=== PATIENT | female | born 1975 | race Caucasian/White ===

== ENCOUNTER 2017-03-17 15:07 | Inpatient (IN) | payer OTHER, SELFPAY ==
[2017-03-17] MEDS ORDERED: Sodium Chloride 0.9% 1,000 ML IV ONE ×2 (15:53→16:21)
[2017-03-17 16:08] LABS: BASO % 0.7 % (0.0-2.0); EOS % 0.4 % (0.0-4.0); HEMATOCRIT 46.6 % (34.0-47.0); LYMPH # 1.5 K/uL (1.0-4.3); MEAN CELL VOLUME 95.9 fL (81.0-99.0); MEAN CORPUSCULAR HEMOGLOBIN 32.3 pg (27.0-31.0); MEAN CORPUSCULAR HGB CONC 33.7 g/dL (33.0-37.0); MEAN PLATELET VOLUME 9.5 fL (7.2-11.7); MONO # 0.3 K/uL (0.0-0.8); MONO % 7.4 % (0.0-10.0); NRBC % 0.1 % (0.0-2.0); RED CELL DISTRIBUTION WIDTH 14.6 % (11.5-14.5); WHITE BLOOD COUNT 4.1 K/uL (4.8-10.8)
[2017-03-17 16:13] LABS: CHLORIDE 95 mmol/L (98-107); POTASSIUM 3.6 mmol/L (3.6-5.2); SODIUM 128 mmol/L (132-148)
[2017-03-17 16:15] LABS: BILIRUBIN,TOTAL 0.5 mg/dL (0.2-1.3); GFR AFRICAN-AMERICAN > 60
[2017-03-17 16:16] LABS: ALB/GLOB RATIO 1.3 (1.0-2.1); ALKALINE PHOSPHATASE 140 U/L (38-126); ALT/SGPT 29 U/L (9-52); AST/SGOT 16 U/L (14-36); BLOOD UREA NITROGEN 12 mg/dL (7-17); CARBON DIOXIDE 13 mmol/L (22-30); TOTAL PROTEIN 7.2 g/dL (6.3-8.3)
[2017-03-17 16:17] LABS: CALCIUM 8.3 mg/dl (8.6-10.4)
[2017-03-17 16:18] LABS: GLUCOSE,RANDOM 532 mg/dL (65-105)
[2017-03-17] MEDS ORDERED: (Novolin R) Insulin Human Regular 100 units/ml vial IV STA (16:21)
[2017-03-17] MEDS ORDERED: Potassium Chloride 20 mEq/15 ml LIQ UD PO STA (16:25)
[2017-03-17 16:28] LABS: VENOUS BLOOD GAS BASE EXCESS -14.9 mmol/L (0.0-2.0); VENOUS BLOOD GAS PCO2 24 mmHg (40-60); VENOUS BLOOD PH 7.25 (7.32-7.43)
[2017-03-17] MEDS ORDERED: (Novolin R) Insulin Human Regular 100 units/ml vial ONE (16:29)
[2017-03-17] MEDS ORDERED: Potassium Chloride 20 mEq/15 ml LIQ UD ONE (16:29)
[2017-03-17] MEDS ORDERED: Sodium Chloride 0.9% 1,000 ML ONE (16:29)
[2017-03-17 16:32] LABS: RBC URINE < 1 /hpf (0-3); URINE BILIRUBIN NEGATIVE (NEGATIVE); URINE BLOOD NEGATIVE (NEGATIVE); URINE COLOR Straw (YELLOW); URINE GLUCOSE (UA) 3+ mg/dL (Normal); URINE KETONE 2+ mg/dL (NEGATIVE); URINE LEUKOCYTE ESTERASE NEG Leu/uL (Negative); URINE PROTEIN NEGATIVE (NEGATIVE); URINE UROBILINOGEN NORMAL mg/dL (0.2-1.0); WBC URINE 1 /hpf (0-5)
--- NOTE | 2017-03-17 17:00 | RAD ---
HISTORY: chest pain COMPARISON: Chest x-ray performed 07/17/15 TECHNIQUE: Chest, one view. FINDINGS: LUNGS: No focal consolidation. Please note that chest x-ray has limited sensitivity for the detection of pulmonary masses. PLEURA: No significant pleural effusion identified. Slightly asymmetric lucency within the right lung apex ; small right apical pneumothorax cannot be entirely excluded. CARDIOVASCULAR: The cardiomediastinal silhouette appears within normal limits of size. OSSEOUS STRUCTURES: No acute osseous abnormality identified. VISUALIZED UPPER ABDOMEN: Unremarkable. OTHER FINDINGS: None. IMPRESSION: Mild asymmetric lucency within the right lung apex ; small right apical pneumothorax cannot be excluded. If indicated, suggest further evaluation with expiratory film. Findings discussed with Dr. Jansen on 03/17/17 at 4:54 p.m.
[2017-03-17] MEDS ORDERED: Insulin Human Regular 100 UNIT in Sodium Chloride 0.9% 99 ML IV SCH (17:15)
--- NOTE | 2017-03-17 17:31 | CP.PCM.CON ---
History of Present Illness - History of Present Illness History of Present Illness: 40yo F. PMHx IDDM, CKD. p/w DKA. Review of Systems - Review of Systems All systems: reviewed and no additional remarkable complaints except - Gastrointestinal Gastrointestinal: Nausea Past Patient History - Infectious Disease Hx of Infectious Diseases: None - Past Medical History & Family History Past Medical History?: Yes - Past Social History Smoking Status: Never Smoked - CARDIAC Hx Cardiac Disorders: No - PULMONARY Hx Respiratory Disorders: No - NEUROLOGICAL Hx Neurological Disorder: No - HEENT Hx HEENT Problems: No - RENAL Hx Chronic Kidney Disease: No - ENDOCRINE/METABOLIC Hx Endocrine Disorders: Yes Hx Diabetes Mellitus Type 2: Yes (not on meds) - HEMATOLOGICAL/ONCOLOGICAL Hx Blood Disorders: No - INTEGUMENTARY Hx Dermatological Problems: No - MUSCULOSKELETAL/RHEUMATOLOGICAL Hx Musculoskeletal Disorders: No Hx Falls: No - GASTROINTESTINAL Hx Gastrointestinal Disorders: No - GENITOURINARY/GYNECOLOGICAL Hx Genitourinary Disorders: No - PSYCHIATRIC Hx Psychophysiologic Disorder: No Hx Substance Use: No - SURGICAL HISTORY Hx Surgeries: Yes Hx Section: Yes (1995 1997 2005) - ANESTHESIA Hx Anesthesia: Yes Hx Anesthesia Reactions: No Hx Malignant Hyperthermia: No Meds Allergies/Adverse Reactions: Allergies Allergy/AdvReac Type Severity Reaction Status Date / Time No Known Allergies Allergy Verified 03/17/17 15:34 - Medications Medications: Current Medications Insulin Human Regular 100 unit (/ Sodium Chloride) 100 mls @ 3 mls/hr IV .Q24H AUNG Last Admin: 03/17/17 17:26 Dose: 3 mls/hr Physical Exam - Head Exam Head Exam: ATRAUMATIC, NORMAL INSPECTION, NORMOCEPHALIC - ENT Exam ENT Exam: Mucous Membranes Dry - Neck Exam Neck exam: Positive for: Normal Inspection - Respiratory Exam Respiratory Exam: Clear to Auscultation Bilateral, NORMAL BREATHING PATTERN - Cardiovascular Exam Cardiovascular Exam: REGULAR RHYTHM - GI/Abdominal Exam GI & Abdominal Exam: Normal Bowel Sounds, Soft. absent: Tenderness - Extremities Exam Extremities exam: Positive for: normal inspection - Neurological Exam Neurological exam: Alert, CN II-XII Intact, Oriented x3, Reflexes Normal - Psychiatric Exam Psychiatric exam: Normal Affect, Normal Mood Results - Vital Signs Recent Vital Signs: Last Vital Signs Temp 97.9 F 03/17/17 15:15 Pulse 73 03/17/17 17:25 Resp 18 03/17/17 17:25 BP 94/65 L 10/05/17 17:25 Pulse Ox 99 03/17/17 17:25 - Labs Result Diagrams: 03/17/17 16:02 03/17/17 16:02 Labs: Laboratory Results - last 24 hr 03/17/17 03/17/17 03/17/17 15:39 16:02 16:02 WBC 4.1 L RBC 4.86 Hgb 15.7 D Hct 46.6 MCV 95.9 D MCH 32.3 H MCHC 33.7 RDW 14.6 H Plt Count 212 MPV 9.5 Neut % (Auto) 56.5 Lymph % (Auto) 35.0 Ray % (Auto) 7.4 Eos % (Auto) 0.4 Baso % (Auto) 0.7 Neut # 2.3 Lymph # 1.5 Ray # 0.3 Eos # 0.0 Baso # 0.0 pO2 VBG pH VBG pCO2 VBG HCO3 VBG Total CO2 VBG O2 Sat (Calc) VBG Base Excess VBG Potassium A-a O2 Difference Glucose Lactate FiO2 Crit Value Called To Crit Value Called By Crit Value Read Back Blood Gas Notified Time Sodium 128 L Potassium 3.6 Chloride 95 L Carbon Dioxide 13 L Anion Gap 24 H BUN 12 Creatinine 0.5 L Est GFR ( Amer) > 60 Est GFR (Non-Af Amer) > 60 POC Glucose (mg/dL) 434 H* Random Glucose 532 H* D Calcium 8.3 L Total Bilirubin 0.5 AST 16 ALT 29 Alkaline Phosphatase 140 H Troponin I < 0.0120 Total Protein 7.2 Albumin 4.1 Globulin 3.1 Albumin/Globulin Ratio 1.3 Venous Blood Potassium Urine Color Urine Clarity Urine pH Ur Specific Perry Urine Protein Urine Glucose (UA) Urine Ketones Urine Blood Urine Nitrate Urine Bilirubin Urine Urobilinogen Ur Leukocyte Esterase Urine WBC (Auto) Urine RBC (Auto) Ur Squamous Epith Cells Urine HCG, Qual Urine Opiates Screen Urine Methadone Screen Ur Barbiturates Screen Ur Phencyclidine Scrn Ur Amphetamines Screen U Benzodiazepines Scrn U Oth Cocaine Metabols U Cannabinoids Screen Serum Ketones Moderate 03/17/17 03/17/17 03/17/17 16:02 16:04 16:04 WBC RBC Hgb Hct MCV MCH MCHC RDW Plt Count MPV Neut % (Auto) Lymph % (Auto) Ray % (Auto) Eos % (Auto) Baso % (Auto) Neut # Lymph # Ray # Eos # Baso # pO2 VBG pH VBG pCO2 VBG HCO3 VBG Total CO2 VBG O2 Sat (Calc) VBG Base Excess VBG Potassium A-a O2 Difference Glucose Lactate FiO2 Crit Value Called To Crit Value Called By Crit Value Read Back Blood Gas Notified Time Sodium Potassium Chloride Carbon Dioxide Anion Gap BUN Creatinine Est GFR ( Amer) Est GFR (Non-Af Amer) POC Glucose (mg/dL) Random Glucose Calcium Total Bilirubin AST ALT Alkaline Phosphatase Troponin I Total Protein Albumin Globulin Albumin/Globulin Ratio Venous Blood Potassium Urine Color Straw Urine Clarity Clear Urine pH 5.0 Ur Specific Perry 1.026 Urine Protein Negative Urine Glucose (UA) 3+ H Urine Ketones 2+ H Urine Blood Negative Urine Nitrate Negative Urine Bilirubin Negative Urine Urobilinogen Normal Ur Leukocyte Esterase Neg Urine WBC (Auto) 1 Urine RBC (Auto) < 1 Ur Squamous Epith Cells < 1 Urine HCG, Qual Negative Urine Opiates Screen Negative Urine Methadone Screen Negative Ur Barbiturates Screen Negative Ur Phencyclidine Scrn Negative Ur Amphetamines Screen Negative U Benzodiazepines Scrn Negative U Oth Cocaine Metabols Negative U Cannabinoids Screen Negative Serum Ketones 03/17/17 16:22 WBC RBC Hgb Hct MCV MCH MCHC RDW Plt Count MPV Neut % (Auto) Lymph % (Auto) Ray % (Auto) Eos % (Auto) Baso % (Auto) Neut # Lymph # Ray # Eos # Baso # pO2 63 H VBG pH 7.25 L VBG pCO2 24 L VBG HCO3 13.0 VBG Total CO2 11.2 L VBG O2 Sat (Calc) 92.7 H VBG Base Excess -14.9 L VBG Potassium 3.0 L A-a O2 Difference 57.0 Glucose 463 H* Lactate 0.7 FiO2 21.0 Crit Value Called To Tejal Crit Value Called By Stevenson endoscopy technician Crit Value Read Back Y Blood Gas Notified Time 1628 Sodium 132.0 Potassium Chloride 103.0 Carbon Dioxide Anion Gap BUN Creatinine Est GFR ( Amer) Est GFR (Non-Af Amer) POC Glucose (mg/dL) Random Glucose Calcium Total Bilirubin AST ALT Alkaline Phosphatase Troponin I Total Protein Albumin Globulin Albumin/Globulin Ratio Venous Blood Potassium 3.0 L Urine Color Urine Clarity Urine pH Ur Specific Perry Urine Protein Urine Glucose (UA) Urine Ketones Urine Blood Urine Nitrate Urine Bilirubin Urine Urobilinogen Ur Leukocyte Esterase Urine WBC (Auto) Urine RBC (Auto) Ur Squamous Epith Cells Urine HCG, Qual Urine Opiates Screen Urine Methadone Screen Ur Barbiturates Screen Ur Phencyclidine Scrn Ur Amphetamines Screen U Benzodiazepines Scrn U Oth Cocaine Metabols U Cannabinoids Screen Serum Ketones Assessment & Plan (1) DKA (diabetic ketoacidoses) Assessment and Plan: 40yo F. PMHx IDDM, CKD. p/w DKA secondary to non-compliance. Neuro: alert and oriented x 3 Pulm: no acute issues, breathing spontaneously on room air CV: hemodynamically stable Hem: no acute issues Renal: no acute issues, urine output wnl, will monitor. [id number]@200 Endo: DKA, started on insulin drip. GI: NPO ID: no acute issues, will monitor. DVT proph - lovenox GI proph - not currently indicated khoury for strict I/O's during acute illness Code status - full code Critical Care Time spent 35 minutes The documented time is cumulative and includes review of patient data/exams/labs /chart review and examination of the patient on rounds and throughout the day; time is exclusive of any procedures or teaching time. Status: Acute
--- NOTE | 2017-03-17 17:57 | RAD ---
HISTORY: follow up x-ray COMPARISON: Chest x-ray performed 03/17/17 at 1613 hours. TECHNIQUE: Chest, one view. FINDINGS: LUNGS: No focal consolidation. Please note that chest x-ray has limited sensitivity for the detection of pulmonary masses. PLEURA: No significant pleural effusion identified. No definite pneumothorax . CARDIOVASCULAR: Heart size appears within normal limits. OSSEOUS STRUCTURES: Degenerative changes. VISUALIZED UPPER ABDOMEN: Unremarkable. OTHER FINDINGS: None. IMPRESSION: No focal consolidation, significant pleural effusion, or definite pneumothorax identified.
--- NOTE | 2017-03-17 18:23 | C.PDOC ---
History Of Present Illness 41 year old female presents to the ED for evaluation of generalized weakness which began around 3 days ago. Patient also reports nausea. Patient states she is a known Insulin Dependent Diabetic but has not taken insulin in around 6 months. Patient states she has been eating normally and denies fever, chills, shortness of breath, vomiting. Time Seen by Provider: 03/17/17 15:48 Chief Complaint (Nursing): Chest Pain History Per: Patient History/Exam Limitations: no limitations Onset/Duration Of Symptoms: Days (3) Current Symptoms Are (Timing): Still Present Associated Symptoms: Nausea Additional History Per: Patient Past Medical History Reviewed: Historical Data, Nursing Documentation, Vital Signs Vital Signs: Last Vital Signs Temp 98.4 F 03/17/17 20:00 Pulse 63 03/17/17 21:50 Resp 14 03/17/17 21:50 BP 91/59 L 03/17/17 21:50 Pulse Ox 99 03/17/17 21:50 - Medical History PMH: Diabetes Surgical History: No Surg Hx - [facility] Procedures INTRODUCTION OF SERUM/TOX/VACCINE INTO MUSCLE, PERC APPROACH (07/17/15) Family History: States: Unknown Family Hx - Social History Hx Tobacco Use: No Hx Alcohol Use: No Hx Substance Use: No Review Of Systems Constitutional: Positive for: Weakness. Negative for: Fever, Chills Respiratory: Negative for: Shortness of Breath Gastrointestinal: Positive for: Nausea. Negative for: Vomiting Physical Exam - Physical Exam Appears: Non-toxic, No Acute Distress Skin: Normal Color, Warm, Dry Head: Atraumatic, Normacephalic Eye(s): bilateral: Normal Inspection Oral Mucosa: Dry Neck: Supple Chest: Symmetrical, No Deformity, No Tenderness Cardiovascular: Rhythm Regular, No Murmur Respiratory: Normal Breath Sounds, No Rales, No Rhonchi, No Wheezing Gastrointestinal/Abdominal: Soft, No Tenderness, No Guarding, No Rebound Extremity: Normal ROM, Capillary Refill (less than 2 seconds ) Neurological/Psych: Oriented x3, Normal Speech, Normal Cognition Gait: Steady ED Course And Treatment - Laboratory Results Result Diagrams: 03/17/17 16:02 03/17/17 20:51 O2 Sat by Pulse Oximetry: 98 (on RA) Pulse Ox Interpretation: Normal Progress Note: labs, EKG, CXR ordered and reviewed. Novolin IV, Potassium Chloride PO, and IV Fluids administered. Case discussed with [facility] and hospitalist. Patient has been accepted by [facility] for further care. Disposition - Disposition Disposition: HOSPITALIZED Disposition Time: 17:00 Condition: GUARDED - Clinical Impression Clinical Impression: DKA (diabetic ketoacidoses) - Scribe Statement The provider has reviewed the documentation as recorded by the Scribe (Lauren Lynn) Provider Attestation: All medical record entries made by the Scribe were at my direction and personally dictated by me. I have reviewed the chart and agree that the record accurately reflects my personal performance of the history, physical exam, medical decision making, and the department course for this patient. I have also personally directed, reviewed, and agree with the discharge instructions and disposition.
[2017-03-17] MEDS ORDERED: Insulin Human Regular 100 UNIT in Sodium Chloride 0.9% 99 ML IV PRN (18:51)
[2017-03-17] MEDS: Potassium Chloride 20 MEQ in Dextrose 5%/0.9% NS 1,000 ML IV SCH (21:00)
[2017-03-17 21:03] LABS: CHLORIDE 106 mmol/L (98-107); SODIUM 132 mmol/L (132-148)
[2017-03-17 21:04] LABS: POTASSIUM 2.7 mmol/L (3.6-5.2)
[2017-03-17 21:06] LABS: GFR AFRICAN-AMERICAN > 60
[2017-03-17 21:07] LABS: BLOOD UREA NITROGEN 9 mg/dL (7-17); CALCIUM 6.5 mg/dl (8.6-10.4); CARBON DIOXIDE 17 mmol/L (22-30); GLUCOSE,RANDOM 113 mg/dL (65-105)
[2017-03-18 01:05] LABS: CHLORIDE 108 mmol/L (98-107); POTASSIUM 2.9 mmol/L (3.6-5.2); SODIUM 134 mmol/L (132-148)
[2017-03-18 01:08] LABS: BLOOD UREA NITROGEN 7 mg/dL (7-17); CALCIUM 7.1 mg/dl (8.6-10.4); CARBON DIOXIDE 20 mmol/L (22-30); GFR AFRICAN-AMERICAN > 60; GLUCOSE,RANDOM 103 mg/dL (65-105)
[2017-03-18] MEDS ORDERED: (Lantus) Insulin Glargine, Recombinant SC STA (01:33)
[2017-03-18] MEDS: Potassium Chloride 20 MEQ in Dextrose 5%/0.9% NS 1,000 ML IV SCH (01:53)
[2017-03-18 06:24] LABS: BASO % 0.3 % (0.0-2.0); EOS # 0.1 K/uL (0.0-0.7); EOS % 1.4 % (0.0-4.0); HEMATOCRIT 33.9 % (34.0-47.0); LYMPH # 1.8 K/uL (1.0-4.3); LYMPH % 37.4 % (20.0-40.0); MEAN CORPUSCULAR HEMOGLOBIN 32.8 pg (27.0-31.0); MEAN CORPUSCULAR HGB CONC 35.2 g/dL (33.0-37.0); MONO # 0.4 K/uL (0.0-0.8); MONO % 7.9 % (0.0-10.0); NRBC % 0.1 % (0.0-2.0); RED CELL DISTRIBUTION WIDTH 14.5 % (11.5-14.5); WHITE BLOOD COUNT 4.8 K/uL (4.8-10.8)
[2017-03-18 06:36] LABS: CHLORIDE 111 mmol/L (98-107)
[2017-03-18 06:38] LABS: GFR AFRICAN-AMERICAN > 60
[2017-03-18 06:39] LABS: BLOOD UREA NITROGEN 9 mg/dL (7-17); CALCIUM 7.4 mg/dl (8.6-10.4); CARBON DIOXIDE 18 mmol/L (22-30); GLUCOSE,RANDOM 127 mg/dL (65-105); MAGNESIUM 1.7 mg/dL (1.6-2.3); PHOSPHOROUS 2.8 mg/dL (2.5-4.5)
[2017-03-18 06:42] LABS: SODIUM 136 mmol/L (132-148)
[2017-03-18] MEDS ORDERED: Magnesium Sulfate 1 gm in D5W 1 GM/100 ML BAG IVPB ONE (07:15)
[2017-03-18] MEDS: (Novolog) Insulin Aspart, Recombinant 100 u/ml 10 ml vial SC SCH ×4 (07:38→23:33)
[2017-03-18] MEDS ORDERED: Potassium Chloride 20 mEq ER Tab PO ONE ×2 (08:00→08:58)
--- NOTE | 2017-03-18 09:01 | CP.CCUPN ---
CCU Subjective - Physician Review Subjective (Free Text): Patient was seen and examined at bedside. Patient reports that she is doing well and her symptoms have improved. Patient denies chest pain, SOB, palpitations, abdominal pain, nausea, vomiting, urinary symptoms. The importance of glucose control was discussed with patient and patient understood and plans to obtain tejal care in order to obtain access to care. CCU Objective - Vital Signs / Intake & Output Vital Signs (Last 4 hours): Vital Signs Temp Pulse Resp BP Pulse Ox 03/18/17 08:00 79 17 100 03/18/17 07:51 98 F 03/18/17 07:50 64 13 81/55 L 99 03/18/17 07:37 59 L 14 82/56 L 03/18/17 06:50 63 13 93/65 L 99 03/18/17 05:50 71 12 82/53 L 97 Intake and Output (Last 8hrs): Intake & Output 03/17/17 03/18/17 03/18/17 22:59 06:59 14:59 Intake Total 1010 1214 220 Output Total 0 1100 Balance 1010 1214 -880 Weight 107 lb 8 oz 108 lb Intake: Intake, IV Amount 1010 1214 100 Left Forearm 1000 1200 0 Right Wrist 10 14 100 Oral 0 120 Output: Urine 0 1100 Urine, Voided 0 1100 Other: # Voids Urine, Voided 0 # Bowel Movements 0 - Physical Exam Head: Positive for: Atraumatic, Normocephalic Extroacular Muscles: Positive for: EOMI Mouth: Positive for: Moist Mucous Membranes Respiratory/Chest: Positive for: Clear to Auscultation, Good Air Exchange. Negative for: Respiratory Distress, Accessory Muscle Use Abdomen: Positive for: Normal Bowel Sounds. Negative for: Tenderness, Distention Upper Extremity: Positive for: Normal Inspection. Negative for: Edema Lower Extremity: Positive for: Normal Inspection. Negative for: Edema Neurological: Positive for: GCS=15, Speech Normal Skin: Positive for: Warm, Normal Color Psychiatric: Positive for: Alert, Oriented x 3 - Medications Active Medications: Active Medications Generic Name Dose Route Start Last Admin Trade Name Freq PRN Reason Stop Dose Admin Potassium Chloride 20 meq in 100 mls @ 50 mls/hr 03/18/17 07:15 03/18/17 07: 25 Potassium Chloride 20 Meq/100 Ml IVPB 03/18/17 09:14 50 mls/hr ONCE ONE Administration Insulin Aspart 0 unit 03/18/17 07:30 03/18/17 07:38 Novolog SC Not Given ACHS AUNG Protocol Insulin Glargine 10 unit 03/18/17 22:00 Lantus SC HS AUNG Potassium Chloride 40 meq 03/18/17 08:58 K-Dur 20 Meq Er Tab PO 03/18/17 08:59 ONCE ONE - Patient Studies Lab Studies: Lab Studies 03/18/17 03/18/17 03/18/17 Range/Units 07:37 06:17 06:17 WBC 4.8 (4.8-10.8) K/uL RBC 3.65 L (3.80-5.20) Mil/uL Hgb 12.0 D (11.0-16.0) g/dL Hct 33.9 L (34.0-47.0) % MCV 93.0 D (81.0-99.0) fL MCH 32.8 H (27.0-31.0) pg MCHC 35.2 (33.0-37.0) g/dL RDW 14.5 (11.5-14.5) % Plt Count 153 (130-400) K/uL MPV 9.0 (7.2-11.7) fL Neut % (Auto) 53.0 (50.0-75.0) % Lymph % (Auto) 37.4 (20.0-40.0) % [place] % (Auto) 7.9 (0.0-10.0) % Eos % (Auto) 1.4 (0.0-4.0) % Baso % (Auto) 0.3 (0.0-2.0) % Neut # 2.5 (1.8-7.0) K/uL Lymph # 1.8 (1.0-4.3) K/uL Sl[place] # 0.4 (0.0-0.8) K/uL Eos # 0.1 (0.0-0.7) K/uL Baso # 0.0 (0.0-0.2) K/uL pO2 (30-55) mm/Hg VBG pH (7.32-7.43) VBG pCO2 (40-60) mmHg VBG HCO3 mmol/L VBG Total CO2 (22-28) mmol/L VBG O2 Sat (Calc) (40-65) % VBG Base Excess (0.0-2.0) mmol/L VBG Potassium (3.6-5.2) mmol/L A-a O2 Difference mm/Hg Glucose (65-105) mg/dl Lactate (0.7-2.1) mmol/L FiO2 % Crit Value Called To Crit Value Called By Crit Value Read Back Blood Gas Notified Time Sodium 136 (132-148) mmol/L Potassium 3.0 L (3.6-5.2) mmol/L Chloride 111 H (98-107) mmol/L Carbon Dioxide 18 L (22-30) mmol/L Anion Gap 10 (10-20) BUN 9 (7-17) mg/dL Creatinine 0.3 L (0.7-1.2) mg/dL Est GFR ( Amer) > 60 Est GFR (Non-Af Amer) > 60 POC Glucose (mg/dL) 111 H (65-110) mg/dL Random Glucose 127 H (65-105) mg/dL Calcium 7.4 L (8.6-10.4) mg/dl Phosphorus 2.8 (2.5-4.5) mg/dL Magnesium 1.7 (1.6-2.3) mg/dL Total Bilirubin (0.2-1.3) mg/dL AST (14-36) U/L ALT (9-52) U/L Alkaline Phosphatase (38-126) U/L Troponin I (0.00-0.120) ng/mL Total Protein (6.3-8.3) g/dL Albumin (3.5-5.0) g/dL Globulin (2.2-3.9) gm/dL Albumin/Globulin Ratio (1.0-2.1) Venous Blood Potassium (3.6-5.2) mmol/L Urine Color (YELLOW) Urine Clarity (Clear) Urine pH (5.0-8.0) Ur Specific [place] (1.003-1.030) Urine Protein (NEGATIVE) mg/dL Urine Glucose (UA) (Normal) mg/dL Urine Ketones (NEGATIVE) mg/dL Urine Blood (NEGATIVE) Urine Nitrate (NEGATIVE) Urine Bilirubin (NEGATIVE) Urine Urobilinogen (0.2-1.0) mg/dL Ur Leukocyte Esterase (Negative) Cheikh/uL Urine WBC (Auto) (0-5) /hpf Urine RBC (Auto) (0-3) /hpf Ur Squamous Epith Cells (0-5) /hpf Urine HCG, Qual (NEGATIVE) Urine Opiates Screen (NEGATIVE) Urine Methadone Screen (NEGATIVE) Ur Barbiturates Screen (NEGATIVE) Ur Phencyclidine Scrn (NEGATIVE) Ur Amphetamines Screen (NEGATIVE) U Benzodiazepines Scrn (NEGATIVE) U Oth Cocaine Metabols (NEGATIVE) U Cannabinoids Screen (NEGATIVE) Serum Ketones (NEGATIVE) 03/18/17 03/18/17 03/18/17 Range/Units 05:58 05:00 04:06 WBC (4.8-10.8) K/uL RBC (3.80-5.20) Mil/uL Hgb (11.0-16.0) g/dL Hct (34.0-47.0) % MCV (81.0-99.0) fL MCH (27.0-31.0) pg MCHC (33.0-37.0) g/dL RDW (11.5-14.5) % Plt Count (130-400) K/uL MPV (7.2-11.7) fL Neut % (Auto) (50.0-75.0) % Lymph % (Auto) (20.0-40.0) % [place] % (Auto) (0.0-10.0) % Eos % (Auto) (0.0-4.0) % Baso % (Auto) (0.0-2.0) % Neut # (1.8-7.0) K/uL Lymph # (1.0-4.3) K/uL [place] # (0.0-0.8) K/uL Eos # (0.0-0.7) K/uL Baso # (0.0-0.2) K/uL pO2 (30-55) mm/Hg VBG pH (7.32-7.43) VBG pCO2 (40-60) mmHg VBG HCO3 mmol/L VBG Total CO2 (22-28) mmol/L VBG O2 Sat (Calc) (40-65) % VBG Base Excess (0.0-2.0) mmol/L VBG Potassium (3.6-5.2) mmol/L A-a O2 Difference mm/Hg Glucose (65-105) mg/dl Lactate (0.7-2.1) mmol/L FiO2 % Crit Value Called To Crit Value Called By Crit Value Read Back Blood Gas Notified Time Sodium (132-148) mmol/L Potassium (3.6-5.2) mmol/L Chloride (98-107) mmol/L Carbon Dioxide (22-30) mmol/L Anion Gap (10-20) BUN (7-17) mg/dL Creatinine (0.7-1.2) mg/dL Est GFR ( Amer) Est GFR (Non-Af Amer) POC Glucose (mg/dL) 183 H 237 H 296 H (65-110) mg/dL Random Glucose (65-105) mg/dL Calcium (8.6-10.4) mg/dl Phosphorus (2.5-4.5) mg/dL Magnesium (1.6-2.3) mg/dL Total Bilirubin (0.2-1.3) mg/dL AST (14-36) U/L ALT (9-52) U/L Alkaline Phosphatase (38-126) U/L Troponin I (0.00-0.120) ng/mL Total Protein (6.3-8.3) g/dL Albumin (3.5-5.0) g/dL Globulin (2.2-3.9) gm/dL Albumin/Globulin Ratio (1.0-2.1) Venous Blood Potassium (3.6-5.2) mmol/L Urine Color (YELLOW) Urine Clarity (Clear) Urine pH (5.0-8.0) Ur Specific [place] (1.003-1.030) Urine Protein (NEGATIVE) mg/dL Urine Glucose (UA) (Normal) mg/dL Urine Ketones (NEGATIVE) mg/dL Urine Blood (NEGATIVE) Urine Nitrate (NEGATIVE) Urine Bilirubin (NEGATIVE) Urine Urobilinogen (0.2-1.0) mg/dL Ur Leukocyte Esterase (Negative) Cheikh/uL Urine WBC (Auto) (0-5) /hpf Urine RBC (Auto) (0-3) /hpf Ur Squamous Epith Cells (0-5) /hpf Urine HCG, Qual (NEGATIVE) Urine Opiates Screen (NEGATIVE) Urine Methadone Screen (NEGATIVE) Ur Barbiturates Screen (NEGATIVE) Ur Phencyclidine Scrn (NEGATIVE) Ur Amphetamines Screen (NEGATIVE) U Benzodiazepines Scrn (NEGATIVE) U Oth Cocaine Metabols (NEGATIVE) U Cannabinoids Screen (NEGATIVE) Serum Ketones (NEGATIVE) 03/18/17 03/18/17 03/18/17 Range/Units 03:11 01:02 00:50 WBC (4.8-10.8) K/uL RBC (3.80-5.20) Mil/uL Hgb (11.0-16.0) g/dL Hct (34.0-47.0) % MCV (81.0-99.0) fL MCH (27.0-31.0) pg MCHC (33.0-37.0) g/dL RDW (11.5-14.5) % Plt Count (130-400) K/uL MPV (7.2-11.7) fL Neut % (Auto) (50.0-75.0) % Lymph % (Auto) (20.0-40.0) % [place] % (Auto) (0.0-10.0) % Eos % (Auto) (0.0-4.0) % Baso % (Auto) (0.0-2.0) % Neut # (1.8-7.0) K/uL Lymph # (1.0-4.3) K/uL [place] # (0.0-0.8) K/uL Eos # (0.0-0.7) K/uL Baso # (0.0-0.2) K/uL pO2 (30-55) mm/Hg VBG pH (7.32-7.43) VBG pCO2 (40-60) mmHg VBG HCO3 mmol/L VBG Total CO2 (22-28) mmol/L VBG O2 Sat (Calc) (40-65) % VBG Base Excess (0.0-2.0) mmol/L VBG Potassium (3.6-5.2) mmol/L A-a O2 Difference mm/Hg Glucose (65-105) mg/dl Lactate (0.7-2.1) mmol/L FiO2 % Crit Value Called To Crit Value Called By Crit Value Read Back Blood Gas Notified Time Sodium 134 (132-148) mmol/L Potassium 2.9 L (3.6-5.2) mmol/L Chloride 108 H (98-107) mmol/L Carbon Dioxide 20 L (22-30) mmol/L Anion Gap 9 L (10-20) BUN 7 (7-17) mg/dL Creatinine 0.3 L (0.7-1.2) mg/dL Est GFR ( Amer) > 60 Est GFR (Non-Af Amer) > 60 POC Glucose (mg/dL) 315 H 111 H (65-110) mg/dL Random Glucose 103 (65-105) mg/dL Calcium 7.1 L (8.6-10.4) mg/dl Phosphorus (2.5-4.5) mg/dL Magnesium (1.6-2.3) mg/dL Total Bilirubin (0.2-1.3) mg/dL AST (14-36) U/L ALT (9-52) U/L Alkaline Phosphatase (38-126) U/L Troponin I (0.00-0.120) ng/mL Total Protein (6.3-8.3) g/dL Albumin (3.5-5.0) g/dL Globulin (2.2-3.9) gm/dL Albumin/Globulin Ratio (1.0-2.1) Venous Blood Potassium (3.6-5.2) mmol/L Urine Color (YELLOW) Urine Clarity (Clear) Urine pH (5.0-8.0) Ur Specific [place] (1.003-1.030) Urine Protein (NEGATIVE) mg/dL Urine Glucose (UA) (Normal) mg/dL Urine Ketones (NEGATIVE) mg/dL Urine Blood (NEGATIVE) Urine Nitrate (NEGATIVE) Urine Bilirubin (NEGATIVE) Urine Urobilinogen (0.2-1.0) mg/dL Ur Leukocyte Esterase (Negative) Cheikh/uL Urine WBC (Auto) (0-5) /hpf Urine RBC (Auto) (0-3) /hpf Ur Squamous Epith Cells (0-5) /hpf Urine HCG, Qual (NEGATIVE) Urine Opiates Screen (NEGATIVE) Urine Methadone Screen (NEGATIVE) Ur Barbiturates Screen (NEGATIVE) Ur Phencyclidine Scrn (NEGATIVE) Ur Amphetamines Screen (NEGATIVE) U Benzodiazepines Scrn (NEGATIVE) U Oth Cocaine Metabols (NEGATIVE) U Cannabinoids Screen (NEGATIVE) Serum Ketones (NEGATIVE) 03/17/17 03/17/17 03/17/17 Range/Units 23:57 23:07 22:05 WBC (4.8-10.8) K/uL RBC (3.80-5.20) Mil/uL Hgb (11.0-16.0) g/dL Hct (34.0-47.0) % MCV (81.0-99.0) fL MCH (27.0-31.0) pg MCHC (33.0-37.0) g/dL RDW (11.5-14.5) % Plt Count (130-400) K/uL MPV (7.2-11.7) fL Neut % (Auto) (50.0-75.0) % Lymph % (Auto) (20.0-40.0) % [place] % (Auto) (0.0-10.0) % Eos % (Auto) (0.0-4.0) % Baso % (Auto) (0.0-2.0) % Neut # (1.8-7.0) K/uL Lymph # (1.0-4.3) K/uL [place] # (0.0-0.8) K/uL Eos # (0.0-0.7) K/uL Baso # (0.0-0.2) K/uL pO2 (30-55) mm/Hg VBG pH (7.32-7.43) VBG pCO2 (40-60) mmHg VBG HCO3 mmol/L VBG Total CO2 (22-28) mmol/L VBG O2 Sat (Calc) (40-65) % VBG Base Excess (0.0-2.0) mmol/L VBG Potassium (3.6-5.2) mmol/L A-a O2 Difference mm/Hg Glucose (65-105) mg/dl Lactate (0.7-2.1) mmol/L FiO2 % Crit Value Called To Crit Value Called By Crit Value Read Back Blood Gas Notified Time Sodium (132-148) mmol/L Potassium (3.6-5.2) mmol/L Chloride (98-107) mmol/L Carbon Dioxide (22-30) mmol/L Anion Gap (10-20) BUN (7-17) mg/dL Creatinine (0.7-1.2) mg/dL Est GFR ( Amer) Est GFR (Non-Af Amer) POC Glucose (mg/dL) 133 H 166 H 172 H (65-110) mg/dL Random Glucose (65-105) mg/dL Calcium (8.6-10.4) mg/dl Phosphorus (2.5-4.5) mg/dL Magnesium (1.6-2.3) mg/dL Total Bilirubin (0.2-1.3) mg/dL AST (14-36) U/L ALT (9-52) U/L Alkaline Phosphatase (38-126) U/L Troponin I (0.00-0.120) ng/mL Total Protein (6.3-8.3) g/dL Albumin (3.5-5.0) g/dL Globulin (2.2-3.9) gm/dL Albumin/Globulin Ratio (1.0-2.1) Venous Blood Potassium (3.6-5.2) mmol/L Urine Color (YELLOW) Urine Clarity (Clear) Urine pH (5.0-8.0) Ur Specific [place] (1.003-1.030) Urine Protein (NEGATIVE) mg/dL Urine Glucose (UA) (Normal) mg/dL Urine Ketones (NEGATIVE) mg/dL Urine Blood (NEGATIVE) Urine Nitrate (NEGATIVE) Urine Bilirubin (NEGATIVE) Urine Urobilinogen (0.2-1.0) mg/dL Ur Leukocyte Esterase (Negative) Cheikh/uL Urine WBC (Auto) (0-5) /hpf Urine RBC (Auto) (0-3) /hpf Ur Squamous Epith Cells (0-5) /hpf Urine HCG, Qual (NEGATIVE) Urine Opiates Screen (NEGATIVE) Urine Methadone Screen (NEGATIVE) Ur Barbiturates Screen (NEGATIVE) Ur Phencyclidine Scrn (NEGATIVE) Ur Amphetamines Screen (NEGATIVE) U Benzodiazepines Scrn (NEGATIVE) U Oth Cocaine Metabols (NEGATIVE) U Cannabinoids Screen (NEGATIVE) Serum Ketones (NEGATIVE) 03/17/17 03/17/17 03/17/17 Range/Units 21:04 20:51 20:17 WBC (4.8-10.8) K/uL RBC (3.80-5.20) Mil/uL Hgb (11.0-16.0) g/dL Hct (34.0-47.0) % MCV (81.0-99.0) fL MCH (27.0-31.0) pg MCHC (33.0-37.0) g/dL RDW (11.5-14.5) % Plt Count (130-400) K/uL MPV (7.2-11.7) fL Neut % (Auto) (50.0-75.0) % Lymph % (Auto) (20.0-40.0) % [place] % (Auto) (0.0-10.0) % Eos % (Auto) (0.0-4.0) % Baso % (Auto) (0.0-2.0) % Neut # (1.8-7.0) K/uL Lymph # (1.0-4.3) K/uL [place] # (0.0-0.8) K/uL Eos # (0.0-0.7) K/uL Baso # (0.0-0.2) K/uL pO2 (30-55) mm/Hg VBG pH (7.32-7.43) VBG pCO2 (40-60) mmHg VBG HCO3 mmol/L VBG Total CO2 (22-28) mmol/L VBG O2 Sat (Calc) (40-65) % VBG Base Excess (0.0-2.0) mmol/L VBG Potassium (3.6-5.2) mmol/L A-a O2 Difference mm/Hg Glucose (65-105) mg/dl Lactate (0.7-2.1) mmol/L FiO2 % Crit Value Called To Crit Value Called By Crit Value Read Back Blood Gas Notified Time Sodium 132 (132-148) mmol/L Potassium 2.7 L (3.6-5.2) mmol/L Chloride 106 (98-107) mmol/L Carbon Dioxide 17 L (22-30) mmol/L Anion Gap 12 (10-20) BUN 9 (7-17) mg/dL Creatinine 0.3 L (0.7-1.2) mg/dL Est GFR ( Amer) > 60 Est GFR (Non-Af Amer) > 60 POC Glucose (mg/dL) 136 H 126 H (65-110) mg/dL Random Glucose 113 H (65-105) mg/dL Calcium 6.5 L (8.6-10.4) mg/dl Phosphorus (2.5-4.5) mg/dL Magnesium (1.6-2.3) mg/dL Total Bilirubin (0.2-1.3) mg/dL AST (14-36) U/L ALT (9-52) U/L Alkaline Phosphatase (38-126) U/L Troponin I (0.00-0.120) ng/mL Total Protein (6.3-8.3) g/dL Albumin (3.5-5.0) g/dL Globulin (2.2-3.9) gm/dL Albumin/Globulin Ratio (1.0-2.1) Venous Blood Potassium (3.6-5.2) mmol/L Urine Color (YELLOW) Urine Clarity (Clear) Urine pH (5.0-8.0) Ur Specific [place] (1.003-1.030) Urine Protein (NEGATIVE) mg/dL Urine Glucose (UA) (Normal) mg/dL Urine Ketones (NEGATIVE) mg/dL Urine Blood (NEGATIVE) Urine Nitrate (NEGATIVE) Urine Bilirubin (NEGATIVE) Urine Urobilinogen (0.2-1.0) mg/dL Ur Leukocyte Esterase (Negative) Cheikh/uL Urine WBC (Auto) (0-5) /hpf Urine RBC (Auto) (0-3) /hpf Ur Squamous Epith Cells (0-5) /hpf Urine HCG, Qual (NEGATIVE) Urine Opiates Screen (NEGATIVE) Urine Methadone Screen (NEGATIVE) Ur Barbiturates Screen (NEGATIVE) Ur Phencyclidine Scrn (NEGATIVE) Ur Amphetamines Screen (NEGATIVE) U Benzodiazepines Scrn (NEGATIVE) U Oth Cocaine Metabols (NEGATIVE) U Cannabinoids Screen (NEGATIVE) Serum Ketones (NEGATIVE) 03/17/17 03/17/17 03/17/17 Range/Units 19:34 18:04 17:26 WBC (4.8-10.8) K/uL RBC (3.80-5.20) Mil/uL Hgb (11.0-16.0) g/dL Hct (34.0-47.0) % MCV (81.0-99.0) fL MCH (27.0-31.0) pg MCHC (33.0-37.0) g/dL RDW (11.5-14.5) % Plt Count (130-400) K/uL MPV (7.2-11.7) fL Neut % (Auto) (50.0-75.0) % Lymph % (Auto) (20.0-40.0) % [place] % (Auto) (0.0-10.0) % Eos % (Auto) (0.0-4.0) % Baso % (Auto) (0.0-2.0) % Neut # (1.8-7.0) K/uL Lymph # (1.0-4.3) K/uL [place] # (0.0-0.8) K/uL Eos # (0.0-0.7) K/uL Baso # (0.0-0.2) K/uL pO2 (30-55) mm/Hg VBG pH (7.32-7.43) VBG pCO2 (40-60) mmHg VBG HCO3 mmol/L VBG Total CO2 (22-28) mmol/L VBG O2 Sat (Calc) (40-65) % VBG Base Excess (0.0-2.0) mmol/L VBG Potassium (3.6-5.2) mmol/L A-a O2 Difference mm/Hg Glucose (65-105) mg/dl Lactate (0.7-2.1) mmol/L FiO2 % Crit Value Called To Crit Value Called By Crit Value Read Back Blood Gas Notified Time Sodium (132-148) mmol/L Potassium (3.6-5.2) mmol/L Chloride (98-107) mmol/L Carbon Dioxide (22-30) mmol/L Anion Gap (10-20) BUN (7-17) mg/dL Creatinine (0.7-1.2) mg/dL Est GFR ( Amer) Est GFR (Non-Af Amer) POC Glucose (mg/dL) 165 H 245 H 316 H (65-110) mg/dL Random Glucose (65-105) mg/dL Calcium (8.6-10.4) mg/dl Phosphorus (2.5-4.5) mg/dL Magnesium (1.6-2.3) mg/dL Total Bilirubin (0.2-1.3) mg/dL AST (14-36) U/L ALT (9-52) U/L Alkaline Phosphatase (38-126) U/L Troponin I (0.00-0.120) ng/mL Total Protein (6.3-8.3) g/dL Albumin (3.5-5.0) g/dL Globulin (2.2-3.9) gm/dL Albumin/Globulin Ratio (1.0-2.1) Venous Blood Potassium (3.6-5.2) mmol/L Urine Color (YELLOW) Urine Clarity (Clear) Urine pH (5.0-8.0) Ur Specific [place] (1.003-1.030) Urine Protein (NEGATIVE) mg/dL Urine Glucose (UA) (Normal) mg/dL Urine Ketones (NEGATIVE) mg/dL Urine Blood (NEGATIVE) Urine Nitrate (NEGATIVE) Urine Bilirubin (NEGATIVE) Urine Urobilinogen (0.2-1.0) mg/dL Ur Leukocyte Esterase (Negative) Cheikh/uL Urine WBC (Auto) (0-5) /hpf Urine RBC (Auto) (0-3) /hpf Ur Squamous Epith Cells (0-5) /hpf Urine HCG, Qual (NEGATIVE) Urine Opiates Screen (NEGATIVE) Urine Methadone Screen (NEGATIVE) Ur Barbiturates Screen (NEGATIVE) Ur Phencyclidine Scrn (NEGATIVE) Ur Amphetamines Screen (NEGATIVE) U Benzodiazepines Scrn (NEGATIVE) U Oth Cocaine Metabols (NEGATIVE) U Cannabinoids Screen (NEGATIVE) Serum Ketones (NEGATIVE) 03/17/17 03/17/17 03/17/17 Range/Units 16:22 16:04 16:04 WBC (4.8-10.8) K/uL RBC (3.80-5.20) Mil/uL Hgb (11.0-16.0) g/dL Hct (34.0-47.0) % MCV (81.0-99.0) fL MCH (27.0-31.0) pg MCHC (33.0-37.0) g/dL RDW (11.5-14.5) % Plt Count (130-400) K/uL MPV (7.2-11.7) fL Neut % (Auto) (50.0-75.0) % Lymph % (Auto) (20.0-40.0) % [place] % (Auto) (0.0-10.0) % Eos % (Auto) (0.0-4.0) % Baso % (Auto) (0.0-2.0) % Neut # (1.8-7.0) K/uL Lymph # (1.0-4.3) K/uL [place] # (0.0-0.8) K/uL Eos # (0.0-0.7) K/uL Baso # (0.0-0.2) K/uL pO2 63 H (30-55) mm/Hg VBG pH 7.25 L (7.32-7.43) VBG pCO2 24 L (40-60) mmHg VBG HCO3 13.0 mmol/L VBG Total CO2 11.2 L (22-28) mmol/L VBG O2 Sat (Calc) 92.7 H (40-65) % VBG Base Excess -14.9 L (0.0-2.0) mmol/L VBG Potassium 3.0 L (3.6-5.2) mmol/L A-a O2 Difference 57.0 mm/Hg Glucose 463 H* (65-105) mg/dl Lactate 0.7 (0.7-2.1) mmol/L FiO2 21.0 % Crit Value Called To Tejal Crit Value Called By Stevenson marcelo Crit Value Read Back Y Blood Gas Notified Time 1628 Sodium 132.0 (132-148) mmol/L Potassium (3.6-5.2) mmol/L Chloride 103.0 (98-107) mmol/L Carbon Dioxide (22-30) mmol/L Anion Gap (10-20) BUN (7-17) mg/dL Creatinine (0.7-1.2) mg/dL Est GFR ( Amer) Est GFR (Non-Af Amer) POC Glucose (mg/dL) (65-110) mg/dL Random Glucose (65-105) mg/dL Calcium (8.6-10.4) mg/dl Phosphorus (2.5-4.5) mg/dL Magnesium (1.6-2.3) mg/dL Total Bilirubin (0.2-1.3) mg/dL AST (14-36) U/L ALT (9-52) U/L Alkaline Phosphatase (38-126) U/L Troponin I (0.00-0.120) ng/mL Total Protein (6.3-8.3) g/dL Albumin (3.5-5.0) g/dL Globulin (2.2-3.9) gm/dL Albumin/Globulin Ratio (1.0-2.1) Venous Blood Potassium 3.0 L (3.6-5.2) mmol/L Urine Color Straw (YELLOW) Urine Clarity Clear (Clear) Urine pH 5.0 (5.0-8.0) Ur Specific [place] 1.026 (1.003-1.030) Urine Protein Negative (NEGATIVE) mg/dL Urine Glucose (UA) 3+ H (Normal) mg/dL Urine Ketones 2+ H (NEGATIVE) mg/dL Urine Blood Negative (NEGATIVE) Urine Nitrate Negative (NEGATIVE) Urine Bilirubin Negative (NEGATIVE) Urine Urobilinogen Normal (0.2-1.0) mg/dL Ur Leukocyte Esterase Neg (Negative) Cheikh/uL Urine WBC (Auto) 1 (0-5) /hpf Urine RBC (Auto) < 1 (0-3) /hpf Ur Squamous Epith Cells < 1 (0-5) /hpf Urine HCG, Qual Negative (NEGATIVE) Urine Opiates Screen (NEGATIVE) Urine Methadone Screen (NEGATIVE) Ur Barbiturates Screen (NEGATIVE) Ur Phencyclidine Scrn (NEGATIVE) Ur Amphetamines Screen (NEGATIVE) U Benzodiazepines Scrn (NEGATIVE) U Oth Cocaine Metabols (NEGATIVE) U Cannabinoids Screen (NEGATIVE) Serum Ketones (NEGATIVE) 03/17/17 03/17/17 03/17/17 Range/Units 16:02 16:02 16:02 WBC 4.1 L (4.8-10.8) K/uL RBC 4.86 (3.80-5.20) Mil/uL Hgb 15.7 D (11.0-16.0) g/dL Hct 46.6 (34.0-47.0) % MCV 95.9 D (81.0-99.0) fL MCH 32.3 H (27.0-31.0) pg MCHC 33.7 (33.0-37.0) g/dL RDW 14.6 H (11.5-14.5) % Plt Count 212 (130-400) K/uL MPV 9.5 (7.2-11.7) fL Neut % (Auto) 56.5 (50.0-75.0) % Lymph % (Auto) 35.0 (20.0-40.0) % [place] % (Auto) 7.4 (0.0-10.0) % Eos % (Auto) 0.4 (0.0-4.0) % Baso % (Auto) 0.7 (0.0-2.0) % Neut # 2.3 (1.8-7.0) K/uL Lymph # 1.5 (1.0-4.3) K/uL [place] # 0.3 (0.0-0.8) K/uL Eos # 0.0 (0.0-0.7) K/uL Baso # 0.0 (0.0-0.2) K/uL pO2 (30-55) mm/Hg VBG pH (7.32-7.43) VBG pCO2 (40-60) mmHg VBG HCO3 mmol/L VBG Total CO2 (22-28) mmol/L VBG O2 Sat (Calc) (40-65) % VBG Base Excess (0.0-2.0) mmol/L VBG Potassium (3.6-5.2) mmol/L A-a O2 Difference mm/Hg Glucose (65-105) mg/dl Lactate (0.7-2.1) mmol/L FiO2 % Crit Value Called To Crit Value Called By Crit Value Read Back Blood Gas Notified Time Sodium 128 L (132-148) mmol/L Potassium 3.6 (3.6-5.2) mmol/L Chloride 95 L (98-107) mmol/L Carbon Dioxide 13 L (22-30) mmol/L Anion Gap 24 H (10-20) BUN 12 (7-17) mg/dL Creatinine 0.5 L (0.7-1.2) mg/dL Est GFR ( Amer) > 60 Est GFR (Non-Af Amer) > 60 POC Glucose (mg/dL) (65-110) mg/dL Random Glucose 532 H* D (65-105) mg/dL Calcium 8.3 L (8.6-10.4) mg/dl Phosphorus (2.5-4.5) mg/dL Magnesium (1.6-2.3) mg/dL Total Bilirubin 0.5 (0.2-1.3) mg/dL AST 16 (14-36) U/L ALT 29 (9-52) U/L Alkaline Phosphatase 140 H (38-126) U/L Troponin I < 0.0120 (0.00-0.120) ng/mL Total Protein 7.2 (6.3-8.3) g/dL Albumin 4.1 (3.5-5.0) g/dL Globulin 3.1 (2.2-3.9) gm/dL Albumin/Globulin Ratio 1.3 (1.0-2.1) Venous Blood Potassium (3.6-5.2) mmol/L Urine Color (YELLOW) Urine Clarity (Clear) Urine pH (5.0-8.0) Ur Specific [place] (1.003-1.030) Urine Protein (NEGATIVE) mg/dL Urine Glucose (UA) (Normal) mg/dL Urine Ketones (NEGATIVE) mg/dL Urine Blood (NEGATIVE) Urine Nitrate (NEGATIVE) Urine Bilirubin (NEGATIVE) Urine Urobilinogen (0.2-1.0) mg/dL Ur Leukocyte Esterase (Negative) Cheikh/uL Urine WBC (Auto) (0-5) /hpf Urine RBC (Auto) (0-3) /hpf Ur Squamous Epith Cells (0-5) /hpf Urine HCG, Qual (NEGATIVE) Urine Opiates Screen Negative (NEGATIVE) Urine Methadone Screen Negative (NEGATIVE) Ur Barbiturates Screen Negative (NEGATIVE) Ur Phencyclidine Scrn Negative (NEGATIVE) Ur Amphetamines Screen Negative (NEGATIVE) U Benzodiazepines Scrn Negative (NEGATIVE) U Oth Cocaine Metabols Negative (NEGATIVE) U Cannabinoids Screen Negative (NEGATIVE) Serum Ketones Moderate (NEGATIVE) 03/17/17 Range/Units 15:39 WBC (4.8-10.8) K/uL RBC (3.80-5.20) Mil/uL Hgb (11.0-16.0) g/dL Hct (34.0-47.0) % MCV (81.0-99.0) fL MCH (27.0-31.0) pg MCHC (33.0-37.0) g/dL RDW (11.5-14.5) % Plt Count (130-400) K/uL MPV (7.2-11.7) fL Neut % (Auto) (50.0-75.0) % Lymph % (Auto) (20.0-40.0) % [place] % (Auto) (0.0-10.0) % Eos % (Auto) (0.0-4.0) % Baso % (Auto) (0.0-2.0) % Neut # (1.8-7.0) K/uL Lymph # (1.0-4.3) K/uL [place] # (0.0-0.8) K/uL Eos # (0.0-0.7) K/uL Baso # (0.0-0.2) K/uL pO2 (30-55) mm/Hg VBG pH (7.32-7.43) VBG pCO2 (40-60) mmHg VBG HCO3 mmol/L VBG Total CO2 (22-28) mmol/L VBG O2 Sat (Calc) (40-65) % VBG Base Excess (0.0-2.0) mmol/L VBG Potassium (3.6-5.2) mmol/L A-a O2 Difference mm/Hg Glucose (65-105) mg/dl Lactate (0.7-2.1) mmol/L FiO2 % Crit Value Called To Crit Value Called By Crit Value Read Back Blood Gas Notified Time Sodium (132-148) mmol/L Potassium (3.6-5.2) mmol/L Chloride (98-107) mmol/L Carbon Dioxide (22-30) mmol/L Anion Gap (10-20) BUN (7-17) mg/dL Creatinine (0.7-1.2) mg/dL Est GFR ( Amer) Est GFR (Non-Af Amer) POC Glucose (mg/dL) 434 H* (65-110) mg/dL Random Glucose (65-105) mg/dL Calcium (8.6-10.4) mg/dl Phosphorus (2.5-4.5) mg/dL Magnesium (1.6-2.3) mg/dL Total Bilirubin (0.2-1.3) mg/dL AST (14-36) U/L ALT (9-52) U/L Alkaline Phosphatase (38-126) U/L Troponin I (0.00-0.120) ng/mL Total Protein (6.3-8.3) g/dL Albumin (3.5-5.0) g/dL Globulin (2.2-3.9) gm/dL Albumin/Globulin Ratio (1.0-2.1) Venous Blood Potassium (3.6-5.2) mmol/L Urine Color (YELLOW) Urine Clarity (Clear) Urine pH (5.0-8.0) Ur Specific [place] (1.003-1.030) Urine Protein (NEGATIVE) mg/dL Urine Glucose (UA) (Normal) mg/dL Urine Ketones (NEGATIVE) mg/dL Urine Blood (NEGATIVE) Urine Nitrate (NEGATIVE) Urine Bilirubin (NEGATIVE) Urine Urobilinogen (0.2-1.0) mg/dL Ur Leukocyte Esterase (Negative) Cheikh/uL Urine WBC (Auto) (0-5) /hpf Urine RBC (Auto) (0-3) /hpf Ur Squamous Epith Cells (0-5) /hpf Urine HCG, Qual (NEGATIVE) Urine Opiates Screen (NEGATIVE) Urine Methadone Screen (NEGATIVE) Ur Barbiturates Screen (NEGATIVE) Ur Phencyclidine Scrn (NEGATIVE) Ur Amphetamines Screen (NEGATIVE) U Benzodiazepines Scrn (NEGATIVE) U Oth Cocaine Metabols (NEGATIVE) U Cannabinoids Screen (NEGATIVE) Serum Ketones (NEGATIVE) Laboratory Results - last 24 hr 03/17/17 03/17/17 03/17/17 15:39 16:02 16:02 WBC 4.1 L RBC 4.86 Hgb 15.7 D Hct 46.6 MCV 95.9 D MCH 32.3 H MCHC 33.7 RDW 14.6 H Plt Count 212 MPV 9.5 Neut % (Auto) 56.5 Lymph % (Auto) 35.0 [place] % (Auto) 7.4 Eos % (Auto) 0.4 Baso % (Auto) 0.7 Neut # 2.3 Lymph # 1.5 [place] # 0.3 Eos # 0.0 Baso # 0.0 pO2 VBG pH VBG pCO2 VBG HCO3 VBG Total CO2 VBG O2 Sat (Calc) VBG Base Excess VBG Potassium A-a O2 Difference Glucose Lactate FiO2 Crit Value Called To Crit Value Called By Crit Value Read Back Blood Gas Notified Time Sodium 128 L Potassium 3.6 Chloride 95 L Carbon Dioxide 13 L Anion Gap 24 H BUN 12 Creatinine 0.5 L Est GFR ( Amer) > 60 Est GFR (Non-Af Amer) > 60 POC Glucose (mg/dL) 434 H* Random Glucose 532 H* D Calcium 8.3 L Phosphorus Magnesium Total Bilirubin 0.5 AST 16 ALT 29 Alkaline Phosphatase 140 H Troponin I < 0.0120 Total Protein 7.2 Albumin 4.1 Globulin 3.1 Albumin/Globulin Ratio 1.3 Venous Blood Potassium Urine Color Urine Clarity Urine pH Ur Specific [place] Urine Protein Urine Glucose (UA) Urine Ketones Urine Blood Urine Nitrate Urine Bilirubin Urine Urobilinogen Ur Leukocyte Esterase Urine WBC (Auto) Urine RBC (Auto) Ur Squamous Epith Cells Urine HCG, Qual Urine Opiates Screen Urine Methadone Screen Ur Barbiturates Screen Ur Phencyclidine Scrn Ur Amphetamines Screen U Benzodiazepines Scrn U Oth Cocaine Metabols U Cannabinoids Screen Serum Ketones Moderate 03/17/17 03/17/17 03/17/17 16:02 16:04 16:04 WBC RBC Hgb Hct MCV MCH MCHC RDW Plt Count MPV Neut % (Auto) Lymph % (Auto) [place] % (Auto) Eos % (Auto) Baso % (Auto) Neut # Lymph # [place] # Eos # Baso # pO2 VBG pH VBG pCO2 VBG HCO3 VBG Total CO2 VBG O2 Sat (Calc) VBG Base Excess VBG Potassium A-a O2 Difference Glucose Lactate FiO2 Crit Value Called To Crit Value Called By Crit Value Read Back Blood Gas Notified Time Sodium Potassium Chloride Carbon Dioxide Anion Gap BUN Creatinine Est GFR ( Amer) Est GFR (Non-Af Amer) POC Glucose (mg/dL) Random Glucose Calcium Phosphorus Magnesium Total Bilirubin AST ALT Alkaline Phosphatase Troponin I Total Protein Albumin Globulin Albumin/Globulin Ratio Venous Blood Potassium Urine Color Straw Urine Clarity Clear Urine pH 5.0 Ur Specific [place] 1.026 Urine Protein Negative Urine Glucose (UA) 3+ H Urine Ketones 2+ H Urine Blood Negative Urine Nitrate Negative Urine Bilirubin Negative Urine Urobilinogen Normal Ur Leukocyte Esterase Neg Urine WBC (Auto) 1 Urine RBC (Auto) < 1 Ur Squamous Epith Cells < 1 Urine HCG, Qual Negative Urine Opiates Screen Negative Urine Methadone Screen Negative Ur Barbiturates Screen Negative Ur Phencyclidine Scrn Negative Ur Amphetamines Screen Negative U Benzodiazepines Scrn Negative U Oth Cocaine Metabols Negative U Cannabinoids Screen Negative Serum Ketones 03/17/17 03/17/17 03/17/17 16:22 17:26 18:04 WBC RBC Hgb Hct MCV MCH MCHC RDW Plt Count MPV Neut % (Auto) Lymph % (Auto) [place] % (Auto) Eos % (Auto) Baso % (Auto) Neut # Lymph # [place] # Eos # Baso # pO2 63 H VBG pH 7.25 L VBG pCO2 24 L VBG HCO3 13.0 VBG Total CO2 11.2 L VBG O2 Sat (Calc) 92.7 H VBG Base Excess -14.9 L VBG Potassium 3.0 L A-a O2 Difference 57.0 Glucose 463 H* Lactate 0.7 FiO2 21.0 Crit Value Called To Tejal Crit Value Called By Stevenson marcelo Crit Value Read Back Y Blood Gas Notified Time 1628 Sodium 132.0 Potassium Chloride 103.0 Carbon Dioxide Anion Gap BUN Creatinine Est GFR ( Amer) Est GFR (Non-Af Amer) POC Glucose (mg/dL) 316 H 245 H Random Glucose Calcium Phosphorus Magnesium Total Bilirubin AST ALT Alkaline Phosphatase Troponin I Total Protein Albumin Globulin Albumin/Globulin Ratio Venous Blood Potassium 3.0 L Urine Color Urine Clarity Urine pH Ur Specific [place] Urine Protein Urine Glucose (UA) Urine Ketones Urine Blood Urine Nitrate Urine Bilirubin Urine Urobilinogen Ur Leukocyte Esterase Urine WBC (Auto) Urine RBC (Auto) Ur Squamous Epith Cells Urine HCG, Qual Urine Opiates Screen Urine Methadone Screen Ur Barbiturates Screen Ur Phencyclidine Scrn Ur Amphetamines Screen U Benzodiazepines Scrn U Oth Cocaine Metabols U Cannabinoids Screen Serum Ketones 03/17/17 03/17/17 03/17/17 19:34 20:17 20:51 WBC RBC Hgb Hct MCV MCH MCHC RDW Plt Count MPV Neut % (Auto) Lymph % (Auto) [place] % (Auto) Eos % (Auto) Baso % (Auto) Neut # Lymph # [place] # Eos # Baso # pO2 VBG pH VBG pCO2 VBG HCO3 VBG Total CO2 VBG O2 Sat (Calc) VBG Base Excess VBG Potassium A-a O2 Difference Glucose Lactate FiO2 Crit Value Called To Crit Value Called By Crit Value Read Back Blood Gas Notified Time Sodium 132 Potassium 2.7 L Chloride 106 Carbon Dioxide 17 L Anion Gap 12 BUN 9 Creatinine 0.3 L Est GFR ( Amer) > 60 Est GFR (Non-Af Amer) > 60 POC Glucose (mg/dL) 165 H 126 H Random Glucose 113 H Calcium 6.5 L Phosphorus Magnesium Total Bilirubin AST ALT Alkaline Phosphatase Troponin I Total Protein Albumin Globulin Albumin/Globulin Ratio Venous Blood Potassium Urine Color Urine Clarity Urine pH Ur Specific [place] Urine Protein Urine Glucose (UA) Urine Ketones Urine Blood Urine Nitrate Urine Bilirubin Urine Urobilinogen Ur Leukocyte Esterase Urine WBC (Auto) Urine RBC (Auto) Ur Squamous Epith Cells Urine HCG, Qual Urine Opiates Screen Urine Methadone Screen Ur Barbiturates Screen Ur Phencyclidine Scrn Ur Amphetamines Screen U Benzodiazepines Scrn U Oth Cocaine Metabols U Cannabinoids Screen Serum Ketones 03/17/17 03/17/17 03/17/17 21:04 22:05 23:07 WBC RBC Hgb Hct MCV MCH MCHC RDW Plt Count MPV Neut % (Auto) Lymph % (Auto) [place] % (Auto) Eos % (Auto) Baso % (Auto) Neut # Lymph # [place] # Eos # Baso # pO2 VBG pH VBG pCO2 VBG HCO3 VBG Total CO2 VBG O2 Sat (Calc) VBG Base Excess VBG Potassium A-a O2 Difference Glucose Lactate FiO2 Crit Value Called To Crit Value Called By Crit Value Read Back Blood Gas Notified Time Sodium Potassium Chloride Carbon Dioxide Anion Gap BUN Creatinine Est GFR ( Amer) Est GFR (Non-Af Amer) POC Glucose (mg/dL) 136 H 172 H 166 H Random Glucose Calcium Phosphorus Magnesium Total Bilirubin AST ALT Alkaline Phosphatase Troponin I Total Protein Albumin Globulin Albumin/Globulin Ratio Venous Blood Potassium Urine Color Urine Clarity Urine pH Ur Specific [place] Urine Protein Urine Glucose (UA) Urine Ketones Urine Blood Urine Nitrate Urine Bilirubin Urine Urobilinogen Ur Leukocyte Esterase Urine WBC (Auto) Urine RBC (Auto) Ur Squamous Epith Cells Urine HCG, Qual Urine Opiates Screen Urine Methadone Screen Ur Barbiturates Screen Ur Phencyclidine Scrn Ur Amphetamines Screen U Benzodiazepines Scrn U Oth Cocaine Metabols U Cannabinoids Screen Serum Ketones 03/17/17 03/18/17 03/18/17 23:57 00:50 01:02 WBC RBC Hgb Hct MCV MCH MCHC RDW Plt Count MPV Neut % (Auto) Lymph % (Auto) [place] % (Auto) Eos % (Auto) Baso % (Auto) Neut # Lymph # [place] # Eos # Baso # pO2 VBG pH VBG pCO2 VBG HCO3 VBG Total CO2 VBG O2 Sat (Calc) VBG Base Excess VBG Potassium A-a O2 Difference Glucose Lactate FiO2 Crit Value Called To Crit Value Called By Crit Value Read Back Blood Gas Notified Time Sodium 134 Potassium 2.9 L Chloride 108 H Carbon Dioxide 20 L Anion Gap 9 L BUN 7 Creatinine 0.3 L Est GFR ( Amer) > 60 Est GFR (Non-Af Amer) > 60 POC Glucose (mg/dL) 133 H 111 H Random Glucose 103 Calcium 7.1 L Phosphorus Magnesium Total Bilirubin AST ALT Alkaline Phosphatase Troponin I Total Protein Albumin Globulin Albumin/Globulin Ratio Venous Blood Potassium Urine Color Urine Clarity Urine pH Ur Specific [place] Urine Protein Urine Glucose (UA) Urine Ketones Urine Blood Urine Nitrate Urine Bilirubin Urine Urobilinogen Ur Leukocyte Esterase Urine WBC (Auto) Urine RBC (Auto) Ur Squamous Epith Cells Urine HCG, Qual Urine Opiates Screen Urine Methadone Screen Ur Barbiturates Screen Ur Phencyclidine Scrn Ur Amphetamines Screen U Benzodiazepines Scrn U Oth Cocaine Metabols U Cannabinoids Screen Serum Ketones 03/18/17 03/18/17 03/18/17 03:11 04:06 05:00 WBC RBC Hgb Hct MCV MCH MCHC RDW Plt Count MPV Neut % (Auto) Lymph % (Auto) [place] % (Auto) Eos % (Auto) Baso % (Auto) Neut # Lymph # [place] # Eos # Baso # pO2 VBG pH VBG pCO2 VBG HCO3 VBG Total CO2 VBG O2 Sat (Calc) VBG Base Excess VBG Potassium A-a O2 Difference Glucose Lactate FiO2 Crit Value Called To Crit Value Called By Crit Value Read Back Blood Gas Notified Time Sodium Potassium Chloride Carbon Dioxide Anion Gap BUN Creatinine Est GFR ( Amer) Est GFR (Non-Af Amer) POC Glucose (mg/dL) 315 H 296 H 237 H Random Glucose Calcium Phosphorus Magnesium Total Bilirubin AST ALT Alkaline Phosphatase Troponin I Total Protein Albumin Globulin Albumin/Globulin Ratio Venous Blood Potassium Urine Color Urine Clarity Urine pH Ur Specific [place] Urine Protein Urine Glucose (UA) Urine Ketones Urine Blood Urine Nitrate Urine Bilirubin Urine Urobilinogen Ur Leukocyte Esterase Urine WBC (Auto) Urine RBC (Auto) Ur Squamous Epith Cells Urine HCG, Qual Urine Opiates Screen Urine Methadone Screen Ur Barbiturates Screen Ur Phencyclidine Scrn Ur Amphetamines Screen U Benzodiazepines Scrn U Oth Cocaine Metabols U Cannabinoids Screen Serum Ketones 03/18/17 03/18/17 03/18/17 05:58 06:17 06:17 WBC 4.8 RBC 3.65 L Hgb 12.0 D Hct 33.9 L MCV 93.0 D MCH 32.8 H MCHC 35.2 RDW 14.5 Plt Count 153 MPV 9.0 Neut % (Auto) 53.0 Lymph % (Auto) 37.4 [place] % (Auto) 7.9 Eos % (Auto) 1.4 Baso % (Auto) 0.3 Neut # 2.5 Lymph # 1.8 [place] # 0.4 Eos # 0.1 Baso # 0.0 pO2 VBG pH VBG pCO2 VBG HCO3 VBG Total CO2 VBG O2 Sat (Calc) VBG Base Excess VBG Potassium A-a O2 Difference Glucose Lactate FiO2 Crit Value Called To Crit Value Called By Crit Value Read Back Blood Gas Notified Time Sodium 136 Potassium 3.0 L Chloride 111 H Carbon Dioxide 18 L Anion Gap 10 BUN 9 Creatinine 0.3 L Est GFR ( Amer) > 60 Est GFR (Non-Af Amer) > 60 POC Glucose (mg/dL) 183 H Random Glucose 127 H Calcium 7.4 L Phosphorus 2.8 Magnesium 1.7 Total Bilirubin AST ALT Alkaline Phosphatase Troponin I Total Protein Albumin Globulin Albumin/Globulin Ratio Venous Blood Potassium Urine Color Urine Clarity Urine pH Ur Specific [place] Urine Protein Urine Glucose (UA) Urine Ketones Urine Blood Urine Nitrate Urine Bilirubin Urine Urobilinogen Ur Leukocyte Esterase Urine WBC (Auto) Urine RBC (Auto) Ur Squamous Epith Cells Urine HCG, Qual Urine Opiates Screen Urine Methadone Screen Ur Barbiturates Screen Ur Phencyclidine Scrn Ur Amphetamines Screen U Benzodiazepines Scrn U Oth Cocaine Metabols U Cannabinoids Screen Serum Ketones 03/18/17 07:37 WBC RBC Hgb Hct MCV MCH MCHC RDW Plt Count MPV Neut % (Auto) Lymph % (Auto) [place] % (Auto) Eos % (Auto) Baso % (Auto) Neut # Lymph # [place] # Eos # Baso # pO2 VBG pH VBG pCO2 VBG HCO3 VBG Total CO2 VBG O2 Sat (Calc) VBG Base Excess VBG Potassium A-a O2 Difference Glucose Lactate FiO2 Crit Value Called To Crit Value Called By Crit Value Read Back Blood Gas Notified Time Sodium Potassium Chloride Carbon Dioxide Anion Gap BUN Creatinine Est GFR ( Amer) Est GFR (Non-Af Amer) POC Glucose (mg/dL) 111 H Random Glucose Calcium Phosphorus Magnesium Total Bilirubin AST ALT Alkaline Phosphatase Troponin I Total Protein Albumin Globulin Albumin/Globulin Ratio Venous Blood Potassium Urine Color Urine Clarity Urine pH Ur Specific [place] Urine Protein Urine Glucose (UA) Urine Ketones Urine Blood Urine Nitrate Urine Bilirubin Urine Urobilinogen Ur Leukocyte Esterase Urine WBC (Auto) Urine RBC (Auto) Ur Squamous Epith Cells Urine HCG, Qual Urine Opiates Screen Urine Methadone Screen Ur Barbiturates Screen Ur Phencyclidine Scrn Ur Amphetamines Screen U Benzodiazepines Scrn U Oth Cocaine Metabols U Cannabinoids Screen Serum Ketones EKG/Cardiology Studies: Cardiology / EKG Studies 03/17/17 15:49 ELECTROCARDIOGRAM Stat Comment: Mode Of Transportation: BED Reason For Exam: chest pain Fingerstick Blood Sugar Results: 111 Review of Systems - Constitutional Constitutional: absent: Fever, Chills, Sweats, Weakness - EENT Eyes: absent: Blurred Vision, Change in Vision Ears: absent: Dizziness - Cardiovascular Cardiovascular: absent: Chest Pain, Chest Pain at Rest, Diaphoresis, Dyspnea, Lightheadedness, Palpitations - Respiratory Respiratory: absent: Dyspnea, Dyspnea on Exertion, Pain on Inspiration - Gastrointestinal Gastrointestinal: absent: Abdominal Pain, Constipation, Diarrhea, Nausea, Vomiting - Genitourinary Genitourinary: absent: Dysuria, Urinary Frequency - Musculoskeletal Musculoskeletal: absent: Numbness, Tingling - Neurological Neurological: Weakness. absent: Dizziness, Headaches, Tingling - Endocrine Endocrine: absent: Fatigue, Palpitations Critical Care Progress Note - Nutrition Nutrition: Nutrition Category Date Time Status Consistent Carbohydrate [DIET] Diets 03/18/17 Lunch Active Assessment/Plan - Assessment and Plan (Free Text) Assessment: Patient is a 41 year old female with past medical history of uncontrolled diabetes and hypokalemia, who presents to the ED yesterday with abdominal pain and nausea, who was noted to be in DKA on admission. Patient was admitted to the ICU Today: Plan: Transfer to Med-Surg floor Plan: Neuro: Alert, awake and oriented Pulm: No acute issues Cardio: No acute issues GI: NPO on admission Renal: Hypokalemia * Repleted appropriately Endo: Diabetic ketoacidodis, Hx of Insulin dependent diabetes * Accuchecks * Lantus 10 units HS * ISS high dose ID: No acute issues Prophylaxis: DVT: SCDs and ambulating GI: Not currently indicated
--- NOTE | 2017-03-18 09:34 | CP.PCM.PN ---
Subjective - Date & Time of Evaluation Date of Evaluation: 03/18/17 Time of Evaluation: 09:15 - Subjective Subjective: Patient was seen and examined by me. She reports feeling much less fatigued today and less thirsty. Overnight she was on an insulin ggt. No on PO diet as well as Lantus and SSI The patient from what I understand has not had insulin in almost 6 months. Supposedly due to cost. Hopefully can come out of ICU today. Objective - Vital Signs/Intake and Output Vital Signs (last 24 hours): Temp Pulse Resp BP Pulse Ox 98 F 79 17 81/55 L 100 03/18/17 07:51 03/18/17 08:00 03/18/17 08:00 03/18/17 07:50 03/18/17 08:00 Intake and Output: 03/18/17 03/18/17 06:59 18:59 Intake Total 2020 220 Output Total 0 1100 Balance 2020 -880 - Medications Medications: Current Medications Insulin Aspart (Novolog) 0 unit SC ACHS AUNG PRN Reason: Protocol Last Admin: 03/18/17 07:38 Dose: Not Given Insulin Glargine (Lantus) 10 unit SC HS AUNG - Labs Labs: 03/18/17 06:17 03/18/17 06:17 - Constitutional Appears: Well, Non-toxic, No Acute Distress - Head Exam Head Exam: NORMAL INSPECTION, NORMOCEPHALIC - Eye Exam Eye Exam: EOMI, Normal appearance - ENT Exam ENT Exam: Mucous Membranes Moist - Respiratory Exam Respiratory Exam: Clear to Ausculation Bilateral, NORMAL BREATHING PATTERN - GI/Abdominal Exam GI & Abdominal Exam: Soft, Normal Bowel Sounds. absent: Distended, Firm, Guarding, Rigid, Tenderness - Neurological Exam Neurological Exam: Alert, Awake, Oriented x3 Neuro motor strength exam: Left Upper Extremity: 5, Right Upper Extremity: 5, Left Lower Extremity: 5, Right Lower Extremity: 5 - Psychiatric Exam Psychiatric exam: Normal Affect, Normal Mood - Skin Skin Exam: Normal Color, Warm Assessment and Plan - Assessment and Plan (Free Text) Assessment: DKA - Has not had insulin in 6 months, supposedly due to cost. 03/18: Now off of insulin ggt as well as IVF and K replacement. The patient tolerated regular diet Also the patient is now on lantus and SSI. The anion gap is closed now. We will need a good furniture lumber production worker later to explain to the patient she can get refills of her insulin at the [facility] for free or a greatly reduced cost. Prophylactic measure On SCDs
[2017-03-18] MEDS ORDERED: Influenza Vaccine 60 mcg/0.5 mL SYR (4YR UP) IM ONE (10:43)
--- NOTE | 2017-03-18 15:13 | CP.PCM.HP ---
<Cindy Carney - Last Filed: 03/18/17 15:32> History of Present Illness - History of Present Illness History of Present Illness: ICU H & P CC: Abdominal Pain and Nausea HPI: Patient is a 41 year old female with past medical history of uncontrolled diabetes and hypokalemia, who presents to the ED yesterday with abdominal pain and nausea that started 3 days ago. Patient describes her symptoms as an 8/10 abdominal pain without radiation. Patient denies fever, chills, chest pain, palpitations, SOB, urinary symptoms, vomiting but does admits to nausea. Patient was noted to be in DKA on admission. 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 Lives with daughter. Denies current or former use of tobacco, ETOH and illicit drugs Present on Admission - Present on Admission Any Indicators Present on Admission: No Review of Systems - Constitutional Constitutional: Weakness. absent: Chills, Fatigue, Headache - EENT Eyes: absent: Blurred Vision, Change in Vision Ears: absent: Dizziness - Cardiovascular Cardiovascular: absent: Chest Pain, Dyspnea, Edema, Lightheadedness, Palpitations - Respiratory Respiratory: absent: Dyspnea, Wheezing - Gastrointestinal Gastrointestinal: Abdominal Pain, Nausea. absent: Diarrhea, Vomiting - Genitourinary Genitourinary: absent: Dysuria, Pyuria, Urinary Frequency - Musculoskeletal Musculoskeletal: absent: Numbness, Tingling - Neurological Neurological: Weakness. absent: Dizziness, Headaches, Syncope - Endocrine Endocrine: absent: Fatigue, Palpitations Past Patient History - Infectious Disease Hx of Infectious Diseases: None - Past Medical History & Family History Past Medical History?: Yes - Past Social History Smoking Status: Never Smoked - CARDIAC Hx Cardiac Disorders: No - PULMONARY Hx Respiratory Disorders: No - NEUROLOGICAL Hx Neurological Disorder: No - HEENT Hx HEENT Problems: No - RENAL Hx Chronic Kidney Disease: No - ENDOCRINE/METABOLIC Hx Endocrine Disorders: Yes Hx Diabetes Mellitus Type 2: Yes (not on meds) - HEMATOLOGICAL/ONCOLOGICAL Hx Blood Disorders: No - INTEGUMENTARY Hx Dermatological Problems: No - MUSCULOSKELETAL/RHEUMATOLOGICAL Hx Musculoskeletal Disorders: No Hx Falls: No - GASTROINTESTINAL Hx Gastrointestinal Disorders: No - GENITOURINARY/GYNECOLOGICAL Hx Genitourinary Disorders: No - PSYCHIATRIC Hx Substance Use: No - SURGICAL HISTORY Hx Surgeries: Yes Hx Section: Yes (1995 1997 2005) - ANESTHESIA Hx Anesthesia: Yes Hx Anesthesia Reactions: No Hx Malignant Hyperthermia: No Meds Allergies/Adverse Reactions: Allergies Allergy/AdvReac Type Severity Reaction Status Date / Time No Known Allergies Allergy Verified 03/17/17 15:34 Physical Exam - Constitutional Appears: No Acute Distress - Head Exam Head Exam: ATRAUMATIC, NORMAL INSPECTION - Eye Exam Eye Exam: EOMI - ENT Exam ENT Exam: Mucous Membranes Dry - Respiratory Exam Respiratory Exam: Clear to Auscultation Bilateral, NORMAL BREATHING PATTERN - Cardiovascular Exam Cardiovascular Exam: REGULAR RHYTHM, +S1, +S2 - GI/Abdominal Exam GI & Abdominal Exam: Normal Bowel Sounds, Soft. absent: Tenderness - Extremities Exam Extremities exam: Positive for: normal inspection. Negative for: calf tenderness, pedal edema, tenderness - Neurological Exam Neurological exam: Alert, Oriented x3 - Psychiatric Exam Psychiatric exam: Normal Affect, Normal Mood - Skin Skin Exam: Normal Color, Warm Results - Vital Signs Recent Vital Signs: Last Vital Signs Temp 98.2 F 03/18/17 12:00 Pulse 68 03/18/17 14:16 Resp 18 03/18/17 14:16 BP 98/64 L 03/18/17 12:50 Pulse Ox 99 03/18/17 14:16 - Labs Result Diagrams: 03/18/17 06:17 03/18/17 06:17 Labs: Laboratory Results - last 24 hr 03/17/17 03/17/17 03/17/17 15:39 16:02 16:02 WBC 4.1 L RBC 4.86 Hgb 15.7 D Hct 46.6 MCV 95.9 D MCH 32.3 H MCHC 33.7 RDW 14.6 H Plt Count 212 MPV 9.5 Neut % (Auto) 56.5 Lymph % (Auto) 35.0 [place] % (Auto) 7.4 Eos % (Auto) 0.4 Baso % (Auto) 0.7 Neut # 2.3 Lymph # 1.5 [place] # 0.3 Eos # 0.0 Baso # 0.0 pO2 VBG pH VBG pCO2 VBG HCO3 VBG Total CO2 VBG O2 Sat (Calc) VBG Base Excess VBG Potassium A-a O2 Difference Glucose Lactate FiO2 Crit Value Called To Crit Value Called By Crit Value Read Back Blood Gas Notified Time Sodium 128 L Potassium 3.6 Chloride 95 L Carbon Dioxide 13 L Anion Gap 24 H BUN 12 Creatinine 0.5 L Est GFR ( Amer) > 60 Est GFR (Non-Af Amer) > 60 POC Glucose (mg/dL) 434 H* Random Glucose 532 H* D Calcium 8.3 L Phosphorus Magnesium Total Bilirubin 0.5 AST 16 ALT 29 Alkaline Phosphatase 140 H Troponin I < 0.0120 Total Protein 7.2 Albumin 4.1 Globulin 3.1 Albumin/Globulin Ratio 1.3 Venous Blood Potassium Urine Color Urine Clarity Urine pH Ur Specific Echo Urine Protein Urine Glucose (UA) Urine Ketones Urine Blood Urine Nitrate Urine Bilirubin Urine Urobilinogen Ur Leukocyte Esterase Urine WBC (Auto) Urine RBC (Auto) Ur Squamous Epith Cells Urine HCG, Qual Urine Opiates Screen Urine Methadone Screen Ur Barbiturates Screen Ur Phencyclidine Scrn Ur Amphetamines Screen U Benzodiazepines Scrn U Oth Cocaine Metabols U Cannabinoids Screen Serum Ketones Moderate 03/17/17 03/17/17 03/17/17 16:02 16:04 16:04 WBC RBC Hgb Hct MCV MCH MCHC RDW Plt Count MPV Neut % (Auto) Lymph % (Auto) [place] % (Auto) Eos % (Auto) Baso % (Auto) Neut # Lymph # [place] # Eos # Baso # pO2 VBG pH VBG pCO2 VBG HCO3 VBG Total CO2 VBG O2 Sat (Calc) VBG Base Excess VBG Potassium A-a O2 Difference Glucose Lactate FiO2 Crit Value Called To Crit Value Called By Crit Value Read Back Blood Gas Notified Time Sodium Potassium Chloride Carbon Dioxide Anion Gap BUN Creatinine Est GFR ( Amer) Est GFR (Non-Af Amer) POC Glucose (mg/dL) Random Glucose Calcium Phosphorus Magnesium Total Bilirubin AST ALT Alkaline Phosphatase Troponin I Total Protein Albumin Globulin Albumin/Globulin Ratio Venous Blood Potassium Urine Color Straw Urine Clarity Clear Urine pH 5.0 Ur Specific Echo 1.026 Urine Protein Negative Urine Glucose (UA) 3+ H Urine Ketones 2+ H Urine Blood Negative Urine Nitrate Negative Urine Bilirubin Negative Urine Urobilinogen Normal Ur Leukocyte Esterase Neg Urine WBC (Auto) 1 Urine RBC (Auto) < 1 Ur Squamous Epith Cells < 1 Urine HCG, Qual Negative Urine Opiates Screen Negative Urine Methadone Screen Negative Ur Barbiturates Screen Negative Ur Phencyclidine Scrn Negative Ur Amphetamines Screen Negative U Benzodiazepines Scrn Negative U Oth Cocaine Metabols Negative U Cannabinoids Screen Negative Serum Ketones 03/17/17 03/17/17 03/17/17 16:22 17:26 18:04 WBC RBC Hgb Hct MCV MCH MCHC RDW Plt Count MPV Neut % (Auto) Lymph % (Auto) [place] % (Auto) Eos % (Auto) Baso % (Auto) Neut # Lymph # [place] # Eos # Baso # pO2 63 H VBG pH 7.25 L VBG pCO2 24 L VBG HCO3 13.0 VBG Total CO2 11.2 L VBG O2 Sat (Calc) 92.7 H VBG Base Excess -14.9 L VBG Potassium 3.0 L A-a O2 Difference 57.0 Glucose 463 H* Lactate 0.7 FiO2 21.0 Crit Value Called To Tejal Crit Value Called By Stevenson business continuity management director Crit Value Read Back Y Blood Gas Notified Time 1628 Sodium 132.0 Potassium Chloride 103.0 Carbon Dioxide Anion Gap BUN Creatinine Est GFR ( Amer) Est GFR (Non-Af Amer) POC Glucose (mg/dL) 316 H 245 H Random Glucose Calcium Phosphorus Magnesium Total Bilirubin AST ALT Alkaline Phosphatase Troponin I Total Protein Albumin Globulin Albumin/Globulin Ratio Venous Blood Potassium 3.0 L Urine Color Urine Clarity Urine pH Ur Specific Echo Urine Protein Urine Glucose (UA) Urine Ketones Urine Blood Urine Nitrate Urine Bilirubin Urine Urobilinogen Ur Leukocyte Esterase Urine WBC (Auto) Urine RBC (Auto) Ur Squamous Epith Cells Urine HCG, Qual Urine Opiates Screen Urine Methadone Screen Ur Barbiturates Screen Ur Phencyclidine Scrn Ur Amphetamines Screen U Benzodiazepines Scrn U Oth Cocaine Metabols U Cannabinoids Screen Serum Ketones 03/17/17 03/17/17 03/17/17 19:34 20:17 20:51 WBC RBC Hgb Hct MCV MCH MCHC RDW Plt Count MPV Neut % (Auto) Lymph % (Auto) [place] % (Auto) Eos % (Auto) Baso % (Auto) Neut # Lymph # [place] # Eos # Baso # pO2 VBG pH VBG pCO2 VBG HCO3 VBG Total CO2 VBG O2 Sat (Calc) VBG Base Excess VBG Potassium A-a O2 Difference Glucose Lactate FiO2 Crit Value Called To Crit Value Called By Crit Value Read Back Blood Gas Notified Time Sodium 132 Potassium 2.7 L Chloride 106 Carbon Dioxide 17 L Anion Gap 12 BUN 9 Creatinine 0.3 L Est GFR ( Amer) > 60 Est GFR (Non-Af Amer) > 60 POC Glucose (mg/dL) 165 H 126 H Random Glucose 113 H Calcium 6.5 L Phosphorus Magnesium Total Bilirubin AST ALT Alkaline Phosphatase Troponin I Total Protein Albumin Globulin Albumin/Globulin Ratio Venous Blood Potassium Urine Color Urine Clarity Urine pH Ur Specific Echo Urine Protein Urine Glucose (UA) Urine Ketones Urine Blood Urine Nitrate Urine Bilirubin Urine Urobilinogen Ur Leukocyte Esterase Urine WBC (Auto) Urine RBC (Auto) Ur Squamous Epith Cells Urine HCG, Qual Urine Opiates Screen Urine Methadone Screen Ur Barbiturates Screen Ur Phencyclidine Scrn Ur Amphetamines Screen U Benzodiazepines Scrn U Oth Cocaine Metabols U Cannabinoids Screen Serum Ketones 03/17/17 03/17/17 03/17/17 21:04 22:05 23:07 WBC RBC Hgb Hct MCV MCH MCHC RDW Plt Count MPV Neut % (Auto) Lymph % (Auto) [place] % (Auto) Eos % (Auto) Baso % (Auto) Neut # Lymph # [place] # Eos # Baso # pO2 VBG pH VBG pCO2 VBG HCO3 VBG Total CO2 VBG O2 Sat (Calc) VBG Base Excess VBG Potassium A-a O2 Difference Glucose Lactate FiO2 Crit Value Called To Crit Value Called By Crit Value Read Back Blood Gas Notified Time Sodium Potassium Chloride Carbon Dioxide Anion Gap BUN Creatinine Est GFR ( Amer) Est GFR (Non-Af Amer) POC Glucose (mg/dL) 136 H 172 H 166 H Random Glucose Calcium Phosphorus Magnesium Total Bilirubin AST ALT Alkaline Phosphatase Troponin I Total Protein Albumin Globulin Albumin/Globulin Ratio Venous Blood Potassium Urine Color Urine Clarity Urine pH Ur Specific Echo Urine Protein Urine Glucose (UA) Urine Ketones Urine Blood Urine Nitrate Urine Bilirubin Urine Urobilinogen Ur Leukocyte Esterase Urine WBC (Auto) Urine RBC (Auto) Ur Squamous Epith Cells Urine HCG, Qual Urine Opiates Screen Urine Methadone Screen Ur Barbiturates Screen Ur Phencyclidine Scrn Ur Amphetamines Screen U Benzodiazepines Scrn U Oth Cocaine Metabols U Cannabinoids Screen Serum Ketones 10/05/17 10/06/17 10/06/17 23:57 00:50 01:02 WBC RBC Hgb Hct MCV MCH MCHC RDW Plt Count MPV Neut % (Auto) Lymph % (Auto) [place] % (Auto) Eos % (Auto) Baso % (Auto) Neut # Lymph # [place] # Eos # Baso # pO2 VBG pH VBG pCO2 VBG HCO3 VBG Total CO2 VBG O2 Sat (Calc) VBG Base Excess VBG Potassium A-a O2 Difference Glucose Lactate FiO2 Crit Value Called To Crit Value Called By Crit Value Read Back Blood Gas Notified Time Sodium 134 Potassium 2.9 L Chloride 108 H Carbon Dioxide 20 L Anion Gap 9 L BUN 7 Creatinine 0.3 L Est GFR ( Amer) > 60 Est GFR (Non-Af Amer) > 60 POC Glucose (mg/dL) 133 H 111 H Random Glucose 103 Calcium 7.1 L Phosphorus Magnesium Total Bilirubin AST ALT Alkaline Phosphatase Troponin I Total Protein Albumin Globulin Albumin/Globulin Ratio Venous Blood Potassium Urine Color Urine Clarity Urine pH Ur Specific Echo Urine Protein Urine Glucose (UA) Urine Ketones Urine Blood Urine Nitrate Urine Bilirubin Urine Urobilinogen Ur Leukocyte Esterase Urine WBC (Auto) Urine RBC (Auto) Ur Squamous Epith Cells Urine HCG, Qual Urine Opiates Screen Urine Methadone Screen Ur Barbiturates Screen Ur Phencyclidine Scrn Ur Amphetamines Screen U Benzodiazepines Scrn U Oth Cocaine Metabols U Cannabinoids Screen Serum Ketones 03/18/17 03/18/17 03/18/17 03:11 04:06 05:00 WBC RBC Hgb Hct MCV MCH MCHC RDW Plt Count MPV Neut % (Auto) Lymph % (Auto) [place] % (Auto) Eos % (Auto) Baso % (Auto) Neut # Lymph # [place] # Eos # Baso # pO2 VBG pH VBG pCO2 VBG HCO3 VBG Total CO2 VBG O2 Sat (Calc) VBG Base Excess VBG Potassium A-a O2 Difference Glucose Lactate FiO2 Crit Value Called To Crit Value Called By Crit Value Read Back Blood Gas Notified Time Sodium Potassium Chloride Carbon Dioxide Anion Gap BUN Creatinine Est GFR ( Amer) Est GFR (Non-Af Amer) POC Glucose (mg/dL) 315 H 296 H 237 H Random Glucose Calcium Phosphorus Magnesium Total Bilirubin AST ALT Alkaline Phosphatase Troponin I Total Protein Albumin Globulin Albumin/Globulin Ratio Venous Blood Potassium Urine Color Urine Clarity Urine pH Ur Specific Echo Urine Protein Urine Glucose (UA) Urine Ketones Urine Blood Urine Nitrate Urine Bilirubin Urine Urobilinogen Ur Leukocyte Esterase Urine WBC (Auto) Urine RBC (Auto) Ur Squamous Epith Cells Urine HCG, Qual Urine Opiates Screen Urine Methadone Screen Ur Barbiturates Screen Ur Phencyclidine Scrn Ur Amphetamines Screen U Benzodiazepines Scrn U Oth Cocaine Metabols U Cannabinoids Screen Serum Ketones 03/18/17 03/18/17 03/18/17 05:58 06:17 06:17 WBC 4.8 RBC 3.65 L Hgb 12.0 D Hct 33.9 L MCV 93.0 D MCH 32.8 H MCHC 35.2 RDW 14.5 Plt Count 153 MPV 9.0 Neut % (Auto) 53.0 Lymph % (Auto) 37.4 [place] % (Auto) 7.9 Eos % (Auto) 1.4 Baso % (Auto) 0.3 Neut # 2.5 Lymph # 1.8 [place] # 0.4 Eos # 0.1 Baso # 0.0 pO2 VBG pH VBG pCO2 VBG HCO3 VBG Total CO2 VBG O2 Sat (Calc) VBG Base Excess VBG Potassium A-a O2 Difference Glucose Lactate FiO2 Crit Value Called To Crit Value Called By Crit Value Read Back Blood Gas Notified Time Sodium 136 Potassium 3.0 L Chloride 111 H Carbon Dioxide 18 L Anion Gap 10 BUN 9 Creatinine 0.3 L Est GFR ( Amer) > 60 Est GFR (Non-Af Amer) > 60 POC Glucose (mg/dL) 183 H Random Glucose 127 H Calcium 7.4 L Phosphorus 2.8 Magnesium 1.7 Total Bilirubin AST ALT Alkaline Phosphatase Troponin I Total Protein Albumin Globulin Albumin/Globulin Ratio Venous Blood Potassium Urine Color Urine Clarity Urine pH Ur Specific Echo Urine Protein Urine Glucose (UA) Urine Ketones Urine Blood Urine Nitrate Urine Bilirubin Urine Urobilinogen Ur Leukocyte Esterase Urine WBC (Auto) Urine RBC (Auto) Ur Squamous Epith Cells Urine HCG, Qual Urine Opiates Screen Urine Methadone Screen Ur Barbiturates Screen Ur Phencyclidine Scrn Ur Amphetamines Screen U Benzodiazepines Scrn U Oth Cocaine Metabols U Cannabinoids Screen Serum Ketones 03/18/17 03/18/17 07:37 11:47 WBC RBC Hgb Hct MCV MCH MCHC RDW Plt Count MPV Neut % (Auto) Lymph % (Auto) [place] % (Auto) Eos % (Auto) Baso % (Auto) Neut # Lymph # [place] # Eos # Baso # pO2 VBG pH VBG pCO2 VBG HCO3 VBG Total CO2 VBG O2 Sat (Calc) VBG Base Excess VBG Potassium A-a O2 Difference Glucose Lactate FiO2 Crit Value Called To Crit Value Called By Crit Value Read Back Blood Gas Notified Time Sodium Potassium Chloride Carbon Dioxide Anion Gap BUN Creatinine Est GFR ( Amer) Est GFR (Non-Af Amer) POC Glucose (mg/dL) 111 H 394 H Random Glucose Calcium Phosphorus Magnesium Total Bilirubin AST ALT Alkaline Phosphatase Troponin I Total Protein Albumin Globulin Albumin/Globulin Ratio Venous Blood Potassium Urine Color Urine Clarity Urine pH Ur Specific Echo Urine Protein Urine Glucose (UA) Urine Ketones Urine Blood Urine Nitrate Urine Bilirubin Urine Urobilinogen Ur Leukocyte Esterase Urine WBC (Auto) Urine RBC (Auto) Ur Squamous Epith Cells Urine HCG, Qual Urine Opiates Screen Urine Methadone Screen Ur Barbiturates Screen Ur Phencyclidine Scrn Ur Amphetamines Screen U Benzodiazepines Scrn U Oth Cocaine Metabols U Cannabinoids Screen Serum Ketones Assessment & Plan - Assessment and Plan (Free Text) Assessment: Patient is a 41 year old female with past medical history of uncontrolled diabetes and hypokalemia, who presents to the ED yesterday with abdominal pain and nausea, who was noted to be in DKA on admission Plan: Neuro: Alert, awake and oriented Pulm: No acute issues Cardio: No acute issues GI: NPO on admission Renal: Hypokalemia * Repleted appropriately Endo: Diabetic ketoacidodis, Hx of Insulin dependent diabetes * Insulin drip ID: No acute issues Prophylaxis: DVT: SCDs and ambulating GI: Not currently indicated <Cholo Farrar - Last Filed: 03/18/17 17:29> Results - Vital Signs Recent Vital Signs: Last Vital Signs Temp 98.7 F 03/18/17 16:00 Pulse 62 03/18/17 16:00 Resp 18 03/18/17 16:00 BP 100/71 03/18/17 16:00 Pulse Ox 98 03/18/17 16:00 - Labs Result Diagrams: 03/18/17 06:17 03/18/17 06:17 Labs: Laboratory Results - last 24 hr 03/17/17 03/17/17 03/17/17 17:26 18:04 19:34 WBC RBC Hgb Hct MCV MCH MCHC RDW Plt Count MPV Neut % (Auto) Lymph % (Auto) [place] % (Auto) Eos % (Auto) Baso % (Auto) Neut # Lymph # [place] # Eos # Baso # Sodium Potassium Chloride Carbon Dioxide Anion Gap BUN Creatinine Est GFR ( Amer) Est GFR (Non-Af Amer) POC Glucose (mg/dL) 316 H 245 H 165 H Random Glucose Calcium Phosphorus Magnesium 03/17/17 03/17/17 03/17/17 20:17 20:51 21:04 WBC RBC Hgb Hct MCV MCH MCHC RDW Plt Count MPV Neut % (Auto) Lymph % (Auto) [place] % (Auto) Eos % (Auto) Baso % (Auto) Neut # Lymph # [place] # Eos # Baso # Sodium 132 Potassium 2.7 L Chloride 106 Carbon Dioxide 17 L Anion Gap 12 BUN 9 Creatinine 0.3 L Est GFR ( Amer) > 60 Est GFR (Non-Af Amer) > 60 POC Glucose (mg/dL) 126 H 136 H Random Glucose 113 H Calcium 6.5 L Phosphorus Magnesium 03/17/17 03/17/17 03/17/17 22:05 23:07 23:57 WBC RBC Hgb Hct MCV MCH MCHC RDW Plt Count MPV Neut % (Auto) Lymph % (Auto) [place] % (Auto) Eos % (Auto) Baso % (Auto) Neut # Lymph # [place] # Eos # Baso # Sodium Potassium Chloride Carbon Dioxide Anion Gap BUN Creatinine Est GFR ( Amer) Est GFR (Non-Af Amer) POC Glucose (mg/dL) 172 H 166 H 133 H Random Glucose Calcium Phosphorus Magnesium 03/18/17 03/18/17 03/18/17 00:50 01:02 03:11 WBC RBC Hgb Hct MCV MCH MCHC RDW Plt Count MPV Neut % (Auto) Lymph % (Auto) [place] % (Auto) Eos % (Auto) Baso % (Auto) Neut # Lymph # [place] # Eos # Baso # Sodium 134 Potassium 2.9 L Chloride 108 H Carbon Dioxide 20 L Anion Gap 9 L BUN 7 Creatinine 0.3 L Est GFR ( Amer) > 60 Est GFR (Non-Af Amer) > 60 POC Glucose (mg/dL) 111 H 315 H Random Glucose 103 Calcium 7.1 L Phosphorus Magnesium 03/18/17 03/18/1717 04:06 05:00 05:58 WBC RBC Hgb Hct MCV MCH MCHC RDW Plt Count MPV Neut % (Auto) Lymph % (Auto) [place] % (Auto) Eos % (Auto) Baso % (Auto) Neut # Lymph # [place] # Eos # Baso # Sodium Potassium Chloride Carbon Dioxide Anion Gap BUN Creatinine Est GFR ( Amer) Est GFR (Non-Af Amer) POC Glucose (mg/dL) 296 H 237 H 183 H Random Glucose Calcium Phosphorus Magnesium 03/18/17 03/18/17 03/18/17 06:17 06:17 07:37 WBC 4.8 RBC 3.65 L Hgb 12.0 D Hct 33.9 L MCV 93.0 D MCH 32.8 H MCHC 35.2 RDW 14.5 Plt Count 153 MPV 9.0 Neut % (Auto) 53.0 Lymph % (Auto) 37.4 [place] % (Auto) 7.9 Eos % (Auto) 1.4 Baso % (Auto) 0.3 Neut # 2.5 Lymph # 1.8 [place] # 0.4 Eos # 0.1 Baso # 0.0 Sodium 136 Potassium 3.0 L Chloride 111 H Carbon Dioxide 18 L Anion Gap 10 BUN 9 Creatinine 0.3 L Est GFR ( Amer) > 60 Est GFR (Non-Af Amer) > 60 POC Glucose (mg/dL) 111 H Random Glucose 127 H Calcium 7.4 L Phosphorus 2.8 Magnesium 1.7 03/18/17 03/18/17 11:47 16:14 WBC RBC Hgb Hct MCV MCH MCHC RDW Plt Count MPV Neut % (Auto) Lymph % (Auto) [place] % (Auto) Eos % (Auto) Baso % (Auto) Neut # Lymph # [place] # Eos # Baso # Sodium Potassium Chloride Carbon Dioxide Anion Gap BUN Creatinine Est GFR ( Amer) Est GFR (Non-Af Amer) POC Glucose (mg/dL) 394 H 337 H Random Glucose Calcium Phosphorus Magnesium Attending/Attestation - Attestation I have personally seen and examined this patient.: Yes I have fully participated in the care of the patient.: Yes I have reviewed all pertinent clinical information: Yes Notes (Text): 03/18/17 17:27 Medical Attending: Patient was seen and examined by me. Agree with the above note by the resident The patient did have an anion gap as well as moderate ketones noted on lab work. From what I understand the patient has not had insulin in almost 6 months, it seems she claims that she is unable to afford them. She has been reporting polyuria as well as polydypsia. She has been on IVF and on an insulin ggt. She will need diabetic education as well as follow up in the [facility]. It is not clear to me why she has not followed up there. thank you Cholo Farrar
[2017-03-18] MEDS ORDERED: (Lantus) Insulin Glargine, Recombinant SC SCH (22:00)
[2017-03-19 06:35] LABS: BASO % 0.3 % (0.0-2.0); EOS # 0.1 K/uL (0.0-0.7); EOS % 1.7 % (0.0-4.0); HEMATOCRIT 39.8 % (34.0-47.0); LYMPH # 1.6 K/uL (1.0-4.3); MEAN CELL VOLUME 92.2 fL (81.0-99.0); MEAN CORPUSCULAR HEMOGLOBIN 32.3 pg (27.0-31.0); MEAN PLATELET VOLUME 8.8 fL (7.2-11.7); MONO # 0.4 K/uL (0.0-0.8); MONO % 8.8 % (0.0-10.0); RED CELL DISTRIBUTION WIDTH 14.6 % (11.5-14.5); WHITE BLOOD COUNT 4.3 K/uL (4.8-10.8)
[2017-03-19 06:57] LABS: CHLORIDE 101 mmol/L (98-107)
[2017-03-19 06:58] LABS: POTASSIUM 3.6 mmol/L (3.6-5.2); SODIUM 134 mmol/L (132-148)
[2017-03-19 07:00] LABS: BILIRUBIN,TOTAL 0.3 mg/dL (0.2-1.3); GFR AFRICAN-AMERICAN > 60
[2017-03-19 07:01] LABS: ALB/GLOB RATIO 0.9 (1.0-2.1); ALKALINE PHOSPHATASE 73 U/L (38-126); ALT/SGPT 27 U/L (9-52); AST/SGOT 13 U/L (14-36); BLOOD UREA NITROGEN 12 mg/dL (7-17); CALCIUM 8.3 mg/dl (8.6-10.4); CARBON DIOXIDE 27 mmol/L (22-30); GLUCOSE,RANDOM 319 mg/dL (65-105); TOTAL PROTEIN 5.8 g/dL (6.3-8.3)
[2017-03-19 07:28] LABS: THYROID STIMULATING HORMONE 2.07 mIU/L (0.46-4.68)
[2017-03-19 08:21] VITALS: RESP 20
[2017-03-19] MEDS: (Novolog) Insulin Aspart, Recombinant 100 u/ml 10 ml vial SC SCH ×3 (08:48→16:40)
[2017-03-19] MEDS ORDERED: Influenza Vaccine 60 mcg/0.5 mL SYR (4YR UP) IM ONE ×2 (10:00→15:55)
[2017-03-19 11:40] VITALS: O2SAT 98
--- NOTE | 2017-03-19 15:12 | CP.PCM.DIS ---
<Mai Gilbert - Last Filed: 03/19/17 17:12> Provider - Provider Date of Admission: 03/17/17 17:07 Attending physician: Cholo Farrar, Primary care physician: Leni Time Spent in preparation of Discharge (in minutes): 90 Hospital Course - Lab Results Lab Results: Micro Results 03/17/17 20:29 Naris MRSA Culture (Admit) - Final MRSA NOT DETECTED Most Recent Lab Values WBC 4.3 K/uL (4.8-10.8) L 03/19/17 06:23 RBC 4.32 Mil/uL (3.80-5.20) 03/19/17 06:23 Hgb 13.9 g/dL (11.0-16.0) 03/19/17 06:23 Hct 39.8 % (34.0-47.0) 03/19/17 06:23 MCV 92.2 fL (81.0-99.0) 03/19/17 06:23 MCH 32.3 pg (27.0-31.0) H 03/19/17 06:23 MCHC 35.0 g/dL (33.0-37.0) 03/19/17 06:23 RDW 14.6 % (11.5-14.5) H 03/19/17 06:23 Plt Count 152 K/uL (130-400) 03/19/17 06:23 MPV 8.8 fL (7.2-11.7) 03/19/17 06:23 Neut % (Auto) 52.2 % (50.0-75.0) 03/19/17 06:23 Lymph % (Auto) 37.0 % (20.0-40.0) 03/19/17 06:23 Knott % (Auto) 8.8 % (0.0-10.0) 03/19/17 06:23 Eos % (Auto) 1.7 % (0.0-4.0) 03/19/17 06:23 Baso % (Auto) 0.3 % (0.0-2.0) 03/19/17 06:23 Neut # 2.2 K/uL (1.8-7.0) 03/19/17 06:23 Lymph # 1.6 K/uL (1.0-4.3) 03/19/17 06:23 Knott # 0.4 K/uL (0.0-0.8) 03/19/17 06:23 Eos # 0.1 K/uL (0.0-0.7) 03/19/17 06:23 Baso # 0.0 K/uL (0.0-0.2) 03/19/17 06:23 pO2 63 mm/Hg (30-55) H 03/17/17 16:22 VBG pH 7.25 (7.32-7.43) L 03/17/17 16:22 VBG pCO2 24 mmHg (40-60) L 03/17/17 16:22 VBG HCO3 13.0 mmol/L 03/17/17 16:22 VBG Total CO2 11.2 mmol/L (22-28) L 03/17/17 16:22 VBG O2 Sat (Calc) 92.7 % (40-65) H 03/17/17 16:22 VBG Base Excess -14.9 mmol/L (0.0-2.0) L 03/17/17 16:22 VBG Potassium 3.0 mmol/L (3.6-5.2) L 03/17/17 16:22 A-a O2 Difference 57.0 mm/Hg 03/17/17 16:22 Sodium 132.0 mmol/l (132-148) 03/17/17 16:22 Chloride 103.0 mmol/L (98-107) 03/17/17 16:22 Glucose 463 mg/dl (65-105) H* 03/17/17 16:22 Lactate 0.7 mmol/L (0.7-2.1) 03/17/17 16:22 FiO2 21.0 % 03/17/17 16:22 Crit Value Called To Tejal 03/17/17 16:22 Crit Value Called By Stevenson marcelo 03/17/17 16:22 Crit Value Read Back Y 03/17/17 16:22 Blood Gas Notified Time 5012 03/17/17 16:22 Sodium 134 mmol/L (132-148) 03/19/17 06:23 Potassium 3.6 mmol/L (3.6-5.2) 03/19/17 06:23 Chloride 101 mmol/L (98-107) 03/19/17 06:23 Carbon Dioxide 27 mmol/L (22-30) 03/19/17 06:23 Anion Gap 9 (10-20) L 03/19/17 06:23 BUN 12 mg/dL (7-17) 03/19/17 06:23 Creatinine 0.4 mg/dL (0.7-1.2) L 03/19/17 06:23 Est GFR ( Amer) > 60 03/19/17 06:23 Est GFR (Non-Af Amer) > 60 03/19/17 06:23 POC Glucose (mg/dL) 389 mg/dL (65-110) H 03/19/17 11:35 Random Glucose 319 mg/dL (65-105) H 03/19/17 06:23 Calcium 8.3 mg/dl (8.6-10.4) L 03/19/17 06:23 Phosphorus 2.8 mg/dL (2.5-4.5) 03/18/17 06:17 Magnesium 1.7 mg/dL (1.6-2.3) 03/18/17 06:17 Total Bilirubin 0.3 mg/dL (0.2-1.3) 03/19/17 06:23 AST 13 U/L (14-36) L 03/19/17 06:23 ALT 27 U/L (9-52) 03/19/17 06:23 Alkaline Phosphatase 73 U/L (38-126) 03/19/17 06:23 Troponin I < 0.0120 ng/mL (0.00-0.120) 03/17/17 16:02 Total Protein 5.8 g/dL (6.3-8.3) L 03/19/17 06:23 Albumin 2.7 g/dL (3.5-5.0) L D 03/19/17 06:23 Globulin 3.2 gm/dL (2.2-3.9) 03/19/17 06:23 Albumin/Globulin Ratio 0.9 (1.0-2.1) L 03/19/17 06:23 TSH 3rd Generation 2.07 mIU/L (0.46-4.68) 03/19/17 06:23 Venous Blood Potassium 3.0 mmol/L (3.6-5.2) L 03/17/17 16:22 Urine Color Straw (YELLOW) 03/17/17 16:04 Urine Clarity Clear (Clear) 03/17/17 16:04 Urine pH 5.0 (5.0-8.0) 03/17/17 16:04 Ur Specific Alma 1.026 (1.003-1.030) 03/17/17 16:04 Urine Protein Negative mg/dL (NEGATIVE) 03/17/17 16:04 Urine Glucose (UA) 3+ mg/dL (Normal) H 03/17/17 16:04 Urine Ketones 2+ mg/dL (NEGATIVE) H 03/17/17 16:04 Urine Blood Negative (NEGATIVE) 03/17/17 16:04 Urine Nitrate Negative (NEGATIVE) 03/17/17 16:04 Urine Bilirubin Negative (NEGATIVE) 03/17/17 16:04 Urine Urobilinogen Normal mg/dL (0.2-1.0) 03/17/17 16:04 Ur Leukocyte Esterase Neg Cheikh/uL (Negative) 03/17/17 16:04 Urine WBC (Auto) 1 /hpf (0-5) 03/17/17 16:04 Urine RBC (Auto) < 1 /hpf (0-3) 03/17/17 16:04 Ur Squamous Epith Cells < 1 /hpf (0-5) 03/17/17 16:04 Urine HCG, Qual Negative (NEGATIVE) 03/17/17 16:04 Urine Opiates Screen Negative (NEGATIVE) 03/17/17 16:02 Urine Methadone Screen Negative (NEGATIVE) 03/17/17 16:02 Ur Barbiturates Screen Negative (NEGATIVE) 03/17/17 16:02 Ur Phencyclidine Scrn Negative (NEGATIVE) 03/17/17 16:02 Ur Amphetamines Screen Negative (NEGATIVE) 03/17/17 16:02 U Benzodiazepines Scrn Negative (NEGATIVE) 03/17/17 16:02 U Oth Cocaine Metabols Negative (NEGATIVE) 03/17/17 16:02 U Cannabinoids Screen Negative (NEGATIVE) 03/17/17 16:02 Serum Ketones Moderate (NEGATIVE) 03/17/17 16:02 - Hospital Course Hospital Course: Patient is a 41 year old female with past medical history of uncontrolled diabetes and hypokalemia, who presents to the ED on 03/17/17 with abdominal pain and nausea that started 3 days ago. Patient describes her symptoms as an 8/10 abdominal pain without radiation. Patient denied fever, chills, chest pain, palpitations, SOB, urinary symptoms, vomiting but does admits to nausea. Patient was noted to be in DKA on admission. Patient reports that she has not been taking her diabetes medication. She stated that she had lost her health insurance Medicaid and was not approved for [facility] so she stopped taking her medications at home. The patient was seeing a physician at the [facility] and was prescribed multiple medications including insulin from the clinic. Upon return of blood work the patient was found to be in DKA. She was admitted to the ICU and given IVF and insulin. The patient's symptoms and sugars were well controlled and the patient was transferred to the medical floor within 24 hours. The patient was counseled multiple times on the importance of medication compliance. The patient was approved for [facility] while in the hospital and stated that she would be compliant with her medications. Per patient, she can afford medication that is prescribed. She already has a glucometer, lancets, and testing strips at home which she states she knows how to use. Patient was discharged home on 03/19/[address] Farrar. She is to take the following medications on discharge: Lisinopril 5mg daily Simvastatin 10mg at night Aspirin 81mg daily Metformin 1000mg twice daily Novolin 70/30 SC twice daily Patient should check her finger stick sugars three times daily before meals. She should follow up in the [facility] within 1 week of discharge. She should also follow up with eyeglass lens generator and main line station engineer, referrals will be given in clinic. If patient experiences recurrence of her symptoms she should return to the ED. Instructions were explained to the patient who understands. - Date & Time of H&P Date of H&P: 03/18/17 Discharge Exam - Head Exam Head Exam: ATRAUMATIC, NORMAL INSPECTION - Eye Exam Eye Exam: EOMI, Normal appearance Pupil Exam: NORMAL ACCOMODATION - ENT Exam ENT Exam: Mucous Membranes Moist - Neck Exam Neck exam: Normal Inspection - Respiratory Exam Respiratory Exam: Clear to PA & Lateral, NORMAL BREATHING PATTERN. absent: Rales, Rhonchi, Wheezes, Respiratory Distress - Cardiovascular Exam Cardiovascular Exam: REGULAR RHYTHM, +S1, +S2 Discharge Plan - Discharge Medications Prescriptions: Aspirin 81 mg PO DAILY #30 tab.chew Insulin Human (NPH)/Regular [Novolin 70/30 (70/30 units/ml) 10 ml] 0 units SC BID #1 vial Lisinopril [Zestril] 5 mg PO DAILY #30 tablet Metformin HCl [Glucophage] 1,000 mg PO BID #60 tablet Simvastatin 10 mg PO DAILY #30 tablet - Follow Up Plan Condition: GUARDED Disposition: HOME/ ROUTINE Instructions: Lisinopril (By mouth), Metformin (By mouth), Insulin NPH/Regular (By injection), Diabetic Ketoacidosis (DC), Diabetes Mellitus Type 2 in Adults ( DC), Meal Planning with the Plate Method (DC) Additional Instructions: Patient is to be discharged home today per Dr Farrar. She is to take the following medications on discharge: Lisinopril 5mg daily Simvastatin 10mg at night Aspirin 81mg daily Metformin 1000mg twice daily Novolin 70/30 SC twice daily Patient should check her finger stick sugars three times daily before meals. She should follow up in the [facility] within 1 week of discharge. She should also follow up with eyeglass lens generator and main line station engineer, referrals will be given in clinic. If patient experiences recurrence of her symptoms she should return to the ED. Instructions were explained to the patient who understands. Referrals: [facility] at [facility] [Outside] <Cholo Farrar - Last Filed: 03/20/17 07:03> Provider - Provider Date of Admission: 03/17/17 17:07 Attending physician: Cholo Farrar, DO Hospital Course - Lab Results Lab Results: Micro Results 03/17/17 20:29 Naris MRSA Culture (Admit) - Final MRSA NOT DETECTED Most Recent Lab Values WBC 4.3 K/uL (4.8-10.8) L 03/19/17 06:23 RBC 4.32 Mil/uL (3.80-5.20) 03/19/17 06:23 Hgb 13.9 g/dL (11.0-16.0) 03/19/17 06:23 Hct 39.8 % (34.0-47.0) 03/19/17 06:23 MCV 92.2 fL (81.0-99.0) 03/19/17 06:23 MCH 32.3 pg (27.0-31.0) H 03/19/17 06:23 MCHC 35.0 g/dL (33.0-37.0) 03/19/17 06:23 RDW 14.6 % (11.5-14.5) H 03/19/17 06:23 Plt Count 152 K/uL (130-400) 03/19/17 06:23 MPV 8.8 fL (7.2-11.7) 03/19/17 06:23 Neut % (Auto) 52.2 % (50.0-75.0) 03/19/17 06:23 Lymph % (Auto) 37.0 % (20.0-40.0) 03/19/17 06:23 Knott % (Auto) 8.8 % (0.0-10.0) 03/19/17 06:23 Eos % (Auto) 1.7 % (0.0-4.0) 03/19/17 06:23 Baso % (Auto) 0.3 % (0.0-2.0) 03/19/17 06:23 Neut # 2.2 K/uL (1.8-7.0) 03/19/17 06:23 Lymph # 1.6 K/uL (1.0-4.3) 03/19/17 06:23 Knott # 0.4 K/uL (0.0-0.8) 03/19/17 06:23 Eos # 0.1 K/uL (0.0-0.7) 03/19/17 06:23 Baso # 0.0 K/uL (0.0-0.2) 03/19/17 06:23 pO2 63 mm/Hg (30-55) H 03/17/17 16:22 VBG pH 7.25 (7.32-7.43) L 03/17/17 16:22 VBG pCO2 24 mmHg (40-60) L 03/17/17 16:22 VBG HCO3 13.0 mmol/L 03/17/17 16:22 VBG Total CO2 11.2 mmol/L (22-28) L 03/17/17 16:22 VBG O2 Sat (Calc) 92.7 % (40-65) H 03/17/17 16:22 VBG Base Excess -14.9 mmol/L (0.0-2.0) L 03/17/17 16:22 VBG Potassium 3.0 mmol/L (3.6-5.2) L 03/17/17 16:22 A-a O2 Difference 57.0 mm/Hg 03/17/17 16:22 Sodium 132.0 mmol/l (132-148) 03/17/17 16:22 Chloride 103.0 mmol/L (98-107) 03/17/17 16:22 Glucose 463 mg/dl (65-105) H* 03/17/17 16:22 Lactate 0.7 mmol/L (0.7-2.1) 03/17/17 16:22 FiO2 21.0 % 03/17/17 16:22 Crit Value Called To Tejal 03/17/17 16:22 Crit Value Called By Stevenson marcelo 03/17/17 16:22 Crit Value Read Back Y 03/17/17 16:22 Blood Gas Notified Time 1628 03/17/17 16:22 Sodium 134 mmol/L (132-148) 03/19/17 06:23 Potassium 3.6 mmol/L (3.6-5.2) 03/19/17 06:23 Chloride 101 mmol/L (98-107) 03/19/17 06:23 Carbon Dioxide 27 mmol/L (22-30) 03/19/17 06:23 Anion Gap 9 (10-20) L 03/19/17 06:23 BUN 12 mg/dL (7-17) 03/19/17 06:23 Creatinine 0.4 mg/dL (0.7-1.2) L 03/19/17 06:23 Est GFR ( Amer) > 60 03/19/17 06:23 Est GFR (Non-Af Amer) > 60 03/19/17 06:23 POC Glucose (mg/dL) 305 mg/dL (65-110) H 03/19/17 16:29 Random Glucose 319 mg/dL (65-105) H 03/19/17 06:23 Calcium 8.3 mg/dl (8.6-10.4) L 03/19/17 06:23 Phosphorus 2.8 mg/dL (2.5-4.5) 03/18/17 06:17 Magnesium 1.7 mg/dL (1.6-2.3) 03/18/17 06:17 Total Bilirubin 0.3 mg/dL (0.2-1.3) 03/19/17 06:23 AST 13 U/L (14-36) L 03/19/17 06:23 ALT 27 U/L (9-52) 03/19/17 06:23 Alkaline Phosphatase 73 U/L (38-126) 03/19/17 06:23 Troponin I < 0.0120 ng/mL (0.00-0.120) 03/17/17 16:02 Total Protein 5.8 g/dL (6.3-8.3) L 03/19/17 06:23 Albumin 2.7 g/dL (3.5-5.0) L D 03/19/17 06:23 Globulin 3.2 gm/dL (2.2-3.9) 03/19/17 06:23 Albumin/Globulin Ratio 0.9 (1.0-2.1) L 03/19/17 06:23 TSH 3rd Generation 2.07 mIU/L (0.46-4.68) 03/19/17 06:23 Venous Blood Potassium 3.0 mmol/L (3.6-5.2) L 03/17/17 16:22 Urine Color Straw (YELLOW) 03/17/17 16:04 Urine Clarity Clear (Clear) 03/17/17 16:04 Urine pH 5.0 (5.0-8.0) 03/17/17 16:04 Ur Specific Alma 1.026 (1.003-1.030) 03/17/17 16:04 Urine Protein Negative mg/dL (NEGATIVE) 03/17/17 16:04 Urine Glucose (UA) 3+ mg/dL (Normal) H 03/17/17 16:04 Urine Ketones 2+ mg/dL (NEGATIVE) H 03/17/17 16:04 Urine Blood Negative (NEGATIVE) 03/17/17 16:04 Urine Nitrate Negative (NEGATIVE) 03/17/17 16:04 Urine Bilirubin Negative (NEGATIVE) 03/17/17 16:04 Urine Urobilinogen Normal mg/dL (0.2-1.0) 03/17/17 16:04 Ur Leukocyte Esterase Neg Cheikh/uL (Negative) 03/17/17 16:04 Urine WBC (Auto) 1 /hpf (0-5) 03/17/17 16:04 Urine RBC (Auto) < 1 /hpf (0-3) 03/17/17 16:04 Ur Squamous Epith Cells < 1 /hpf (0-5) 03/17/17 16:04 Urine HCG, Qual Negative (NEGATIVE) 03/17/17 16:04 Urine Opiates Screen Negative (NEGATIVE) 03/17/17 16:02 Urine Methadone Screen Negative (NEGATIVE) 03/17/17 16:02 Ur Barbiturates Screen Negative (NEGATIVE) 03/17/17 16:02 Ur Phencyclidine Scrn Negative (NEGATIVE) 03/17/17 16:02 Ur Amphetamines Screen Negative (NEGATIVE) 03/17/17 16:02 U Benzodiazepines Scrn Negative (NEGATIVE) 03/17/17 16:02 U Oth Cocaine Metabols Negative (NEGATIVE) 03/17/17 16:02 U Cannabinoids Screen Negative (NEGATIVE) 03/17/17 16:02 Serum Ketones Moderate (NEGATIVE) 03/17/17 16:02 Attending/Attestation - Attestation I have personally seen and examined this patient.: Yes I have fully participated in the care of the patient.: Yes I have reviewed all pertinent clinical information, including history, physical exam and plan: Yes Notes (Text): 03/20/17 07:02 Medical Attending: Patient was seen and examined by me Agree with the above note by the resident We had a route supervisor explain to the patient that she really needs to take her insulin otherwise the same situation can occur. She will also need to follow up in the clinic as well. thank you Cholo Farrar
[2017-03-19 17:05] VITALS: PULSE 74; TEMP 98.1
[2017-03-19 17:06] VITALS: BP 92/62
== END 2017-03-19 17:41 | disposition home or self-care (01) | DRG 294 ==
LOC: C.ER 15:07 → C.9I 17:07 → C.5S 03-19 00:31
PROVIDERS: ADMIT Hospitalist; ATTEND Hospitalist
DX: E11.10 Type 2 diabetes mellitus with ketoacidosis without coma (principal); E87.6 Hypokalemia; N18.9 Chronic kidney disease, unspecified; E11.22 Type 2 diabetes mellitus with diabetic chronic kidney disease; Z91.19 Patient's noncompliance with other medical treatment and regimen; Z79.4 Long term (current) use of insulin; Z79.82 Long term (current) use of aspirin

== ENCOUNTER 2017-06-19 16:33 | Inpatient (IN) | payer OTHER, SELFPAY ==
[2017-06-19 16:56] VITALS: BMI 21.2
[2017-06-19] MEDS ORDERED: Sodium Chloride 0.9% 1,000 ML IV STA (17:35)
[2017-06-19] MEDS ORDERED: Sodium Chloride 0.9% 1,000 ML ONE (18:09)
[2017-06-19 18:48] LABS: HCG,QUALITATIVE URINE NEGATIVE (NEGATIVE)
[2017-06-19 18:50] LABS: BASO % 0.6 % (0.0-2.0); EOS % 0.2 % (0.0-4.0); HEMOGLOBIN 14.5 g/dL (11.0-16.0); LYMPH # 1.9 K/uL (1.0-4.3); LYMPH % 21.5 % (20.0-40.0); MEAN CELL VOLUME 91.8 fL (81.0-99.0); MEAN CORPUSCULAR HEMOGLOBIN 30.9 pg (27.0-31.0); MEAN CORPUSCULAR HGB CONC 33.7 g/dL (33.0-37.0); MEAN PLATELET VOLUME 9.7 fL (7.2-11.7); MONO # 0.3 K/uL (0.0-0.8); MONO % 3.9 % (0.0-10.0); NEUT # 6.5 K/uL (1.8-7.0); NEUT % 73.8 % (50.0-75.0); RBC 4.67 Mil/uL (3.80-5.20); RED CELL DISTRIBUTION WIDTH 13.2 % (11.5-14.5); WHITE BLOOD COUNT 8.8 K/uL (4.8-10.8)
[2017-06-19 18:51] LABS: SQUAMOUS EPITHIAL 2 /hpf (0-5); URINE BACTERIA RARE (<OCC); URINE BILIRUBIN NEGATIVE (NEGATIVE); URINE BLOOD 2+ (NEGATIVE); URINE CLARITY Clear (Clear); URINE COLOR Straw (YELLOW); URINE GLUCOSE (UA) 3+ mg/dL (Normal); URINE LEUKOCYTE ESTERASE NEG Leu/uL (Negative); URINE NITRATE NEGATIVE (NEGATIVE); URINE PROTEIN 1+ mg/dL (NEGATIVE); URINE UROBILINOGEN NORMAL mg/dL (0.2-1.0)
[2017-06-19 19:03] LABS: VENOUS BLOOD GAS BASE EXCESS -21.1 mmol/L (0.0-2.0); VENOUS BLOOD GAS PCO2 25 mmHg (40-60); VENOUS BLOOD GAS PO2 29 mm/Hg (30-55); VENOUS BLOOD PH 7.08 (7.32-7.43)
[2017-06-19 19:05] LABS: ALB/GLOB RATIO 1.2 (1.0-2.1); ALBUMIN 3.5 g/dL (3.5-5.0); ALT/SGPT 18 U/L (9-52); AST/SGOT 13 U/L (14-36); BLOOD UREA NITROGEN 14 mg/dL (7-17); CALCIUM 7.1 mg/dl (8.6-10.4); GFR AFRICAN-AMERICAN > 60; GFR NON-AFRICAN AMERICAN > 60; LIPASE 153 U/L (23-300)
[2017-06-19] MEDS ORDERED: Insulin Human Regular 100 UNIT in Sodium Chloride 0.9% 99 ML IV STA (19:06)
[2017-06-19] MEDS ORDERED: Potassium Chloride 20 mEq/15 ml LIQ UD PO STA (19:07)
[2017-06-19] MEDS ORDERED: Potassium Chloride 20 mEq/15 ml LIQ UD ONE (19:22)
[2017-06-19] MEDS ORDERED: Dextrose 5%/0.9% NS 1,000 ML IV ONE (20:21)
[2017-06-19] MEDS ORDERED: Potassium Ch 20mEq in D5-1/2NS 1,000 ML IV SCH (20:30)
[2017-06-19] MEDS ORDERED: Insulin Human Regular 100 UNIT in Sodium Chloride 0.9% 99 ML SC SCH (20:30)
--- NOTE | 2017-06-19 20:39 | CP.PCM.CON ---
History of Present Illness - History of Present Illness History of Present Illness: 42 y/o female with pmx of DM (taking metformin), presents to [facility] with c/o nausea/vomitting and abdominal pain, associated with polyuiria and polydipsia. Patient notes she neer took insulin. Patient LMP apr 2017. Patient deneies any chest pain, denies any dysuria, deneis any chest pain (+)head aches , no neck stiffness, no dysuria Review of Systems - Review of Systems Systems not reviewed;Unavailable: Acuity of Condition - Constitutional Constitutional: Headache - Cardiovascular Cardiovascular: absent: Edema, Palpitations, Pedal Edema, Rapid Heart Rate - Respiratory Respiratory: absent: Cough, Dyspnea on Exertion, Chest Congestion, Excessive Mucous Production - Gastrointestinal Gastrointestinal: Abdominal Pain. absent: Coffee Ground Emesis, Cramping, Diarrhea - Genitourinary Genitourinary: absent: Dysuria - Endocrine Endocrine: Fatigue, Polydipsia, Polyuria. absent: Polyphagia Past Patient History - Infectious Disease Hx of Infectious Diseases: None - Past Medical History & Family History Past Medical History?: Yes - Past Social History Smoking Status: Never Smoked - CARDIAC Hx Cardiac Disorders: No Hx Hypercholesterolemia: Yes Hx Hypertension: Yes - PULMONARY Hx Respiratory Disorders: No - NEUROLOGICAL Hx Neurological Disorder: No - HEENT Hx HEENT Problems: No - RENAL Hx Chronic Kidney Disease: No - ENDOCRINE/METABOLIC Hx Endocrine Disorders: Yes Hx Diabetes Mellitus Type 2: Yes (not on meds) - HEMATOLOGICAL/ONCOLOGICAL Hx Blood Disorders: No - INTEGUMENTARY Hx Dermatological Problems: No - MUSCULOSKELETAL/RHEUMATOLOGICAL Hx Musculoskeletal Disorders: No Hx Falls: No - GASTROINTESTINAL Hx Gastrointestinal Disorders: No - GENITOURINARY/GYNECOLOGICAL Hx Genitourinary Disorders: No - PSYCHIATRIC Hx Psychophysiologic Disorder: No Hx Substance Use: No - SURGICAL HISTORY Hx Surgeries: Yes Hx Section: Yes (1995 1997 2005) - ANESTHESIA Hx Anesthesia: Yes Hx Anesthesia Reactions: No Hx Malignant Hyperthermia: No Meds Allergies/Adverse Reactions: Allergies Allergy/AdvReac Type Severity Reaction Status Date / Time No Known Allergies Allergy Verified 06/19/17 16:55 - Medications Medications: Current Medications Heparin Sodium (Porcine) (Heparin) 5,000 units SC Q8 [facility] Insulin Human Regular 100 unit (/ Sodium Chloride) 100 mls @ 2 mls/hr IV .Q24H STA PRN Reason: Protocol Stop: 06/20/17 19:05 Last Admin: 06/19/17 20:00 Dose: 2 mls/hr Potassium Chloride (Potassium Chloride 20 Meq/100 Ml) 20 meq in 100 mls @ 50 mls/hr IVPB ONCE STA Stop: 06/19/17 21:05 Last Admin: 06/19/17 20:03 Dose: 50 mls/hr Dextrose/Sodium Chloride (Dextrose 5%/0.9% Ns 1000 Ml) 1,000 mls @ 500 mls/hr IV .Q2H ONE Stop: 06/19/17 22:20 Insulin Human Regular 100 unit (/ Sodium Chloride) 100 mls @ 0.98 mls/hr SC .Q24H AUNG; 0.02 UNIT/KG/HR PRN Reason: Protocol Potassium Chloride/Dextrose/Sod Cl (Potassium Chl 20 Meq In D5-1/2ns) 1,000 mls @ 125 mls/hr IV .Q8H AUNG Physical Exam - Constitutional Appears: Non-toxic - Head Exam Head Exam: ATRAUMATIC, NORMAL INSPECTION, NORMOCEPHALIC - Eye Exam Eye Exam: EOMI Pupil Exam: PERRL - ENT Exam ENT Exam: Mucous Membranes Dry - Neck Exam Neck exam: Positive for: Full Rom - Respiratory Exam Respiratory Exam: Clear to Auscultation Bilateral, NORMAL BREATHING PATTERN - Cardiovascular Exam Cardiovascular Exam: REGULAR RHYTHM, +S1, +S2 - GI/Abdominal Exam GI & Abdominal Exam: Normal Bowel Sounds - Extremities Exam Extremities exam: Positive for: normal inspection - Neurological Exam Neurological exam: CN II-XII Intact, Oriented x3 - Skin Skin Exam: Normal Color Results - Vital Signs Recent Vital Signs: Last Vital Signs Temp 98.8 F 06/19/17 20:06 Pulse 79 06/19/17 20:06 Resp 20 06/19/17 20:06 BP 94/62 L 06/19/17 20:06 Pulse Ox 100 06/19/17 20:06 - Labs Result Diagrams: 06/19/17 18:42 06/19/17 18:42 Labs: Laboratory Results - last 24 hr 06/19/17 06/19/17 06/19/17 18:42 18:42 18:42 WBC 8.8 D RBC 4.67 Hgb 14.5 Hct 42.9 MCV 91.8 MCH 30.9 MCHC 33.7 RDW 13.2 Plt Count 252 D MPV 9.7 Neut % (Auto) 73.8 Lymph % (Auto) 21.5 Hall % (Auto) 3.9 Eos % (Auto) 0.2 Baso % (Auto) 0.6 Neut # 6.5 Lymph # 1.9 Hall # 0.3 Eos # 0.0 Baso # 0.0 pO2 VBG pH VBG pCO2 VBG HCO3 VBG Total CO2 VBG O2 Sat (Calc) VBG Base Excess VBG Potassium Glucose Lactate Crit Value Called To Crit Value Called By Crit Value Read Back Blood Gas Notified Time Sodium 126 L Potassium 3.2 L Chloride 103 Carbon Dioxide 6 L* D Anion Gap 20 BUN 14 Creatinine 0.5 L Est GFR ( Amer) > 60 Est GFR (Non-Af Amer) > 60 POC Glucose (mg/dL) Random Glucose 333 H Calcium 7.1 L Total Bilirubin 0.4 AST 13 L ALT 18 Alkaline Phosphatase 57 Total Protein 6.3 Albumin 3.5 D Globulin 2.8 Albumin/Globulin Ratio 1.2 Lipase 153 Venous Blood Potassium Urine Color Straw Urine Clarity Clear Urine pH 6.0 Ur Specific [place] 1.026 Urine Protein 1+ H Urine Glucose (UA) 3+ H Urine Ketones 2+ H Urine Blood 2+ H Urine Nitrate Negative Urine Bilirubin Negative Urine Urobilinogen Normal Ur Leukocyte Esterase Neg Urine WBC (Auto) 4 Urine RBC (Auto) 17 H Ur Squamous Epith Cells 2 Urine Bacteria Rare Urine HCG, Qual Negative Serum Ketones Moderate 06/19/17 06/19/17 19:00 19:28 WBC RBC Hgb Hct MCV MCH MCHC RDW Plt Count MPV Neut % (Auto) Lymph % (Auto) Hall % (Auto) Eos % (Auto) Baso % (Auto) Neut # Lymph # Hall # Eos # Baso # pO2 29 L VBG pH 7.08 L* VBG pCO2 25 L VBG HCO3 6.7 VBG Total CO2 8.2 L VBG O2 Sat (Calc) 65.3 H VBG Base Excess -21.1 L VBG Potassium 3.3 L Glucose 358 H Lactate 0.8 Crit Value Called To Kike choudhary Crit Value Called By Le barkley Crit Value Read Back Y Blood Gas Notified Time 1903 Sodium 132.0 Potassium Chloride 102.0 Carbon Dioxide Anion Gap BUN Creatinine Est GFR ( Amer) Est GFR (Non-Af Amer) POC Glucose (mg/dL) 239 H Random Glucose Calcium Total Bilirubin AST ALT Alkaline Phosphatase Total Protein Albumin Globulin Albumin/Globulin Ratio Lipase Venous Blood Potassium 3.3 L Urine Color Urine Clarity Urine pH Ur Specific [place]oplar Urine Protein Urine Glucose (UA) Urine Ketones Urine Blood Urine Nitrate Urine Bilirubin Urine Urobilinogen Ur Leukocyte Esterase Urine WBC (Auto) Urine RBC (Auto) Ur Squamous Epith Cells Urine Bacteria Urine HCG, Qual Serum Ketones Assessment & Plan (1) DKA (diabetic ketoacidoses) Status: Acute Priority: Medium - Assessment and Plan (Free Text) Assessment: -DKA: check HBA1c, BGM q1hrs, IV NS+D5+ KCL, check and replace mag/phos, continue hydration with IV insulin at 0.1 units/kg/hr and titrate as per DKA protocol -at risk of CAD: will benefit from asa, check EKG, trop -dvt ppx heparin sq -pud ppx pepcid -check UA/urine lytes and urine pregnanacy -endocrin consutl for out patient follow up Patient will benefit from ICU level care until transtiitoned to SUB Q insulin cc time 32 minutes - Date & Time Date: 06/19/17 Time: 20:43
--- NOTE | 2017-06-19 20:40 | C.PDOC ---
Time Seen by Provider: 06/19/17 17:22 Chief Complaint (Nursing): Abdominal Pain History Per: Patient Onset/Duration Of Symptoms: Days (3) Current Symptoms Are (Timing): Still Present Severity: Moderate Location Of Pain/Discomfort: Periumbilical Associated Symptoms: Nausea, Vomiting, Loss Of Appetite Alleviating Factors: None Additional History Per: Prior Records Past Medical History Reviewed: Historical Data, Nursing Documentation, Vital Signs Vital Signs: Last Vital Signs Temp 98.8 F 06/19/17 20:06 Pulse 79 06/19/17 20:06 Resp 20 06/19/17 20:06 BP 94/62 L 06/19/17 20:06 Pulse Ox 100 06/19/17 20:06 - Medical History PMH: Diabetes (noncompliant with meds), HTN, Hypercholesterolemia, Pneumonia Surgical History: - [facility] Procedures INTRODUCTION OF SERUM/TOX/VACCINE INTO MUSCLE, PERC APPROACH (07/17/15) Family History: States: Unknown Family Hx - Social History Hx Tobacco Use: No Hx Alcohol Use: No Hx Substance Use: No - Immunization History Hx Tetanus Toxoid Vaccination: No Hx Influenza Vaccination: Yes Hx Pneumococcal Vaccination: Yes Review Of Systems Except As Marked, All Systems Reviewed And Found Negative. Constitutional: Positive for: Weakness, Malaise. Negative for: Fever Cardiovascular: Negative for: Chest Pain Respiratory: Negative for: Shortness of Breath Gastrointestinal: Positive for: Nausea, Vomiting, Abdominal Pain. Negative for : Diarrhea, Melena, Hematochezia, Hematemesis Genitourinary: Positive for: Frequency Musculoskeletal: Negative for: Neck Pain Skin: Negative for: Rash Neurological: Negative for: Weakness, Numbness, Seizures Physical Exam - Physical Exam Appears: Toxic Skin: Normal Color, Warm, Dry, No Rash Head: Atraumatic, Normacephalic Eye(s): bilateral: PERRL, EOMI Oral Mucosa: Dry Neck: Normal ROM, Supple Cardiovascular: Rhythm Regular Respiratory: Normal Breath Sounds, No Accessory Muscle Use Gastrointestinal/Abdominal: Soft, No Tenderness, No Distention Back: No CVA Tenderness Extremity: Normal ROM Neurological/Psych: Oriented x3, Normal Motor, Normal Sensation ED Course And Treatment - Laboratory Results Result Diagrams: 06/19/17 18:42 06/19/17 18:42 Lab Interpretation: Abnormal Interpretation Of Abnormal: Acidosis. Positive ketones. Hyperglycemia. Urine POC: Negative O2 Sat by Pulse Oximetry: 100 Pulse Ox Interpretation: Normal - Physician Consult Information Physician Contacted: Ulises Lynn (ICU) Outcome Of Conversation: He evaluated pt in the ED and admitted to ICU. Progress - Interventions Interventions:: Observation, Intravenous fluid - Medications Administered Oral: Other (KCl) Intravenous: Antiemetic, H-2 manny, Other (Insulin. KCl) - Data Reviewed Data Reviewed: Lab, Old records - Patient Status Patient status: Partially improved, Critical - Critical Care Citical Care: Excluding Proc Time Critical Care Time: 60 minutes - Continuity of Care Discussed patient case with:: Patient, ED Nurse, On-call PMD-pt unassigned Discussed pt. case with data governance consultant/specialty: Pulmonary/Crit. Care - Patient Plan Patient Plan: Admission, ICU Disposition Discussed With : Silviano Echols Comment: He accepted pt on hospitalist service. Doctor Will See Patient In The: Hospital Counseled Patient/Family Regarding: Studies Performed, Diagnosis - Disposition Disposition: HOSPITALIZED Disposition Time: 20:00 Condition: CRITICAL - Clinical Impression Clinical Impression: DKA (diabetic ketoacidosis)
[2017-06-19] MEDS ORDERED: Insulin Human Regular 100 UNIT in Sodium Chloride 0.9% 99 ML IV SCH ×2 (21:01→21:15)
[2017-06-19 22:02] LABS: MAGNESIUM 1.7 mg/dL (1.6-2.3)
[2017-06-19 22:08] LABS: ALBUMIN 2.7 g/dL (3.5-5.0); ALT/SGPT 16 U/L (9-52); AST/SGOT 13 U/L (14-36); BLOOD UREA NITROGEN 10 mg/dL (7-17); CALCIUM 5.9 mg/dl (8.6-10.4); GFR AFRICAN-AMERICAN > 60; GFR NON-AFRICAN AMERICAN > 60; MAGNESIUM 1.7 mg/dL (1.6-2.3)
[2017-06-19 22:13] LABS: B-TYPE NATRIURETIC PEPTIDE 38.9 pg/mL (0-450)
[2017-06-19] MEDS: Magnesium Sulfate 1 gm in D5W 1 GM/100 ML BAG IVPB SCH ×2 (23:22→23:57)
[2017-06-19] MEDS: Potassium Chloride 20 mEq/15 ml LIQ UD PO SCH (23:27)
--- NOTE | 2017-06-19 23:32 | CP.PCM.HP ---
<Collin Alexandre - Last Filed: 06/20/17 04:47> History of Present Illness - History of Present Illness History of Present Illness: PGY-1 H&P for Dr. Echols CC: abdominal pain This is a 42 year old female with PMHx of uncontrolled diabetes who presented to the ED complaining of abdominal pain for the past 3 days. Pain is constant and localized in the janki-umbilical region. It does not radiate and is not associated with meals. Patient has tried Advil at home without relief. No alleviating factors were noted by the patient. Patient denies nausea but admits to one episode of vomiting today with non bloody yellow sputum. Patient denies diarrhea but admits to constipation. Her last BM was 3 days prior. Patient also complains of dysuria that also began about 3 days ago. Patient denies urinary frequency but does state that her urine output is decreased. Patient states that she has gotten short of breath with ambulation over these last 3 days. 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 Patient denies fever, chills, chest pain. Of note , patient states that she has not taken her diabetic medications for three months stating she ran out of her prescriptions. Patient states that she takes her insulin only in the morning and will vary the dose depending upon how high her sugar is. She is unable to return to the clinic to get refills because of how busy she is with her job. 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 Denies tobacco, alcohol, and drugs Family Hx: Denies PMD: [facility] Meds: States that she only usually takes Aspirin 81 mg daily, Metformin, and takes Regular insulin Present on Admission - Present on Admission Any Indicators Present on Admission: Yes History of Uncontrolled Diabetes: Yes Review of Systems - Constitutional Constitutional: absent: Chills, Fever - EENT Eyes: absent: Change in Vision Ears: absent: Decreased Hearing Nose/Mouth/Throat: absent: Nasal Congestion - Cardiovascular Cardiovascular: absent: Chest Pain - Respiratory Respiratory: absent: Cough, Dyspnea - Gastrointestinal Gastrointestinal: Abdominal Pain (per-umbilical), Constipation, Vomiting (one episode earlier today). absent: Diarrhea, Nausea - Genitourinary Genitourinary: Dysuria. absent: Hematuria, Urinary Frequency - Musculoskeletal Musculoskeletal: absent: Back Pain - Neurological Neurological: absent: Weakness - Psychiatric Psychiatric: absent: Anxiety - Endocrine Endocrine: Palpitations (chronic and only when working per patient). absent: Fatigue Past Patient History - Infectious Disease Hx of Infectious Diseases: None - Past Medical History & Family History Past Medical History?: Yes - Past Social History Smoking Status: Never Smoked - CARDIAC Hx Cardiac Disorders: Yes Hx Hypercholesterolemia: Yes Hx Hypertension: Yes - PULMONARY Hx Respiratory Disorders: No - NEUROLOGICAL Hx Neurological Disorder: No - HEENT Hx HEENT Problems: No - RENAL Hx Chronic Kidney Disease: No - ENDOCRINE/METABOLIC Hx Endocrine Disorders: Yes Hx Diabetes Mellitus Type 2: Yes - HEMATOLOGICAL/ONCOLOGICAL Hx Blood Disorders: No - INTEGUMENTARY Hx Dermatological Problems: No - MUSCULOSKELETAL/RHEUMATOLOGICAL Hx Musculoskeletal Disorders: No Hx Falls: No - GASTROINTESTINAL Hx Gastrointestinal Disorders: No - GENITOURINARY/GYNECOLOGICAL Hx Genitourinary Disorders: No - PSYCHIATRIC Hx Psychophysiologic Disorder: No Hx Substance Use: No - SURGICAL HISTORY Hx Surgeries: Yes Hx Section: Yes (1995 1997 2005) - ANESTHESIA Hx Anesthesia: Yes Hx Anesthesia Reactions: No Hx Malignant Hyperthermia: No Meds Allergies/Adverse Reactions: Allergies Allergy/AdvReac Type Severity Reaction Status Date / Time No Known Allergies Allergy Verified 06/19/17 16:55 Physical Exam - Constitutional Appears: No Acute Distress - Head Exam Head Exam: ATRAUMATIC, NORMOCEPHALIC - Eye Exam Eye Exam: EOMI, PERRL - ENT Exam ENT Exam: Mucous Membranes Dry - Respiratory Exam Respiratory Exam: Clear to Auscultation Bilateral, NORMAL BREATHING PATTERN. absent: Rales, Rhonchi, Wheezes - Cardiovascular Exam Cardiovascular Exam: REGULAR RHYTHM, +S1, +S2 - GI/Abdominal Exam GI & Abdominal Exam: Normal Bowel Sounds, Soft. absent: Distended, Tenderness - Extremities Exam Extremities exam: Positive for: pedal pulses present. Negative for: pedal edema , tenderness - Back Exam Back exam: absent: CVA tenderness (L), CVA tenderness (R) - Neurological Exam Neurological exam: Alert, CN II-XII Intact, Oriented x3 - Psychiatric Exam Psychiatric exam: Normal Affect, Normal Mood - Skin Skin Exam: Dry, Warm Results - Vital Signs Recent Vital Signs: Last Vital Signs Temp 98.8 F 06/19/17 20:06 Pulse 79 06/19/17 20:06 Resp 20 06/19/17 20:06 BP 94/62 L 06/19/17 20:06 Pulse Ox 100 06/19/17 20:43 - Labs Result Diagrams: 06/20/17 04:27 06/19/17 21:44 Labs: Laboratory Results - last 24 hr 06/19/17 06/19/17 06/19/17 18:42 18:42 18:42 WBC 8.8 D RBC 4.67 Hgb 14.5 Hct 42.9 MCV 91.8 MCH 30.9 MCHC 33.7 RDW 13.2 Plt Count 252 D MPV 9.7 Neut % (Auto) 73.8 Lymph % (Auto) 21.5 [place] % (Auto) 3.9 Eos % (Auto) 0.2 Baso % (Auto) 0.6 Neut # 6.5 Lymph # 1.9 [place] # 0.3 Eos # 0.0 Baso # 0.0 pO2 VBG pH VBG pCO2 VBG HCO3 VBG Total CO2 VBG O2 Sat (Calc) VBG Base Excess VBG Potassium Glucose Lactate Crit Value Called To Crit Value Called By Crit Value Read Back Blood Gas Notified Time Sodium 126 L Potassium 3.2 L Chloride 103 Carbon Dioxide 6 L* D Anion Gap 20 BUN 14 Creatinine 0.5 L Est GFR ( Amer) > 60 Est GFR (Non-Af Amer) > 60 POC Glucose (mg/dL) Random Glucose 333 H Calcium 7.1 L Phosphorus Magnesium Total Bilirubin 0.4 AST 13 L ALT 18 Alkaline Phosphatase 57 Troponin I NT-Pro-B Natriuret Pep Total Protein 6.3 Albumin 3.5 D Globulin 2.8 Albumin/Globulin Ratio 1.2 Lipase 153 Venous Blood Potassium Urine Color Straw Urine Clarity Clear Urine pH 6.0 Ur Specific [place] 1.026 Urine Protein 1+ H Urine Glucose (UA) 3+ H Urine Ketones 2+ H Urine Blood 2+ H Urine Nitrate Negative Urine Bilirubin Negative Urine Urobilinogen Normal Ur Leukocyte Esterase Neg Urine WBC (Auto) 4 Urine RBC (Auto) 17 H Ur Squamous Epith Cells 2 Urine Bacteria Rare Urine HCG, Qual Negative Serum Ketones Moderate 06/19/17 06/19/17 06/19/17 19:00 19:28 20:36 WBC RBC Hgb Hct MCV MCH MCHC RDW Plt Count MPV Neut % (Auto) Lymph % (Auto) [place] % (Auto) Eos % (Auto) Baso % (Auto) Neut # Lymph # [place] # Eos # Baso # pO2 29 L VBG pH 7.08 L* VBG pCO2 25 L VBG HCO3 6.7 VBG Total CO2 8.2 L VBG O2 Sat (Calc) 65.3 H VBG Base Excess -21.1 L VBG Potassium 3.3 L Glucose 358 H Lactate 0.8 Crit Value Called To Kike choudhary Crit Value Called By Le barkley Crit Value Read Back Y Blood Gas Notified Time 190 Sodium 132.0 Potassium Chloride 102.0 Carbon Dioxide Anion Gap BUN Creatinine Est GFR ( Amer) Est GFR (Non-Af Amer) POC Glucose (mg/dL) 239 H 228 H Random Glucose Calcium Phosphorus Magnesium Total Bilirubin AST ALT Alkaline Phosphatase Troponin I NT-Pro-B Natriuret Pep Total Protein Albumin Globulin Albumin/Globulin Ratio Lipase Venous Blood Potassium 3.3 L Urine Color Urine Clarity Urine pH Ur Specific [place] Urine Protein Urine Glucose (UA) Urine Ketones Urine Blood Urine Nitrate Urine Bilirubin Urine Urobilinogen Ur Leukocyte Esterase Urine WBC (Auto) Urine RBC (Auto) Ur Squamous Epith Cells Urine Bacteria Urine HCG, Qual Serum Ketones 06/19/17 06/19/17 06/19/17 21:43 21:44 21:44 WBC RBC Hgb Hct MCV MCH MCHC RDW Plt Count MPV Neut % (Auto) Lymph % (Auto) [place] % (Auto) Eos % (Auto) Baso % (Auto) Neut # Lymph # [place] # Eos # Baso # pO2 VBG pH VBG pCO2 VBG HCO3 VBG Total CO2 VBG O2 Sat (Calc) VBG Base Excess VBG Potassium Glucose Lactate Crit Value Called To Crit Value Called By Crit Value Read Back Blood Gas Notified Time Sodium 128 L Potassium 3.3 L Chloride 107 Carbon Dioxide 7 L* Anion Gap 16 BUN 10 Creatinine 0.3 L Est GFR ( Amer) > 60 Est GFR (Non-Af Amer) > 60 POC Glucose (mg/dL) 226 H Random Glucose 264 H Calcium 5.9 L* Phosphorus 1.5 L 1.5 L Magnesium 1.7 1.7 Total Bilirubin 0.3 AST 13 L ALT 16 Alkaline Phosphatase 41 Troponin I < 0.0120 NT-Pro-B Natriuret Pep 38.9 Total Protein 5.3 L Albumin 2.7 L D Globulin 2.6 Albumin/Globulin Ratio 1.0 Lipase Venous Blood Potassium Urine Color Urine Clarity Urine pH Ur Specific [place] Urine Protein Urine Glucose (UA) Urine Ketones Urine Blood Urine Nitrate Urine Bilirubin Urine Urobilinogen Ur Leukocyte Esterase Urine WBC (Auto) Urine RBC (Auto) Ur Squamous Epith Cells Urine Bacteria Urine HCG, Qual Serum Ketones Moderate 06/19/17 22:23 WBC RBC Hgb Hct MCV MCH MCHC RDW Plt Count MPV Neut % (Auto) Lymph % (Auto) [place] % (Auto) Eos % (Auto) Baso % (Auto) Neut # Lymph # [place] # Eos # Baso # pO2 VBG pH VBG pCO2 VBG HCO3 VBG Total CO2 VBG O2 Sat (Calc) VBG Base Excess VBG Potassium Glucose Lactate Crit Value Called To Crit Value Called By Crit Value Read Back Blood Gas Notified Time Sodium Potassium Chloride Carbon Dioxide Anion Gap BUN Creatinine Est GFR ( Amer) Est GFR (Non-Af Amer) POC Glucose (mg/dL) 184 H Random Glucose Calcium Phosphorus Magnesium Total Bilirubin AST ALT Alkaline Phosphatase Troponin I NT-Pro-B Natriuret Pep Total Protein Albumin Globulin Albumin/Globulin Ratio Lipase Venous Blood Potassium Urine Color Urine Clarity Urine pH Ur Specific [place] Urine Protein Urine Glucose (UA) Urine Ketones Urine Blood Urine Nitrate Urine Bilirubin Urine Urobilinogen Ur Leukocyte Esterase Urine WBC (Auto) Urine RBC (Auto) Ur Squamous Epith Cells Urine Bacteria Urine HCG, Qual Serum Ketones Assessment & Plan - Assessment and Plan (Free Text) Plan: DKA secondary to uncontrolled diabetes Patient needs sufficient and lengthy education with regards to the hazards of poor follow up and medication non-compliance Patient's symptoms are likely because of dehydration secondary to her DKA Insulin drip as per DKA protocol continue to monitor management as per ICU f/u hemoglobin A1c f/u repeat UA Case DW Dr. Kinza Alexandre PGY-1 <Silviano Echols - Last Filed: 06/20/17 06:13> Results - Vital Signs Recent Vital Signs: Last Vital Signs Temp 98.3 F 06/20/17 04:00 Pulse 78 06/20/17 05:07 Resp 13 06/20/17 05:07 BP 98/64 L 06/20/17 05:07 Pulse Ox 100 06/20/17 05:07 - Labs Result Diagrams: 06/20/17 04:27 06/20/17 04:27 Labs: Laboratory Results - last 24 hr 06/19/17 06/19/17 06/19/17 18:42 18:42 18:42 WBC 8.8 D RBC 4.67 Hgb 14.5 Hct 42.9 MCV 91.8 MCH 30.9 MCHC 33.7 RDW 13.2 Plt Count 252 D MPV 9.7 Neut % (Auto) 73.8 Lymph % (Auto) 21.5 [place] % (Auto) 3.9 Eos % (Auto) 0.2 Baso % (Auto) 0.6 Neut # 6.5 Lymph # 1.9 [place] # 0.3 Eos # 0.0 Baso # 0.0 pO2 VBG pH VBG pCO2 VBG HCO3 VBG Total CO2 VBG O2 Sat (Calc) VBG Base Excess VBG Potassium Glucose Lactate Crit Value Called To Crit Value Called By Crit Value Read Back Blood Gas Notified Time Sodium 126 L Potassium 3.2 L Chloride 103 Carbon Dioxide 6 L* D Anion Gap 20 BUN 14 Creatinine 0.5 L Est GFR ( Amer) > 60 Est GFR (Non-Af Amer) > 60 POC Glucose (mg/dL) Random Glucose 333 H Calcium 7.1 L Phosphorus Magnesium Total Bilirubin 0.4 AST 13 L ALT 18 Alkaline Phosphatase 57 Troponin I NT-Pro-B Natriuret Pep Total Protein 6.3 Albumin 3.5 D Globulin 2.8 Albumin/Globulin Ratio 1.2 Lipase 153 Venous Blood Potassium Urine Color Straw Urine Clarity Clear Urine pH 6.0 Ur Specific [place] 1.026 Urine Protein 1+ H Urine Glucose (UA) 3+ H Urine Ketones 2+ H Urine Blood 2+ H Urine Nitrate Negative Urine Bilirubin Negative Urine Urobilinogen Normal Ur Leukocyte Esterase Neg Urine WBC (Auto) 4 Urine RBC (Auto) 17 H Ur Squamous Epith Cells 2 Urine Bacteria Rare Urine HCG, Qual Negative Serum Ketones Moderate 06/19/17 06/19/17 06/19/17 19:00 19:28 20:36 WBC RBC Hgb Hct MCV MCH MCHC RDW Plt Count MPV Neut % (Auto) Lymph % (Auto) [place] % (Auto) Eos % (Auto) Baso % (Auto) Neut # Lymph # [place] # Eos # Baso # pO2 29 L VBG pH 7.08 L* VBG pCO2 25 L VBG HCO3 6.7 VBG Total CO2 8.2 L VBG O2 Sat (Calc) 65.3 H VBG Base Excess -21.1 L VBG Potassium 3.3 L Glucose 358 H Lactate 0.8 Crit Value Called To Kike choudhary Crit Value Called By Le rt Crit Value Read Back Y Blood Gas Notified Time 190 Sodium 132.0 Potassium Chloride 102.0 Carbon Dioxide Anion Gap BUN Creatinine Est GFR ( Amer) Est GFR (Non-Af Amer) POC Glucose (mg/dL) 239 H 228 H Random Glucose Calcium Phosphorus Magnesium Total Bilirubin AST ALT Alkaline Phosphatase Troponin I NT-Pro-B Natriuret Pep Total Protein Albumin Globulin Albumin/Globulin Ratio Lipase Venous Blood Potassium 3.3 L Urine Color Urine Clarity Urine pH Ur Specific [place] Urine Protein Urine Glucose (UA) Urine Ketones Urine Blood Urine Nitrate Urine Bilirubin Urine Urobilinogen Ur Leukocyte Esterase Urine WBC (Auto) Urine RBC (Auto) Ur Squamous Epith Cells Urine Bacteria Urine HCG, Qual Serum Ketones 06/19/17 06/19/17 06/19/17 21:43 21:44 21:44 WBC RBC Hgb Hct MCV MCH MCHC RDW Plt Count MPV Neut % (Auto) Lymph % (Auto) [place] % (Auto) Eos % (Auto) Baso % (Auto) Neut # Lymph # [place] # Eos # Baso # pO2 VBG pH VBG pCO2 VBG HCO3 VBG Total CO2 VBG O2 Sat (Calc) VBG Base Excess VBG Potassium Glucose Lactate Crit Value Called To Crit Value Called By Crit Value Read Back Blood Gas Notified Time Sodium 128 L Potassium 3.3 L Chloride 107 Carbon Dioxide 7 L* Anion Gap 16 BUN 10 Creatinine 0.3 L Est GFR ( Amer) > 60 Est GFR (Non-Af Amer) > 60 POC Glucose (mg/dL) 226 H Random Glucose 264 H Calcium 5.9 L* Phosphorus 1.5 L 1.5 L Magnesium 1.7 1.7 Total Bilirubin 0.3 AST 13 L ALT 16 Alkaline Phosphatase 41 Troponin I < 0.0120 NT-Pro-B Natriuret Pep 38.9 Total Protein 5.3 L Albumin 2.7 L D Globulin 2.6 Albumin/Globulin Ratio 1.0 Lipase Venous Blood Potassium Urine Color Urine Clarity Urine pH Ur Specific [place] Urine Protein Urine Glucose (UA) Urine Ketones Urine Blood Urine Nitrate Urine Bilirubin Urine Urobilinogen Ur Leukocyte Esterase Urine WBC (Auto) Urine RBC (Auto) Ur Squamous Epith Cells Urine Bacteria Urine HCG, Qual Serum Ketones Moderate 06/19/17 06/19/17 06/20/17 22:23 23:45 00:39 WBC RBC Hgb Hct MCV MCH MCHC RDW Plt Count MPV Neut % (Auto) Lymph % (Auto) [place] % (Auto) Eos % (Auto) Baso % (Auto) Neut # Lymph # [place] # Eos # Baso # pO2 VBG pH VBG pCO2 VBG HCO3 VBG Total CO2 VBG O2 Sat (Calc) VBG Base Excess VBG Potassium Glucose Lactate Crit Value Called To Crit Value Called By Crit Value Read Back Blood Gas Notified Time Sodium Potassium Chloride Carbon Dioxide Anion Gap BUN Creatinine Est GFR ( Amer) Est GFR (Non-Af Amer) POC Glucose (mg/dL) 184 H 153 H 155 H Random Glucose Calcium Phosphorus Magnesium Total Bilirubin AST ALT Alkaline Phosphatase Troponin I NT-Pro-B Natriuret Pep Total Protein Albumin Globulin Albumin/Globulin Ratio Lipase Venous Blood Potassium Urine Color Urine Clarity Urine pH Ur Specific [place] Urine Protein Urine Glucose (UA) Urine Ketones Urine Blood Urine Nitrate Urine Bilirubin Urine Urobilinogen Ur Leukocyte Esterase Urine WBC (Auto) Urine RBC (Auto) Ur Squamous Epith Cells Urine Bacteria Urine HCG, Qual Serum Ketones 06/20/17 06/20/17 06/20/17 01:38 03:03 04:16 WBC RBC Hgb Hct MCV MCH MCHC RDW Plt Count MPV Neut % (Auto) Lymph % (Auto) [place] % (Auto) Eos % (Auto) Baso % (Auto) Neut # Lymph # [place] # Eos # Baso # pO2 VBG pH VBG pCO2 VBG HCO3 VBG Total CO2 VBG O2 Sat (Calc) VBG Base Excess VBG Potassium Glucose Lactate Crit Value Called To Crit Value Called By Crit Value Read Back Blood Gas Notified Time Sodium Potassium Chloride Carbon Dioxide Anion Gap BUN Creatinine Est GFR ( Amer) Est GFR (Non-Af Amer) POC Glucose (mg/dL) 106 171 H 158 H Random Glucose Calcium Phosphorus Magnesium Total Bilirubin AST ALT Alkaline Phosphatase Troponin I NT-Pro-B Natriuret Pep Total Protein Albumin Globulin Albumin/Globulin Ratio Lipase Venous Blood Potassium Urine Color Urine Clarity Urine pH Ur Specific [place] Urine Protein Urine Glucose (UA) Urine Ketones Urine Blood Urine Nitrate Urine Bilirubin Urine Urobilinogen Ur Leukocyte Esterase Urine WBC (Auto) Urine RBC (Auto) Ur Squamous Epith Cells Urine Bacteria Urine HCG, Qual Serum Ketones 06/20/17 06/20/17 04:27 04:27 WBC 6.4 RBC 4.39 Hgb 13.5 Hct 39.0 MCV 88.8 D MCH 30.8 MCHC 34.7 RDW 12.9 Plt Count 229 MPV 9.1 Neut % (Auto) Lymph % (Auto) [place] % (Auto) Eos % (Auto) Baso % (Auto) Neut # Lymph # [place] # Eos # Baso # pO2 VBG pH VBG pCO2 VBG HCO3 VBG Total CO2 VBG O2 Sat (Calc) VBG Base Excess VBG Potassium Glucose Lactate Crit Value Called To Crit Value Called By Crit Value Read Back Blood Gas Notified Time Sodium 131 L Potassium 4.8 Chloride 113 H Carbon Dioxide 14 L Anion Gap 9 L BUN 6 L Creatinine 0.3 L Est GFR ( Amer) > 60 Est GFR (Non-Af Amer) > 60 POC Glucose (mg/dL) Random Glucose 165 H Calcium 6.5 L Phosphorus 1.7 L Magnesium 2.2 Total Bilirubin 0.5 AST 17 ALT 15 Alkaline Phosphatase 31 L D Troponin I NT-Pro-B Natriuret Pep Total Protein 5.6 L Albumin 2.8 L Globulin 2.8 Albumin/Globulin Ratio 1.0 Lipase Venous Blood Potassium Urine Color Urine Clarity Urine pH Ur Specific [place] Urine Protein Urine Glucose (UA) Urine Ketones Urine Blood Urine Nitrate Urine Bilirubin Urine Urobilinogen Ur Leukocyte Esterase Urine WBC (Auto) Urine RBC (Auto) Ur Squamous Epith Cells Urine Bacteria Urine HCG, Qual Serum Ketones Assessment & Plan - Date & Time Date: 06/20/17 (I have seen and examined the patient. I agree with the findings and plan of care as documented by Dr. Alexandre. Patient with DKA. Admitted to ICU for further management. IVF and insulin drip. Also needs more education regarding disease and medication compliance. Monitor for acute changes.) Time: 06:12 Attending/Attestation - Attestation I have personally seen and examined this patient.: Yes I have fully participated in the care of the patient.: Yes I have reviewed all pertinent clinical information: Yes
[2017-06-20] MEDS ORDERED: Potassium Phosphate 15 MMOLE in Sodium Chloride 0.9% 250 ML IVPB ONE (00:30)
[2017-06-20] MEDS ORDERED: Dextrose 50% VIAL Inj (50 ml) IV ONE (01:48)
[2017-06-20] MEDS: Potassium Chloride 20 mEq/15 ml LIQ UD PO SCH (02:43)
[2017-06-20 04:30] LABS: HEMOGLOBIN 13.5 g/dL (11.0-16.0); MEAN CELL VOLUME 88.8 fL (81.0-99.0); MEAN CORPUSCULAR HEMOGLOBIN 30.8 pg (27.0-31.0); MEAN CORPUSCULAR HGB CONC 34.7 g/dL (33.0-37.0); MEAN PLATELET VOLUME 9.1 fL (7.2-11.7); RBC 4.39 Mil/uL (3.80-5.20); RED CELL DISTRIBUTION WIDTH 12.9 % (11.5-14.5); WHITE BLOOD COUNT 6.4 K/uL (4.8-10.8)
[2017-06-20 04:56] LABS: ALBUMIN 2.8 g/dL (3.5-5.0); ALT/SGPT 15 U/L (9-52); AST/SGOT 17 U/L (14-36); BLOOD UREA NITROGEN 6 mg/dL (7-17); CALCIUM 6.5 mg/dl (8.6-10.4); GFR AFRICAN-AMERICAN > 60; GFR NON-AFRICAN AMERICAN > 60; MAGNESIUM 2.2 mg/dL (1.6-2.3)
[2017-06-20] MEDS ORDERED: Dextrose 5%/0.45% NS 1,000 ML IV SCH (05:15)
[2017-06-20] MEDS ORDERED: (Novolog Mix 70/30) Insulin Aspart/Insulin Aspar 100 units/ml SC SCH (07:30)
[2017-06-20] MEDS ORDERED: Sodium Phosphate 15 MMOLE in Sodium Chloride 0.9% 250 ML IVPB ONE (08:00)
--- NOTE | 2017-06-20 08:27 | CP.PCM.PN ---
Subjective - Date & Time of Evaluation Date of Evaluation: 06/20/17 Time of Evaluation: 08:00 - Subjective Subjective: Hospitalist Progress Note Patient was seen and examined at 8 AM 06/20/17 ICU Bed #3 Patient is Uzbek speaking only but I was able to communicate with her with my Uzbek. [place]DEMAND Interpretor could not be connected to at the time of my exam. 42 year old female who was admitted to the ICU on evening of 06/19/17 after she had been found to be in DKA. This is the second admission for DKA for this patient since 03/19/17. She revealed that she has not been able to consistently take her Insulin and medications at home due to monetary issues and has not been able to follow up with the [facility] due to her being busy at work. Upon ROS: SOB has resolved NOT experiencing palpitations currently She had a small normal bowel movement this morning She is NOT nauseous and has NOT vomited since admission She is NOT experiencing the periumbilical abdominal pain NO burning/pain with urination NO headache NO new changes in vision NO new changes in hearing NO paresthesias NO edema NO chest pain Exam: General: She was asleep but easily arousable. She is in NO apparent distress. She is alert and oriented HEENT: NCA, PERRLA, EOMI, NO pharyngeal erythema/exudate, NO lymphadenopathy, NO thyromegaly, Nasal Turbinates are nonerythematous/nonedematous Cardio: NS1 and NS2, NO M/R/G Resp: CTA B/L, NO R/R/W GI: BSx4, Soft, NT, ND, NO HSM, NO guarding/rebound tenderness Ext: Pulses are strong and equal, Capillary Refill is 2 seconds, Pulses are strong and equal Neuro: CN II through XII are grossly intact Assessment and Plan: 1). DKA Likely secondary to not taking her medications at home ICU Team has discontinued Insulin Drip, started patient on Lantus 10 Units SC at 9 AM, and kept maintenance fluids at D5 1/2 NS at 125 ml/hour Consultation with [employer] Application Developer Dr. Sheridan has been ordered for more affordable Insulin regimen as patient will not be able to afford the Lantus: Novolin 70/30? F/U HgBA1C, TSH, T4, Lipid Panel Crestor 5 mg PO HS for now and discharge on Simvastatin 10 mg PO HS HOLD off on THUY I for now (Lisinopril 5 mg PO 1x/day) as blood pressure is at the low end of normal 2). Hypocalcemia Patient has received Calcium Gluconate 3 g since admission It has improved 3). Hypophosphotemia Sodium Phosphate 15 mmol at 50 ml/hour to finish at 1 PM. It has improved 4). Hyponatremia Could have secondary to the Hyperglycemia It has improved 5). Abdominal Pain PeriUmbilical with Vomting Could have been secondary to the DKA This has resolved 6). C/O Palpitations This has resolved EKG shows 1st AV Block at 77 bpm 7). C/O SOB This has resolved 8). C/O Constipation She had a small bowel movement this morning Monitor 9). Prophylaxis Heparin 5,000 Units SC Q8H Pepcid 20 mg PO 2x/day Diabetic Diet Diabetic Counseling House Painter Helper consult to help patient with her medications Shukri Lynn D.O. Objective - Vital Signs/Intake and Output Vital Signs (last 24 hours): Temp Pulse Resp BP Pulse Ox 98.3 F 71 12 85/55 L 99 06/20/17 04:00 06/20/17 07:05 06/20/17 07:05 06/20/17 07:07 06/20/17 07:05 Intake and Output: 06/20/17 06/20/17 06:59 18:59 Intake Total 2415.0 259 Output Total 2450 Balance -35.0 259 - Medications Medications: Current Medications Heparin Sodium (Porcine) (Heparin) 5,000 units SC Q8 [facility] Last Admin: 06/20/17 06:09 Dose: 5,000 units Insulin Human Regular 100 unit (/ Sodium Chloride) 100 mls @ 4.94 mls/hr IV .[id number] AUNG; 0.1 UNIT/KG/HR PRN Reason: Protocol Last Titration: 06/20/17 07:12 Dose: 0 unit/kg/hr, 0 mls/hr Dextrose/Sodium Chloride (Dextrose 5%/0.45% Ns 1000 Ml) 1,000 mls @ 125 mls/hr IV .Q8H AUNG Last Admin: 06/20/17 06:10 Dose: 125 mls/hr Sodium Phosphate 15 mmole/ (Sodium Chloride) 255 mls @ 50 mls/hr IVPB .[id number] ONE Stop: 06/20/17 13:05 Insulin Aspart (Novolog Mix 70/30 (70/30 Units/Ml)) 3 units SC [facility] Insulin Glargine (Lantus) 10 unit SC DAILY@0900 [facility] - Labs Labs: 06/20/17 04:27 06/20/17 04:27
[2017-06-20] MEDS: (Lantus) Insulin Glargine, Recombinant SC SCH (08:44)
[2017-06-20] MEDS: Sodium Chloride 0.9% 1,000 ML IV SCH ×2 (09:30→20:21)
[2017-06-20] MEDS ORDERED: (Novolin R) Insulin Human Regular 100 units/ml vial SC SCH (11:30)
[2017-06-20] MEDS: (Novolin R) Insulin Human Regular 100 units/ml vial SC SCH ×3 (13:00→21:26)
--- NOTE | 2017-06-20 14:49 | CP.CCUPN ---
CCU Subjective - Physician Review Subjective (Free Text): 06/20/17 14:45 Pt. presented to ED w/ cc of non-radiating, periumbilical, abdominal pain associated w/ meals.Pt reportsthat she has not taken her diabetic medications for three months because she ran out of her prescriptions. 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 This is the Pts second admission for DKA since 03/19/17. Pt reports that her medications include Asprin 81 mg daily, Metformin, and regular PSHx of Csx x3. NKDA. CCU Objective - Vital Signs / Intake & Output Vital Signs (Last 4 hours): Vital Signs Temp Pulse Resp BP 06/20/17 12:22 83 10 L 91/60 L 06/20/17 12:00 98.7 F Intake and Output (Last 8hrs): Intake & Output 06/19/17 06/20/17 06/20/17 22:59 06:59 14:59 Intake Total 333 2082.0 259 Output Total 2450 Balance 333 -368.0 259 Weight 109 lb 110 lb 11.2 oz Intake: IV 4 7 9 Intake, IV Amount 329 1595.0 250 Left Antecubital 4 15 0 left AC 200 655.0 125 left AC port 2 125 925 125 Oral 480 Output: Urine 2450 Urine, Voided 2450 Other: Voiding Method Bedside Commode # Voids Urine, Voided 1 # Bowel Movements 1 - Physical Exam Head: Positive for: Atraumatic, Normocephalic Pupils: Positive for: PERRL Extroacular Muscles: Positive for: EOMI Mouth: Positive for: Moist Mucous Membranes Respiratory/Chest: Positive for: Clear to Auscultation Cardiovascular: Positive for: Regular Rate and Rhythm, Normal S1, S2 Abdomen: Positive for: Normal Bowel Sounds. Negative for: Tenderness, Distention, Peritoneal Signs Upper Extremity: Positive for: Normal Inspection Lower Extremity: Positive for: Normal Inspection Neurological: Negative for: GCS=15 Skin: Positive for: Warm, Dry, Normal Color. Negative for: Rashes - Medications Active Medications: Active Medications Generic Name Dose Route Start Last Admin Trade Name Freq PRN Reason Stop Dose Admin Famotidine 20 mg 06/20/17 10:00 06/20/17 09:23 Pepcid PO 20 mg BID AUNG Administration Heparin Sodium (Porcine) 5,000 units 06/19/17 22:00 06/20/17 14:11 Heparin SC 5,000 units Q8 AUNG Administration Sodium Chloride 1,000 mls @ 100 mls/hr 06/20/17 09:30 06/20/17 09:30 Sodium Chloride 0.9% IV 100 mls/hr .Q10H AUNG Administration Insulin Glargine 10 unit 06/20/17 09:00 06/20/17 08:44 Lantus SC 10 unit DAILY@0900 AUNG Administration Insulin Human Isoph/Insulin Regular 24 units 06/21/17 07:30 Novolin 70/30 (70/30 Units/Ml) 10 Ml SC ACB AUNG Insulin Human Isoph/Insulin Regular 16 units 06/20/17 16:30 Novolin 70/30 (70/30 Units/Ml) 10 Ml SC ACD AUGN Insulin Human NPH 10 unit 06/20/17 22:00 Novolin N SC HS AUNG Insulin Human Regular 0 unit 06/20/17 11:30 06/20/17 13:00 Novolin R SC 5 unit ACHS AUNG Administration Protocol Rosuvastatin Calcium 5 mg 06/20/17 22:00 Crestor PO HS AUNG - Patient Studies Lab Studies: Lab Studies 06/20/17 06/20/17 06/20/17 Range/Units 11:27 08:16 07:03 WBC (4.8-10.8) K/uL RBC (3.80-5.20) Mil/uL Hgb (11.0-16.0) g/dL Hct (34.0-47.0) % MCV (81.0-99.0) fL MCH (27.0-31.0) pg MCHC (33.0-37.0) g/dL RDW (11.5-14.5) % Plt Count (130-400) K/uL MPV (7.2-11.7) fL Neut % (Auto) (50.0-75.0) % Lymph % (Auto) (20.0-40.0) % [place] % (Auto) (0.0-10.0) % Eos % (Auto) (0.0-4.0) % Baso % (Auto) (0.0-2.0) % Neut # (1.8-7.0) K/uL Lymph # (1.0-4.3) K/uL [place] # (0.0-0.8) K/uL Eos # (0.0-0.7) K/uL Baso # (0.0-0.2) K/uL pO2 (30-55) mm/Hg VBG pH (7.32-7.43) VBG pCO2 (40-60) mmHg VBG HCO3 mmol/L VBG Total CO2 (22-28) mmol/L VBG O2 Sat (Calc) (40-65) % VBG Base Excess (0.0-2.0) mmol/L VBG Potassium (3.6-5.2) mmol/L Glucose (65-105) mg/dl Lactate (0.7-2.1) mmol/L Crit Value Called To Crit Value Called By Crit Value Read Back Blood Gas Notified Time Sodium (132-148) mmol/L Potassium (3.6-5.2) mmol/L Chloride (98-107) mmol/L Carbon Dioxide (22-30) mmol/L Anion Gap (10-20) BUN (7-17) mg/dL Creatinine (0.7-1.2) mg/dL Est GFR ( Amer) Est GFR (Non-Af Amer) POC Glucose (mg/dL) 364 H 164 H 139 H (65-110) mg/dL Random Glucose (65-105) mg/dL Hemoglobin A1c (4.2-6.5) % Calcium (8.6-10.4) mg/dl Phosphorus (2.5-4.5) mg/dL Magnesium (1.6-2.3) mg/dL Total Bilirubin (0.2-1.3) mg/dL AST (14-36) U/L ALT (9-52) U/L Alkaline Phosphatase (38-126) U/L Troponin I (0.00-0.120) ng/mL NT-Pro-B Natriuret Pep (0-450) pg/mL Total Protein (6.3-8.3) g/dL Albumin (3.5-5.0) g/dL Globulin (2.2-3.9) gm/dL Albumin/Globulin Ratio (1.0-2.1) Lipase (23-300) U/L Venous Blood Potassium (3.6-5.2) mmol/L Urine Color (YELLOW) Urine Clarity (Clear) Urine pH (5.0-8.0) Ur Specific [place] (1.003-1.030) Urine Protein (NEGATIVE) mg/dL Urine Glucose (UA) (Normal) mg/dL Urine Ketones (NEGATIVE) mg/dL Urine Blood (NEGATIVE) Urine Nitrate (NEGATIVE) Urine Bilirubin (NEGATIVE) Urine Urobilinogen (0.2-1.0) mg/dL Ur Leukocyte Esterase (Negative) Cheikh/uL Urine WBC (Auto) (0-5) /hpf Urine RBC (Auto) (0-3) /hpf Ur Squamous Epith Cells (0-5) /hpf Urine Bacteria (<OCC) Urine HCG, Qual (NEGATIVE) Serum Ketones (NEGATIVE) 06/20/17 06/20/17 06/20/17 Range/Units 06:13 05:24 05:13 WBC (4.8-10.8) K/uL RBC (3.80-5.20) Mil/uL Hgb (11.0-16.0) g/dL Hct (34.0-47.0) % MCV (81.0-99.0) fL MCH (27.0-31.0) pg MCHC (33.0-37.0) g/dL RDW (11.5-14.5) % Plt Count (130-400) K/uL MPV (7.2-11.7) fL Neut % (Auto) (50.0-75.0) % Lymph % (Auto) (20.0-40.0) % [place] % (Auto) (0.0-10.0) % Eos % (Auto) (0.0-4.0) % Baso % (Auto) (0.0-2.0) % Neut # (1.8-7.0) K/uL Lymph # (1.0-4.3) K/uL [place] # (0.0-0.8) K/uL Eos # (0.0-0.7) K/uL Baso # (0.0-0.2) K/uL pO2 (30-55) mm/Hg VBG pH (7.32-7.43) VBG pCO2 (40-60) mmHg VBG HCO3 mmol/L VBG Total CO2 (22-28) mmol/L VBG O2 Sat (Calc) (40-65) % VBG Base Excess (0.0-2.0) mmol/L VBG Potassium (3.6-5.2) mmol/L Glucose (65-105) mg/dl Lactate (0.7-2.1) mmol/L Crit Value Called To Crit Value Called By Crit Value Read Back Blood Gas Notified Time Sodium (132-148) mmol/L Potassium (3.6-5.2) mmol/L Chloride (98-107) mmol/L Carbon Dioxide (22-30) mmol/L Anion Gap (10-20) BUN (7-17) mg/dL Creatinine (0.7-1.2) mg/dL Est GFR ( Amer) Est GFR (Non-Af Amer) POC Glucose (mg/dL) 154 H 152 H 148 H (65-110) mg/dL Random Glucose (65-105) mg/dL Hemoglobin A1c (4.2-6.5) % Calcium (8.6-10.4) mg/dl Phosphorus (2.5-4.5) mg/dL Magnesium (1.6-2.3) mg/dL Total Bilirubin (0.2-1.3) mg/dL AST (14-36) U/L ALT (9-52) U/L Alkaline Phosphatase (38-126) U/L Troponin I (0.00-0.120) ng/mL NT-Pro-B Natriuret Pep (0-450) pg/mL Total Protein (6.3-8.3) g/dL Albumin (3.5-5.0) g/dL Globulin (2.2-3.9) gm/dL Albumin/Globulin Ratio (1.0-2.1) Lipase (23-300) U/L Venous Blood Potassium (3.6-5.2) mmol/L Urine Color (YELLOW) Urine Clarity (Clear) Urine pH (5.0-8.0) Ur Specific [place] (1.003-1.030) Urine Protein (NEGATIVE) mg/dL Urine Glucose (UA) (Normal) mg/dL Urine Ketones (NEGATIVE) mg/dL Urine Blood (NEGATIVE) Urine Nitrate (NEGATIVE) Urine Bilirubin (NEGATIVE) Urine Urobilinogen (0.2-1.0) mg/dL Ur Leukocyte Esterase (Negative) Cheikh/uL Urine WBC (Auto) (0-5) /hpf Urine RBC (Auto) (0-3) /hpf Ur Squamous Epith Cells (0-5) /hpf Urine Bacteria (<OCC) Urine HCG, Qual (NEGATIVE) Serum Ketones (NEGATIVE) 06/20/17 06/20/17 06/20/17 Range/Units 04:27 04:27 04:16 WBC 6.4 (4.8-10.8) K/uL RBC 4.39 (3.80-5.20) Mil/uL Hgb 13.5 (11.0-16.0) g/dL Hct 39.0 (34.0-47.0) % MCV 88.8 D (81.0-99.0) fL MCH 30.8 (27.0-31.0) pg MCHC 34.7 (33.0-37.0) g/dL RDW 12.9 (11.5-14.5) % Plt Count 229 (130-400) K/uL MPV 9.1 (7.2-11.7) fL Neut % (Auto) (50.0-75.0) % Lymph % (Auto) (20.0-40.0) % [place] % (Auto) (0.0-10.0) % Eos % (Auto) (0.0-4.0) % Baso % (Auto) (0.0-2.0) % Neut # (1.8-7.0) K/uL Lymph # (1.0-4.3) K/uL [place] # (0.0-0.8) K/uL Eos # (0.0-0.7) K/uL Baso # (0.0-0.2) K/uL pO2 (30-55) mm/Hg VBG pH (7.32-7.43) VBG pCO2 (40-60) mmHg VBG HCO3 mmol/L VBG Total CO2 (22-28) mmol/L VBG O2 Sat (Calc) (40-65) % VBG Base Excess (0.0-2.0) mmol/L VBG Potassium (3.6-5.2) mmol/L Glucose (65-105) mg/dl Lactate (0.7-2.1) mmol/L Crit Value Called To Crit Value Called By Crit Value Read Back Blood Gas Notified Time Sodium 131 L (132-148) mmol/L Potassium 4.8 (3.6-5.2) mmol/L Chloride 113 H (98-107) mmol/L Carbon Dioxide 14 L (22-30) mmol/L Anion Gap 9 L (10-20) BUN 6 L (7-17) mg/dL Creatinine 0.3 L (0.7-1.2) mg/dL Est GFR ( Amer) > 60 Est GFR (Non-Af Amer) > 60 POC Glucose (mg/dL) 158 H (65-110) mg/dL Random Glucose 165 H (65-105) mg/dL Hemoglobin A1c (4.2-6.5) % Calcium 6.5 L (8.6-10.4) mg/dl Phosphorus 1.7 L (2.5-4.5) mg/dL Magnesium 2.2 (1.6-2.3) mg/dL Total Bilirubin 0.5 (0.2-1.3) mg/dL AST 17 (14-36) U/L ALT 15 (9-52) U/L Alkaline Phosphatase 31 L D (38-126) U/L Troponin I (0.00-0.120) ng/mL NT-Pro-B Natriuret Pep (0-450) pg/mL Total Protein 5.6 L (6.3-8.3) g/dL Albumin 2.8 L (3.5-5.0) g/dL Globulin 2.8 (2.2-3.9) gm/dL Albumin/Globulin Ratio 1.0 (1.0-2.1) Lipase (23-300) U/L Venous Blood Potassium (3.6-5.2) mmol/L Urine Color (YELLOW) Urine Clarity (Clear) Urine pH (5.0-8.0) Ur Specific [place] (1.003-1.030) Urine Protein (NEGATIVE) mg/dL Urine Glucose (UA) (Normal) mg/dL Urine Ketones (NEGATIVE) mg/dL Urine Blood (NEGATIVE) Urine Nitrate (NEGATIVE) Urine Bilirubin (NEGATIVE) Urine Urobilinogen (0.2-1.0) mg/dL Ur Leukocyte Esterase (Negative) Cheikh/uL Urine WBC (Auto) (0-5) /hpf Urine RBC (Auto) (0-3) /hpf Ur Squamous Epith Cells (0-5) /hpf Urine Bacteria (<OCC) Urine HCG, Qual (NEGATIVE) Serum Ketones (NEGATIVE) 06/20/17 06/20/17 06/20/17 Range/Units 03:03 01:38 00:39 WBC (4.8-10.8) K/uL RBC (3.80-5.20) Mil/uL Hgb (11.0-16.0) g/dL Hct (34.0-47.0) % MCV (81.0-99.0) fL MCH (27.0-31.0) pg MCHC (33.0-37.0) g/dL RDW (11.5-14.5) % Plt Count (130-400) K/uL MPV (7.2-11.7) fL Neut % (Auto) (50.0-75.0) % Lymph % (Auto) (20.0-40.0) % [place] % (Auto) (0.0-10.0) % Eos % (Auto) (0.0-4.0) % Baso % (Auto) (0.0-2.0) % Neut # (1.8-7.0) K/uL Lymph # (1.0-4.3) K/uL [place] # (0.0-0.8) K/uL Eos # (0.0-0.7) K/uL Baso # (0.0-0.2) K/uL pO2 (30-55) mm/Hg VBG pH (7.32-7.43) VBG pCO2 (40-60) mmHg VBG HCO3 mmol/L VBG Total CO2 (22-28) mmol/L VBG O2 Sat (Calc) (40-65) % VBG Base Excess (0.0-2.0) mmol/L VBG Potassium (3.6-5.2) mmol/L Glucose (65-105) mg/dl Lactate (0.7-2.1) mmol/L Crit Value Called To Crit Value Called By Crit Value Read Back Blood Gas Notified Time Sodium (132-148) mmol/L Potassium (3.6-5.2) mmol/L Chloride (98-107) mmol/L Carbon Dioxide (22-30) mmol/L Anion Gap (10-20) BUN (7-17) mg/dL Creatinine (0.7-1.2) mg/dL Est GFR ( Amer) Est GFR (Non-Af Amer) POC Glucose (mg/dL) 171 H 106 155 H (65-110) mg/dL Random Glucose (65-105) mg/dL Hemoglobin A1c (4.2-6.5) % Calcium (8.6-10.4) mg/dl Phosphorus (2.5-4.5) mg/dL Magnesium (1.6-2.3) mg/dL Total Bilirubin (0.2-1.3) mg/dL AST (14-36) U/L ALT (9-52) U/L Alkaline Phosphatase (38-126) U/L Troponin I (0.00-0.120) ng/mL NT-Pro-B Natriuret Pep (0-450) pg/mL Total Protein (6.3-8.3) g/dL Albumin (3.5-5.0) g/dL Globulin (2.2-3.9) gm/dL Albumin/Globulin Ratio (1.0-2.1) Lipase (23-300) U/L Venous Blood Potassium (3.6-5.2) mmol/L Urine Color (YELLOW) Urine Clarity (Clear) Urine pH (5.0-8.0) Ur Specific [place] (1.003-1.030) Urine Protein (NEGATIVE) mg/dL Urine Glucose (UA) (Normal) mg/dL Urine Ketones (NEGATIVE) mg/dL Urine Blood (NEGATIVE) Urine Nitrate (NEGATIVE) Urine Bilirubin (NEGATIVE) Urine Urobilinogen (0.2-1.0) mg/dL Ur Leukocyte Esterase (Negative) Cheikh/uL Urine WBC (Auto) (0-5) /hpf Urine RBC (Auto) (0-3) /hpf Ur Squamous Epith Cells (0-5) /hpf Urine Bacteria (<OCC) Urine HCG, Qual (NEGATIVE) Serum Ketones (NEGATIVE) 06/19/17 06/19/17 06/19/17 Range/Units 23:45 22:23 21:44 WBC (4.8-10.8) K/uL RBC (3.80-5.20) Mil/uL Hgb (11.0-16.0) g/dL Hct (34.0-47.0) % MCV (81.0-99.0) fL MCH (27.0-31.0) pg MCHC (33.0-37.0) g/dL RDW (11.5-14.5) % Plt Count (130-400) K/uL MPV (7.2-11.7) fL Neut % (Auto) (50.0-75.0) % Lymph % (Auto) (20.0-40.0) % [place] % (Auto) (0.0-10.0) % Eos % (Auto) (0.0-4.0) % Baso % (Auto) (0.0-2.0) % Neut # (1.8-7.0) K/uL Lymph # (1.0-4.3) K/uL [place] # (0.0-0.8) K/uL Eos # (0.0-0.7) K/uL Baso # (0.0-0.2) K/uL pO2 (30-55) mm/Hg VBG pH (7.32-7.43) VBG pCO2 (40-60) mmHg VBG HCO3 mmol/L VBG Total CO2 (22-28) mmol/L VBG O2 Sat (Calc) (40-65) % VBG Base Excess (0.0-2.0) mmol/L VBG Potassium (3.6-5.2) mmol/L Glucose (65-105) mg/dl Lactate (0.7-2.1) mmol/L Crit Value Called To Crit Value Called By Crit Value Read Back Blood Gas Notified Time Sodium (132-148) mmol/L Potassium (3.6-5.2) mmol/L Chloride (98-107) mmol/L Carbon Dioxide (22-30) mmol/L Anion Gap (10-20) BUN (7-17) mg/dL Creatinine (0.7-1.2) mg/dL Est GFR ( Amer) Est GFR (Non-Af Amer) POC Glucose (mg/dL) 153 H 184 H (65-110) mg/dL Random Glucose (65-105) mg/dL Hemoglobin A1c (4.2-6.5) % Calcium (8.6-10.4) mg/dl Phosphorus 1.5 L (2.5-4.5) mg/dL Magnesium 1.7 (1.6-2.3) mg/dL Total Bilirubin (0.2-1.3) mg/dL AST (14-36) U/L ALT (9-52) U/L Alkaline Phosphatase (38-126) U/L Troponin I (0.00-0.120) ng/mL NT-Pro-B Natriuret Pep (0-450) pg/mL Total Protein (6.3-8.3) g/dL Albumin (3.5-5.0) g/dL Globulin (2.2-3.9) gm/dL Albumin/Globulin Ratio (1.0-2.1) Lipase (23-300) U/L Venous Blood Potassium (3.6-5.2) mmol/L Urine Color (YELLOW) Urine Clarity (Clear) Urine pH (5.0-8.0) Ur Specific [place] (1.003-1.030) Urine Protein (NEGATIVE) mg/dL Urine Glucose (UA) (Normal) mg/dL Urine Ketones (NEGATIVE) mg/dL Urine Blood (NEGATIVE) Urine Nitrate (NEGATIVE) Urine Bilirubin (NEGATIVE) Urine Urobilinogen (0.2-1.0) mg/dL Ur Leukocyte Esterase (Negative) Cheikh/uL Urine WBC (Auto) (0-5) /hpf Urine RBC (Auto) (0-3) /hpf Ur Squamous Epith Cells (0-5) /hpf Urine Bacteria (<OCC) Urine HCG, Qual (NEGATIVE) Serum Ketones (NEGATIVE) 06/19/17 06/19/17 06/19/17 Range/Units 21:44 21:44 21:43 WBC (4.8-10.8) K/uL RBC (3.80-5.20) Mil/uL Hgb (11.0-16.0) g/dL Hct (34.0-47.0) % MCV (81.0-99.0) fL MCH (27.0-31.0) pg MCHC (33.0-37.0) g/dL RDW (11.5-14.5) % Plt Count (130-400) K/uL MPV (7.2-11.7) fL Neut % (Auto) (50.0-75.0) % Lymph % (Auto) (20.0-40.0) % [place] % (Auto) (0.0-10.0) % Eos % (Auto) (0.0-4.0) % Baso % (Auto) (0.0-2.0) % Neut # (1.8-7.0) K/uL Lymph # (1.0-4.3) K/uL [place] # (0.0-0.8) K/uL Eos # (0.0-0.7) K/uL Baso # (0.0-0.2) K/uL pO2 (30-55) mm/Hg VBG pH (7.32-7.43) VBG pCO2 (40-60) mmHg VBG HCO3 mmol/L VBG Total CO2 (22-28) mmol/L VBG O2 Sat (Calc) (40-65) % VBG Base Excess (0.0-2.0) mmol/L VBG Potassium (3.6-5.2) mmol/L Glucose (65-105) mg/dl Lactate (0.7-2.1) mmol/L Crit Value Called To Crit Value Called By Crit Value Read Back Blood Gas Notified Time Sodium 128 L (132-148) mmol/L Potassium 3.3 L (3.6-5.2) mmol/L Chloride 107 (98-107) mmol/L Carbon Dioxide 7 L* (22-30) mmol/L Anion Gap 16 (10-20) BUN 10 (7-17) mg/dL Creatinine 0.3 L (0.7-1.2) mg/dL Est GFR ( Amer) > 60 Est GFR (Non-Af Amer) > 60 POC Glucose (mg/dL) 226 H (65-110) mg/dL Random Glucose 264 H (65-105) mg/dL Hemoglobin A1c 16.6 H (4.2-6.5) % Calcium 5.9 L* (8.6-10.4) mg/dl Phosphorus 1.5 L (2.5-4.5) mg/dL Magnesium 1.7 (1.6-2.3) mg/dL Total Bilirubin 0.3 (0.2-1.3) mg/dL AST 13 L (14-36) U/L ALT 16 (9-52) U/L Alkaline Phosphatase 41 (38-126) U/L Troponin I < 0.0120 (0.00-0.120) ng/mL NT-Pro-B Natriuret Pep 38.9 (0-450) pg/mL Total Protein 5.3 L (6.3-8.3) g/dL Albumin 2.7 L D (3.5-5.0) g/dL Globulin 2.6 (2.2-3.9) gm/dL Albumin/Globulin Ratio 1.0 (1.0-2.1) Lipase (23-300) U/L Venous Blood Potassium (3.6-5.2) mmol/L Urine Color (YELLOW) Urine Clarity (Clear) Urine pH (5.0-8.0) Ur Specific [place] (1.003-1.030) Urine Protein (NEGATIVE) mg/dL Urine Glucose (UA) (Normal) mg/dL Urine Ketones (NEGATIVE) mg/dL Urine Blood (NEGATIVE) Urine Nitrate (NEGATIVE) Urine Bilirubin (NEGATIVE) Urine Urobilinogen (0.2-1.0) mg/dL Ur Leukocyte Esterase (Negative) Cheikh/uL Urine WBC (Auto) (0-5) /hpf Urine RBC (Auto) (0-3) /hpf Ur Squamous Epith Cells (0-5) /hpf Urine Bacteria (<OCC) Urine HCG, Qual (NEGATIVE) Serum Ketones Moderate (NEGATIVE) 06/19/17 06/19/17 06/19/17 Range/Units 20:36 19:28 19:00 WBC (4.8-10.8) K/uL RBC (3.80-5.20) Mil/uL Hgb (11.0-16.0) g/dL Hct (34.0-47.0) % MCV (81.0-99.0) fL MCH (27.0-31.0) pg MCHC (33.0-37.0) g/dL RDW (11.5-14.5) % Plt Count (130-400) K/uL MPV (7.2-11.7) fL Neut % (Auto) (50.0-75.0) % Lymph % (Auto) (20.0-40.0) % [place] % (Auto) (0.0-10.0) % Eos % (Auto) (0.0-4.0) % Baso % (Auto) (0.0-2.0) % Neut # (1.8-7.0) K/uL Lymph # (1.0-4.3) K/uL [place] # (0.0-0.8) K/uL Eos # (0.0-0.7) K/uL Baso # (0.0-0.2) K/uL pO2 29 L (30-55) mm/Hg VBG pH 7.08 L* (7.32-7.43) VBG pCO2 25 L (40-60) mmHg VBG HCO3 6.7 mmol/L VBG Total CO2 8.2 L (22-28) mmol/L VBG O2 Sat (Calc) 65.3 H (40-65) % VBG Base Excess -21.1 L (0.0-2.0) mmol/L VBG Potassium 3.3 L (3.6-5.2) mmol/L Glucose 358 H (65-105) mg/dl Lactate 0.8 (0.7-2.1) mmol/L Crit Value Called To Kike choudhary Crit Value Called By Le barkley Crit Value Read Back Y Blood Gas Notified Time 1902 Sodium 132.0 (132-148) mmol/L Potassium (3.6-5.2) mmol/L Chloride 102.0 (98-107) mmol/L Carbon Dioxide (22-30) mmol/L Anion Gap (10-20) BUN (7-17) mg/dL Creatinine (0.7-1.2) mg/dL Est GFR ( Amer) Est GFR (Non-Af Amer) POC Glucose (mg/dL) 228 H 239 H (65-110) mg/dL Random Glucose (65-105) mg/dL Hemoglobin A1c (4.2-6.5) % Calcium (8.6-10.4) mg/dl Phosphorus (2.5-4.5) mg/dL Magnesium (1.6-2.3) mg/dL Total Bilirubin (0.2-1.3) mg/dL AST (14-36) U/L ALT (9-52) U/L Alkaline Phosphatase (38-126) U/L Troponin I (0.00-0.120) ng/mL NT-Pro-B Natriuret Pep (0-450) pg/mL Total Protein (6.3-8.3) g/dL Albumin (3.5-5.0) g/dL Globulin (2.2-3.9) gm/dL Albumin/Globulin Ratio (1.0-2.1) Lipase (23-300) U/L Venous Blood Potassium 3.3 L (3.6-5.2) mmol/L Urine Color (YELLOW) Urine Clarity (Clear) Urine pH (5.0-8.0) Ur Specific [place] (1.003-1.030) Urine Protein (NEGATIVE) mg/dL Urine Glucose (UA) (Normal) mg/dL Urine Ketones (NEGATIVE) mg/dL Urine Blood (NEGATIVE) Urine Nitrate (NEGATIVE) Urine Bilirubin (NEGATIVE) Urine Urobilinogen (0.2-1.0) mg/dL Ur Leukocyte Esterase (Negative) Cheikh/uL Urine WBC (Auto) (0-5) /hpf Urine RBC (Auto) (0-3) /hpf Ur Squamous Epith Cells (0-5) /hpf Urine Bacteria (<OCC) Urine HCG, Qual (NEGATIVE) Serum Ketones (NEGATIVE) 06/19/17 06/19/17 06/19/17 Range/Units 18:42 18:42 18:42 WBC 8.8 D (4.8-10.8) K/uL RBC 4.67 (3.80-5.20) Mil/uL Hgb 14.5 (11.0-16.0) g/dL Hct 42.9 (34.0-47.0) % MCV 91.8 (81.0-99.0) fL MCH 30.9 (27.0-31.0) pg MCHC 33.7 (33.0-37.0) g/dL RDW 13.2 (11.5-14.5) % Plt Count 252 D (130-400) K/uL MPV 9.7 (7.2-11.7) fL Neut % (Auto) 73.8 (50.0-75.0) % Lymph % (Auto) 21.5 (20.0-40.0) % [place] % (Auto) 3.9 (0.0-10.0) % Eos % (Auto) 0.2 (0.0-4.0) % Baso % (Auto) 0.6 (0.0-2.0) % Neut # 6.5 (1.8-7.0) K/uL Lymph # 1.9 (1.0-4.3) K/uL [place] # 0.3 (0.0-0.8) K/uL Eos # 0.0 (0.0-0.7) K/uL Baso # 0.0 (0.0-0.2) K/uL pO2 (30-55) mm/Hg VBG pH (7.32-7.43) VBG pCO2 (40-60) mmHg VBG HCO3 mmol/L VBG Total CO2 (22-28) mmol/L VBG O2 Sat (Calc) (40-65) % VBG Base Excess (0.0-2.0) mmol/L VBG Potassium (3.6-5.2) mmol/L Glucose (65-105) mg/dl Lactate (0.7-2.1) mmol/L Crit Value Called To Crit Value Called By Crit Value Read Back Blood Gas Notified Time Sodium 126 L (132-148) mmol/L Potassium 3.2 L (3.6-5.2) mmol/L Chloride 103 (98-107) mmol/L Carbon Dioxide 6 L* D (22-30) mmol/L Anion Gap 20 (10-20) BUN 14 (7-17) mg/dL Creatinine 0.5 L (0.7-1.2) mg/dL Est GFR ( Amer) > 60 Est GFR (Non-Af Amer) > 60 POC Glucose (mg/dL) (65-110) mg/dL Random Glucose 333 H (65-105) mg/dL Hemoglobin A1c (4.2-6.5) % Calcium 7.1 L (8.6-10.4) mg/dl Phosphorus (2.5-4.5) mg/dL Magnesium (1.6-2.3) mg/dL Total Bilirubin 0.4 (0.2-1.3) mg/dL AST 13 L (14-36) U/L ALT 18 (9-52) U/L Alkaline Phosphatase 57 (38-126) U/L Troponin I (0.00-0.120) ng/mL NT-Pro-B Natriuret Pep (0-450) pg/mL Total Protein 6.3 (6.3-8.3) g/dL Albumin 3.5 D (3.5-5.0) g/dL Globulin 2.8 (2.2-3.9) gm/dL Albumin/Globulin Ratio 1.2 (1.0-2.1) Lipase 153 (23-300) U/L Venous Blood Potassium (3.6-5.2) mmol/L Urine Color Straw (YELLOW) Urine Clarity Clear (Clear) Urine pH 6.0 (5.0-8.0) Ur Specific [place] 1.026 (1.003-1.030) Urine Protein 1+ H (NEGATIVE) mg/dL Urine Glucose (UA) 3+ H (Normal) mg/dL Urine Ketones 2+ H (NEGATIVE) mg/dL Urine Blood 2+ H (NEGATIVE) Urine Nitrate Negative (NEGATIVE) Urine Bilirubin Negative (NEGATIVE) Urine Urobilinogen Normal (0.2-1.0) mg/dL Ur Leukocyte Esterase Neg (Negative) Cheikh/uL Urine WBC (Auto) 4 (0-5) /hpf Urine RBC (Auto) 17 H (0-3) /hpf Ur Squamous Epith Cells 2 (0-5) /hpf Urine Bacteria Rare (<OCC) Urine HCG, Qual Negative (NEGATIVE) Serum Ketones Moderate (NEGATIVE) Laboratory Results - last 24 hr 06/19/17 06/19/17 06/19/17 18:42 18:42 18:42 WBC 8.8 D RBC 4.67 Hgb 14.5 Hct 42.9 MCV 91.8 MCH 30.9 MCHC 33.7 RDW 13.2 Plt Count 252 D MPV 9.7 Neut % (Auto) 73.8 Lymph % (Auto) 21.5 [place] % (Auto) 3.9 Eos % (Auto) 0.2 Baso % (Auto) 0.6 Neut # 6.5 Lymph # 1.9 [place] # 0.3 Eos # 0.0 Baso # 0.0 pO2 VBG pH VBG pCO2 VBG HCO3 VBG Total CO2 VBG O2 Sat (Calc) VBG Base Excess VBG Potassium Glucose Lactate Crit Value Called To Crit Value Called By Crit Value Read Back Blood Gas Notified Time Sodium 126 L Potassium 3.2 L Chloride 103 Carbon Dioxide 6 L* D Anion Gap 20 BUN 14 Creatinine 0.5 L Est GFR ( Amer) > 60 Est GFR (Non-Af Amer) > 60 POC Glucose (mg/dL) Random Glucose 333 H Hemoglobin A1c Calcium 7.1 L Phosphorus Magnesium Total Bilirubin 0.4 AST 13 L ALT 18 Alkaline Phosphatase 57 Troponin I NT-Pro-B Natriuret Pep Total Protein 6.3 Albumin 3.5 D Globulin 2.8 Albumin/Globulin Ratio 1.2 Lipase 153 Venous Blood Potassium Urine Color Straw Urine Clarity Clear Urine pH 6.0 Ur Specific [place] 1.026 Urine Protein 1+ H Urine Glucose (UA) 3+ H Urine Ketones 2+ H Urine Blood 2+ H Urine Nitrate Negative Urine Bilirubin Negative Urine Urobilinogen Normal Ur Leukocyte Esterase Neg Urine WBC (Auto) 4 Urine RBC (Auto) 17 H Ur Squamous Epith Cells 2 Urine Bacteria Rare Urine HCG, Qual Negative Serum Ketones Moderate 06/19/17 06/19/17 06/19/17 19:00 19:28 20:36 WBC RBC Hgb Hct MCV MCH MCHC RDW Plt Count MPV Neut % (Auto) Lymph % (Auto) [place] % (Auto) Eos % (Auto) Baso % (Auto) Neut # Lymph # [place] # Eos # Baso # pO2 29 L VBG pH 7.08 L* VBG pCO2 25 L VBG HCO3 6.7 VBG Total CO2 8.2 L VBG O2 Sat (Calc) 65.3 H VBG Base Excess -21.1 L VBG Potassium 3.3 L Glucose 358 H Lactate 0.8 Crit Value Called To Kike choudhary Crit Value Called By Le rt Crit Value Read Back Y Blood Gas Notified Time 1902 Sodium 132.0 Potassium Chloride 102.0 Carbon Dioxide Anion Gap BUN Creatinine Est GFR ( Amer) Est GFR (Non-Af Amer) POC Glucose (mg/dL) 239 H 228 H Random Glucose Hemoglobin A1c Calcium Phosphorus Magnesium Total Bilirubin AST ALT Alkaline Phosphatase Troponin I NT-Pro-B Natriuret Pep Total Protein Albumin Globulin Albumin/Globulin Ratio Lipase Venous Blood Potassium 3.3 L Urine Color Urine Clarity Urine pH Ur Specific [place] Urine Protein Urine Glucose (UA) Urine Ketones Urine Blood Urine Nitrate Urine Bilirubin Urine Urobilinogen Ur Leukocyte Esterase Urine WBC (Auto) Urine RBC (Auto) Ur Squamous Epith Cells Urine Bacteria Urine HCG, Qual Serum Ketones 06/19/17 06/19/17 06/19/17 21:43 21:44 21:44 WBC RBC Hgb Hct MCV MCH MCHC RDW Plt Count MPV Neut % (Auto) Lymph % (Auto) [place] % (Auto) Eos % (Auto) Baso % (Auto) Neut # Lymph # [place] # Eos # Baso # pO2 VBG pH VBG pCO2 VBG HCO3 VBG Total CO2 VBG O2 Sat (Calc) VBG Base Excess VBG Potassium Glucose Lactate Crit Value Called To Crit Value Called By Crit Value Read Back Blood Gas Notified Time Sodium 128 L Potassium 3.3 L Chloride 107 Carbon Dioxide 7 L* Anion Gap 16 BUN 10 Creatinine 0.3 L Est GFR ( Amer) > 60 Est GFR (Non-Af Amer) > 60 POC Glucose (mg/dL) 226 H Random Glucose 264 H Hemoglobin A1c 16.6 H Calcium 5.9 L* Phosphorus 1.5 L Magnesium 1.7 Total Bilirubin 0.3 AST 13 L ALT 16 Alkaline Phosphatase 41 Troponin I < 0.0120 NT-Pro-B Natriuret Pep 38.9 Total Protein 5.3 L Albumin 2.7 L D Globulin 2.6 Albumin/Globulin Ratio 1.0 Lipase Venous Blood Potassium Urine Color Urine Clarity Urine pH Ur Specific [place] Urine Protein Urine Glucose (UA) Urine Ketones Urine Blood Urine Nitrate Urine Bilirubin Urine Urobilinogen Ur Leukocyte Esterase Urine WBC (Auto) Urine RBC (Auto) Ur Squamous Epith Cells Urine Bacteria Urine HCG, Qual Serum Ketones Moderate 06/19/17 06/19/17 06/19/17 21:44 22:23 23:45 WBC RBC Hgb Hct MCV MCH MCHC RDW Plt Count MPV Neut % (Auto) Lymph % (Auto) [place] % (Auto) Eos % (Auto) Baso % (Auto) Neut # Lymph # [place] # Eos # Baso # pO2 VBG pH VBG pCO2 VBG HCO3 VBG Total CO2 VBG O2 Sat (Calc) VBG Base Excess VBG Potassium Glucose Lactate Crit Value Called To Crit Value Called By Crit Value Read Back Blood Gas Notified Time Sodium Potassium Chloride Carbon Dioxide Anion Gap BUN Creatinine Est GFR ( Amer) Est GFR (Non-Af Amer) POC Glucose (mg/dL) 184 H 153 H Random Glucose Hemoglobin A1c Calcium Phosphorus 1.5 L Magnesium 1.7 Total Bilirubin AST ALT Alkaline Phosphatase Troponin I NT-Pro-B Natriuret Pep Total Protein Albumin Globulin Albumin/Globulin Ratio Lipase Venous Blood Potassium Urine Color Urine Clarity Urine pH Ur Specific [place] Urine Protein Urine Glucose (UA) Urine Ketones Urine Blood Urine Nitrate Urine Bilirubin Urine Urobilinogen Ur Leukocyte Esterase Urine WBC (Auto) Urine RBC (Auto) Ur Squamous Epith Cells Urine Bacteria Urine HCG, Qual Serum Ketones 06/20/17 06/20/17 06/20/17 00:39 01:38 03:03 WBC RBC Hgb Hct MCV MCH MCHC RDW Plt Count MPV Neut % (Auto) Lymph % (Auto) [place] % (Auto) Eos % (Auto) Baso % (Auto) Neut # Lymph # [place] # Eos # Baso # pO2 VBG pH VBG pCO2 VBG HCO3 VBG Total CO2 VBG O2 Sat (Calc) VBG Base Excess VBG Potassium Glucose Lactate Crit Value Called To Crit Value Called By Crit Value Read Back Blood Gas Notified Time Sodium Potassium Chloride Carbon Dioxide Anion Gap BUN Creatinine Est GFR ( Amer) Est GFR (Non-Af Amer) POC Glucose (mg/dL) 155 H 106 171 H Random Glucose Hemoglobin A1c Calcium Phosphorus Magnesium Total Bilirubin AST ALT Alkaline Phosphatase Troponin I NT-Pro-B Natriuret Pep Total Protein Albumin Globulin Albumin/Globulin Ratio Lipase Venous Blood Potassium Urine Color Urine Clarity Urine pH Ur Specific [place] Urine Protein Urine Glucose (UA) Urine Ketones Urine Blood Urine Nitrate Urine Bilirubin Urine Urobilinogen Ur Leukocyte Esterase Urine WBC (Auto) Urine RBC (Auto) Ur Squamous Epith Cells Urine Bacteria Urine HCG, Qual Serum Ketones 06/20/17 06/20/17 06/20/17 04:16 04:27 04:27 WBC 6.4 RBC 4.39 Hgb 13.5 Hct 39.0 MCV 88.8 D MCH 30.8 MCHC 34.7 RDW 12.9 Plt Count 229 MPV 9.1 Neut % (Auto) Lymph % (Auto) [place] % (Auto) Eos % (Auto) Baso % (Auto) Neut # Lymph # [place] # Eos # Baso # pO2 VBG pH VBG pCO2 VBG HCO3 VBG Total CO2 VBG O2 Sat (Calc) VBG Base Excess VBG Potassium Glucose Lactate Crit Value Called To Crit Value Called By Crit Value Read Back Blood Gas Notified Time Sodium 131 L Potassium 4.8 Chloride 113 H Carbon Dioxide 14 L Anion Gap 9 L BUN 6 L Creatinine 0.3 L Est GFR ( Amer) > 60 Est GFR (Non-Af Amer) > 60 POC Glucose (mg/dL) 158 H Random Glucose 165 H Hemoglobin A1c Calcium 6.5 L Phosphorus 1.7 L Magnesium 2.2 Total Bilirubin 0.5 AST 17 ALT 15 Alkaline Phosphatase 31 L D Troponin I NT-Pro-B Natriuret Pep Total Protein 5.6 L Albumin 2.8 L Globulin 2.8 Albumin/Globulin Ratio 1.0 Lipase Venous Blood Potassium Urine Color Urine Clarity Urine pH Ur Specific [place] Urine Protein Urine Glucose (UA) Urine Ketones Urine Blood Urine Nitrate Urine Bilirubin Urine Urobilinogen Ur Leukocyte Esterase Urine WBC (Auto) Urine RBC (Auto) Ur Squamous Epith Cells Urine Bacteria Urine HCG, Qual Serum Ketones 06/20/17 06/20/17 06/20/17 05:13 05:24 06:13 WBC RBC Hgb Hct MCV MCH MCHC RDW Plt Count MPV Neut % (Auto) Lymph % (Auto) [place] % (Auto) Eos % (Auto) Baso % (Auto) Neut # Lymph # [place] # Eos # Baso # pO2 VBG pH VBG pCO2 VBG HCO3 VBG Total CO2 VBG O2 Sat (Calc) VBG Base Excess VBG Potassium Glucose Lactate Crit Value Called To Crit Value Called By Crit Value Read Back Blood Gas Notified Time Sodium Potassium Chloride Carbon Dioxide Anion Gap BUN Creatinine Est GFR ( Amer) Est GFR (Non-Af Amer) POC Glucose (mg/dL) 148 H 152 H 154 H Random Glucose Hemoglobin A1c Calcium Phosphorus Magnesium Total Bilirubin AST ALT Alkaline Phosphatase Troponin I NT-Pro-B Natriuret Pep Total Protein Albumin Globulin Albumin/Globulin Ratio Lipase Venous Blood Potassium Urine Color Urine Clarity Urine pH Ur Specific [place] Urine Protein Urine Glucose (UA) Urine Ketones Urine Blood Urine Nitrate Urine Bilirubin Urine Urobilinogen Ur Leukocyte Esterase Urine WBC (Auto) Urine RBC (Auto) Ur Squamous Epith Cells Urine Bacteria Urine HCG, Qual Serum Ketones 06/20/17 06/20/17 06/20/17 07:03 08:16 11:27 WBC RBC Hgb Hct MCV MCH MCHC RDW Plt Count MPV Neut % (Auto) Lymph % (Auto) [place] % (Auto) Eos % (Auto) Baso % (Auto) Neut # Lymph # [place] # Eos # Baso # pO2 VBG pH VBG pCO2 VBG HCO3 VBG Total CO2 VBG O2 Sat (Calc) VBG Base Excess VBG Potassium Glucose Lactate Crit Value Called To Crit Value Called By Crit Value Read Back Blood Gas Notified Time Sodium Potassium Chloride Carbon Dioxide Anion Gap BUN Creatinine Est GFR ( Amer) Est GFR (Non-Af Amer) POC Glucose (mg/dL) 139 H 164 H 364 H Random Glucose Hemoglobin A1c Calcium Phosphorus Magnesium Total Bilirubin AST ALT Alkaline Phosphatase Troponin I NT-Pro-B Natriuret Pep Total Protein Albumin Globulin Albumin/Globulin Ratio Lipase Venous Blood Potassium Urine Color Urine Clarity Urine pH Ur Specific [place] Urine Protein Urine Glucose (UA) Urine Ketones Urine Blood Urine Nitrate Urine Bilirubin Urine Urobilinogen Ur Leukocyte Esterase Urine WBC (Auto) Urine RBC (Auto) Ur Squamous Epith Cells Urine Bacteria Urine HCG, Qual Serum Ketones EKG/Cardiology Studies: Cardiology / EKG Studies 06/19/17 20:26 EKG [ELECTROCARDIOGRAM] Stat Comment: Mode Of Transportation: PORTABLE Reason For Exam: eval CAD Fingerstick Blood Sugar Results: 364 Review of Systems - Review of Systems All systems: reviewed and no additional remarkable complaints except (as per HPI ) Critical Care Progress Note - Nutrition Nutrition: Nutrition Category Date Time Status Diabetic [Consistent Carbohydrate] [DIET] Diets 06/20/17 Breakfast Active Assessment/Plan - Assessment and Plan (Free Text) Assessment: 42 y/o F Diabetic Ketoacidosis Hypocalcemia Hypophosphatotemia Hyponatremia 1st degree AV block h/o Uncontrolled Insulin-dependent DM Plan: Disposition: Pt was admitted to ICU for management of DKA. Pt off insulin drip and stable for transfer to medical floor. Social work consult ordered. Diabetic education consult ordered. Neuro: AAOx3. No focal deficits. Sedation: n/a Psych: n/a Cardio: EKG ordered showing 1st degree AV block. RRR on telemetry. F/u lipid panel.Simvastatin 10 mg PO HS. Pulm: VBG: pO2 29// pH 7.08// pCO2 25// HCO3 6.7 Endo: Discontinued insulin drip and started pt on Lantus 10 units at 9 am, and kept maintenance fluids at D5 NS at 125 ml/hr. HgbA1C 16.6. Endocrine consult ordered, TSH, T4, Lipid Panel. Diabetic diet ordered. GI: Lipase 153. AST 17, ALT 15. F/u lipid panel.Simvastatin 10 mg PO HS. : Urine protein 1+, glucose 3+, ketones 2+, Blood 2+, nitrate negative Renal: Na 131// K 4.8// Cl 113// HCO3 14// BUN 6// Cr 0.3. Hypocalcemia corrected w/ Calcium Gluconate 3g. Hypophosphotemia corrected w/ 15 mmol at 50 ml/hour. Hyponatremia secondary to hyperglycemia has resolved. I/O: +259 Heme/Onc: WBC 6.4// Hgb13.5// Hct 39.0// Plt 229 MSK: no issues. ID: no issues f/u AM CBC Prophylaxis: DVT: Heparin SC Q8. SCDs GI: Protonix 40 mg IVP Daily
[2017-06-20] MEDS: (Novolin 70/30) NPH/Regular 70/30 Units/ml 10 ml vial SC SCH (17:30)
[2017-06-20] MEDS: (Novolin N) Insulin Human Isophane (NPH) 100 u/ml 10 ml vial SC SCH (21:25)
[2017-06-20 21:43] LABS: CK-MB 0.76 ng/mL (0.0-3.38)
--- NOTE | 2017-06-21 00:01 | CARD ---
APPROVED REPORT EKG Measurement Heart [id number] <Conclusion> Sinus rhythm with 1st degree AV block Low voltage QRS Borderline ECG
[2017-06-21] MEDS: Sodium Chloride 0.9% 1,000 ML IV SCH ×2 (07:00→17:57)
--- NOTE | 2017-06-21 07:33 | CP.PCM.PN ---
Subjective - Date & Time of Evaluation Date of Evaluation: 06/21/17 Time of Evaluation: 07:00 - Subjective Subjective: PGY1-Medicine Note- Dr. Bolanos's Service Patient seen and examined at bedside and in no acute distress. Patient says she has a headache which she rates 5/10. Patient denies any chest pain, shortness of breath, abdominal pain, nausea, vomiting, constipation, or diarrhea. Patient says she knows how to use her insulin, but it is hard for her to get refills because she works from 10am to 6pm and has no time to go to her doctor. Objective - Vital Signs/Intake and Output Vital Signs (last 24 hours): Temp Pulse Resp BP Pulse Ox 97.6 F 66 18 95/60 L 99 06/21/17 00:30 06/21/17 00:30 06/21/17 00:30 06/21/17 00:30 06/21/17 00:30 Intake and Output: 06/21/17 06/21/17 06:59 18:59 Intake Total 800 Balance 800 - Medications Medications: Current Medications Acetaminophen (Tylenol 325mg Tab) 650 mg PO Q6 PRN PRN Reason: pain, fever Last Admin: 06/20/17 22:35 Dose: 650 mg Famotidine (Pepcid) 20 mg PO BID [facility] Last Admin: 06/20/17 18:31 Dose: 20 mg Heparin Sodium (Porcine) (Heparin) 5,000 units SC Q8 [facility] Last Admin: 06/21/17 05:30 Dose: 5,000 units Sodium Chloride (Sodium Chloride 0.9%) 1,000 mls @ 100 mls/hr IV .Q10H [facility] Last Admin: 06/20/17 20:21 Dose: 100 mls/hr Insulin Glargine (Lantus) 10 unit SC DAILY@0900 [facility] Last Admin: 06/20/17 08:44 Dose: 10 unit Insulin Human Isoph/Insulin Regular (Novolin 70/30 (70/30 Units/Ml) 10 Ml) 24 units SC ACB [facility] Insulin Human Isoph/Insulin Regular (Novolin 70/30 (70/30 Units/Ml) 10 Ml) 16 units SC ACD [facility] Last Admin: 06/20/17 17:30 Dose: 16 units Insulin Human NPH (Novolin N) 10 unit SC HS [facility] Last Admin: 06/20/17 21:25 Dose: 10 unit Insulin Human Regular (Novolin R) 0 unit SC ACHS [facility] PRN Reason: Protocol Last Admin: 06/20/17 21:26 Dose: Not Given Rosuvastatin Calcium (Crestor) 5 mg PO HS [facility] Last Admin: 06/20/17 21:25 Dose: 5 mg - Labs Labs: 06/20/17 04:27 06/20/17 04:27 - Constitutional Appears: Non-toxic, No Acute Distress - Head Exam Head Exam: ATRAUMATIC, NORMAL INSPECTION, NORMOCEPHALIC - Eye Exam Eye Exam: EOMI, Normal appearance - Respiratory Exam Respiratory Exam: Clear to Ausculation Bilateral, NORMAL BREATHING PATTERN. absent: Rales, Rhonchi, Wheezes, Respiratory Distress, Stridor - Cardiovascular Exam Cardiovascular Exam: REGULAR RHYTHM, RRR, +S1, +S2 - GI/Abdominal Exam GI & Abdominal Exam: Soft, Normal Bowel Sounds. absent: Tenderness - Extremities Exam Extremities Exam: Normal Inspection. absent: Pedal Edema - Neurological Exam Neurological Exam: Alert, Awake, Oriented x3 - Psychiatric Exam Psychiatric exam: Normal Affect, Normal Mood - Skin Skin Exam: Intact, Normal Color, Warm Assessment and Plan - Assessment and Plan (Free Text) Assessment: DKA Likely secondary to not taking her medications at home Resolving ICU Team has discontinued Insulin Drip, started patient on Lantus 10 Units SC at 9 AM, and kept maintenance fluids at D5 1/2 NS at 125 ml/hour Consultation with Rabbler Dr. Sheridan has been ordered for more affordable Insulin regimen as patient will not be able to afford the Lantus: Novolin 70/30? Patient on Lantus 10 u sc daily Novolin 70/30 16u SC ACD Novolin 70/30 24u SC ACB Novolin 10 u SC HS HgA1C: 16.6 TSH, T4, Lipid Panel Crestor 5 mg PO HS for now and discharge on Simvastatin 10 mg PO HS HOLD off on THUY I for now (Lisinopril 5 mg PO 1x/day) as blood pressure is at the low end of normal HLD Crestor 5mg po HS Hypocalcemia resolved Patient has received Calcium Gluconate 3 g since admission Hypophosphotemia Sodium Phosphate 15 mmol at 50 ml/hour to finish at 1 PM. It has improved Hyponatremia Could have secondary to the Hyperglycemia It has improved Hypokalemia K:2.5 Kdur 40meq x3 given KCl IVPB 20meq x2 monitor Abdominal Pain Periumbilical with Vomting Could have been secondary to the DKA This has resolved C/O Palpitations This has resolved EKG shows 1st AV Block at 77 bpm C/O SOB This has resolved C/O Constipation She had a small bowel movement this morning Monitor Prophylaxis Heparin 5,000 Units SC Q8H Pepcid 20 mg PO 2x/day Diabetic Diet Diabetic Counseling Global Program Manager consult to help patient with her medications
[2017-06-21 08:24] LABS: BASO % 0.3 % (0.0-2.0); EOS # 0.1 K/uL (0.0-0.7); EOS % 1.1 % (0.0-4.0); HEMOGLOBIN 12.1 g/dL (11.0-16.0); LYMPH # 2.2 K/uL (1.0-4.3); LYMPH % 48.1 % (20.0-40.0); MEAN CELL VOLUME 88.6 fL (81.0-99.0); MEAN CORPUSCULAR HEMOGLOBIN 30.9 pg (27.0-31.0); MEAN CORPUSCULAR HGB CONC 34.8 g/dL (33.0-37.0); MEAN PLATELET VOLUME 9.2 fL (7.2-11.7); MONO # 0.4 K/uL (0.0-0.8); NEUT # 1.9 K/uL (1.8-7.0); NEUT % 41.5 % (50.0-75.0); NRBC % 0.1 % (0.0-2.0); RBC 3.9 Mil/uL (3.80-5.20); RED CELL DISTRIBUTION WIDTH 12.9 % (11.5-14.5); WHITE BLOOD COUNT 4.5 K/uL (4.8-10.8)
[2017-06-21] MEDS: (Novolin 70/30) NPH/Regular 70/30 Units/ml 10 ml vial SC SCH ×2 (08:38→17:56)
[2017-06-21] MEDS: (Novolin R) Insulin Human Regular 100 units/ml vial SC SCH ×4 (08:38→21:13)
--- NOTE | 2017-06-21 08:38 | CON ---
DATE: ENDOCRINOLOGY CONSULTATION LOCATION: ICU room 3. HISTORY OF PRESENT ILLNESS: This is a 42-year-old female with known history of type 2 insulin-requiring diabetes, apparently running out of her medication supplies over the last 2 months or so prior to admission and presenting here with diabetic ketoacidosis and dehydration and is now being referred for diabetic evaluation and management. PAST MEDICAL HISTORY: She was apparently using metformin at 1 g b.i.d. with Humulin 70/30 at 10 units t.i.d. before meals. History of hypertension and dyslipidemia. FAMILY HISTORY: Positive for diabetes, hypertension. SOCIAL HISTORY: The patient has a supportive family. No known substance use. Works several part-time jobs as noted. REVIEW OF SYSTEMS: Admits with generalized body weakness with increasing hypersomnolence and lethargy with episodic bouts of dizziness and lightheadedness. No chest pains or palpitations or PNDs. Her oral intake has been variable with nausea, dyspepsia and marked polyuria, nocturia and polydipsia and about a 5-pound or so weight loss. PHYSICAL EXAMINATION: GENERAL: This is an average-built female, in no apparent distress. VITAL SIGNS: Blood pressure 130/80, pulse of 70 beats per minute and regular, temperature 98, respirations 20. Height is 5 feet, weight is 110 pounds. HEENT: Head normocephalic. Eyes anicteric with pink conjunctivae. Funduscopy not possible at this time. Ears, nose, and throat otherwise normal. NECK: Supple. Thyroid gland is normal in size. No carotid bruits or any cervical adenopathy. CARDIOPULMONARY: Some adynamic precordium. S1, S2 is rapid and regular. LUNGS: Clear to auscultation. ABDOMEN: Flat, soft with positive bowel sounds. EXTREMITIES: No peripheral edema, pulses are +2 bilaterally. LABORATORY DATA: The latest chemistries showed a BUN of 6, sodium 131, potassium 4.8, chloride 113, CO2 of 14, glucose 165, and creatinine 0.3. Her hemoglobin A1c is 16.6%, indicative of very poor suboptimal metabolic control of her diabetic condition. Prior to this admission, her glucose levels have ranged from 139 to 164 mg/dL. ASSESSMENT: This is a 42-year-old female with uncontrolled and decompensated type 2 insulin-requiring diabetes, presenting here with diabetic ketoacidosis and dehydration and is now being referred for diabetic evaluation and management and there is a very strong component of drug omission at this time with also lack of medical insurance as noted thereof. PLAN OF MANAGEMENT: We will initiate right away the combination of premixed insulin regimen and basal insulin using the conventional and more affordable insulin preparations as noted. We will start her with Novolin 70/30 given as 24 units a.c. breakfast and 16 units a.c dinner to start today. We will also add Novolin NPH given as 10 units subcutaneous at bedtime daily to start tonight. We will modify the coverage scale to obviate hypoglycemia and detailed orders have been given. We will follow and advise accordingly. Susanne Ward MD
[2017-06-21] MEDS: (Lantus) Insulin Glargine, Recombinant SC SCH (09:00)
[2017-06-21 09:05] LABS: ALBUMIN 2.4 g/dL (3.5-5.0); ALT/SGPT 25 U/L (9-52); AST/SGOT 13 U/L (14-36); BLOOD UREA NITROGEN 9 mg/dL (7-17); CALCIUM 6.4 mg/dl (8.6-10.4); GFR AFRICAN-AMERICAN > 60; GFR NON-AFRICAN AMERICAN > 60; MAGNESIUM 1.9 mg/dL (1.6-2.3)
[2017-06-21] MEDS: Potassium Chloride 20 mEq ER Tab PO SCH ×3 (10:06→17:56)
--- NOTE | 2017-06-21 12:37 | PN ---
DATE: ENDOCRINOLOGY FOLLOWUP NOTE LOCATION: Room 658. SUBJECTIVE: This is a 42-year-old female with recent uncontrolled type 2 insulin-requiring diabetes, presenting here with diabetic ketoacidosis and dehydration and is now being followed closely for metabolic management. She has improved clinically and metabolically as noted thereof although the oral intake remained quite variable as per the nursing staff. Her latest glucose levels have ranged from 113 to 182 and 266 mg/dL. Her latest chemistries showed a BUN of 9, sodium 136, potassium 2.5, chloride 107, CO2 of 26, glucose 112 and creatinine 0.3. PLAN: So at this time, we will continue the vigorous IV hydration as ordered and add potassium supplementation as given. We will also continue the same basal and premixed insulin regimen to allow for dose equilibration and keep her on the Novolin 70/30, which is a more affordable conventional insulin at the same dose and trending 4 units a.c. breakfast and 16 units a.c. dinner to start today as ordered. We will continue the basal insulin given as NPH at 10 units subcu at bedtime daily as given. We will titrate incrementally as indicated to optimize metabolic control. We will follow. Susanne Ward MD
[2017-06-21 19:42] LABS: BLOOD UREA NITROGEN 10 mg/dL (7-17); CALCIUM 7.3 mg/dl (8.6-10.4); GFR AFRICAN-AMERICAN > 60; GFR NON-AFRICAN AMERICAN > 60
[2017-06-21] MEDS: (Novolin N) Insulin Human Isophane (NPH) 100 u/ml 10 ml vial SC SCH (21:18)
[2017-06-22 01:58] VITALS: RESP 20
[2017-06-22] MEDS: Sodium Chloride 0.9% 1,000 ML IV SCH ×2 (02:15→10:29)
[2017-06-22 07:30] LABS: BASO % 0.3 % (0.0-2.0); EOS # 0.1 K/uL (0.0-0.7); EOS % 1.4 % (0.0-4.0); HEMOGLOBIN 12.4 g/dL (11.0-16.0); LYMPH # 2.5 K/uL (1.0-4.3); LYMPH % 57.8 % (20.0-40.0); MEAN CELL VOLUME 89.2 fL (81.0-99.0); MEAN CORPUSCULAR HEMOGLOBIN 30.5 pg (27.0-31.0); MEAN CORPUSCULAR HGB CONC 34.2 g/dL (33.0-37.0); MEAN PLATELET VOLUME 9.4 fL (7.2-11.7); MONO # 0.4 K/uL (0.0-0.8); MONO % 9.4 % (0.0-10.0); NEUT # 1.3 K/uL (1.8-7.0); NEUT % 31.1 % (50.0-75.0); NRBC % 0.1 % (0.0-2.0); RBC 4.07 Mil/uL (3.80-5.20); RED CELL DISTRIBUTION WIDTH 13.1 % (11.5-14.5); WHITE BLOOD COUNT 4.2 K/uL (4.8-10.8)
[2017-06-22 08:03] LABS: LDL CHOLESTEROL 65 mg/dL (0-129)
[2017-06-22] MEDS: (Novolin 70/30) NPH/Regular 70/30 Units/ml 10 ml vial SC SCH (08:32)
[2017-06-22 08:48] VITALS: BP 90/57; PULSE 71; TEMP 98; O2SAT 98
[2017-06-22 08:51] LABS: ALB/GLOB RATIO 1.1 (1.0-2.1); ALBUMIN 2.6 g/dL (3.5-5.0); ALT/SGPT 20 U/L (9-52); AST/SGOT 12 U/L (14-36); BLOOD UREA NITROGEN 12 mg/dL (7-17); CALCIUM 7.1 mg/dl (8.6-10.4); GFR AFRICAN-AMERICAN > 60; GFR NON-AFRICAN AMERICAN > 60; HDL CHOLESTEROL 38 mg/dL (30-70); MAGNESIUM 1.7 mg/dL (1.6-2.3)
[2017-06-22] MEDS: (Novolin R) Insulin Human Regular 100 units/ml vial SC SCH ×2 (08:52→12:32)
[2017-06-22] MEDS ORDERED: Potassium Chloride 20 mEq ER Tab PO ONE (09:49)
--- NOTE | 2017-06-22 11:40 | CP.PCM.PN ---
Subjective - Date & Time of Evaluation Date of Evaluation: 06/22/17 Time of Evaluation: 11:15 - Subjective Subjective: Hospitalist Progress Note Patient was seen and examined at 11:15 AM 06/22/17 658 B Patient is Croatian speaking only but I was able to communicate with her with my Croatian. 42 year old female who was admitted to the ICU on evening of 06/19/17 after she had been found to be in DKA. This is the second admission for DKA for this patient since 03/19/17. She revealed that she has not been able to consistently take her Insulin and medications at home due to monetary issues and has not been able to follow up with the [facility] due to her being busy at work. Upon ROS: SOB has resolved NOT experiencing palpitations currently She had a small normal bowel movement this morning She is NOT nauseous and has NOT vomited since admission She is NOT experiencing the periumbilical abdominal pain NO burning/pain with urination NO headache NO new changes in vision NO new changes in hearing NO paresthesias NO edema NO chest pain Exam: General: She is awake. She is in NO apparent distress. She is alert and oriented HEENT: NCA, PERRLA, EOMI, NO pharyngeal erythema/exudate, NO lymphadenopathy, NO thyromegaly, Nasal Turbinates are nonerythematous/nonedematous Cardio: NS1 and NS2, NO M/R/G Resp: CTA B/L, NO R/R/W GI: BSx4, Soft, NT, ND, NO HSM, NO guarding/rebound tenderness Ext: Pulses are strong and equal, Capillary Refill is 2 seconds, Pulses are strong and equal Neuro: CN II through XII are grossly intact Assessment and Plan: 1). DKA Likely secondary to not taking her medications at home ICU Team has discontinued Insulin Drip, started patient on Lantus 10 Units SC at 9 AM, and kept maintenance fluids at D5 1/2 NS at 125 ml/hour Consultation with Telecommunicator Supervisor Dr. Sheridan: Novolin 70/30 28 Units SC ACB and 20 Units SC ACD HgBA1 16.6 TSH 2.05 T4 0.99 Lipid Panel: Triglycerides 67, LDL 65, HDL 38 Crestor 5 mg PO HS for now and discharge on Simvastatin 10 mg PO HS HOLD off on THUY I for now (Lisinopril 5 mg PO 1x/day) as blood pressure is at the low end of normal 2). Hypocalcemia Patient has received Calcium Gluconate 3 g since admission It has improved 3). Hypophosphotemia Sodium Phosphate 15 mmol at 50 ml/hour to finish at 1 PM. It has improved 4). Hyponatremia Could have secondary to the Hyperglycemia It has improved 5). Abdominal Pain PeriUmbilical with Vomting Could have been secondary to the DKA This has resolved 6). C/O Palpitations This has resolved EKG shows 1st AV Block at 77 bpm 7). C/O SOB This has resolved 8). C/O Constipation She had a small bowel movement this morning Monitor 9). Prophylaxis Heparin 5,000 Units SC Q8H Pepcid 20 mg PO 2x/day Diabetic Diet Diabetic Counseling 4 H Youth Development Specialist consult to help patient with her medications Confirmed with Bodywork Therapist Aziza that Diabetic [place] will contact patient for delivery of future diabetic insulin/supplies Confirmed with patient that she has insuling syringes and needles at home. She was provided with the following Rx before her discharge: Novolin 70/30 28 Units SC ACB Novolin 70/30 20 Units SC AD Novolin 70/30 14 Units SC HS Simvastatin 10 mg PO HS I also stressed the importance of follow up at our [facility] Floor B in the next 7 to 10 days by calling [phone]. Shukri Lynn D.O. Objective - Vital Signs/Intake and Output Vital Signs (last 24 hours): Temp Pulse Resp BP Pulse Ox 98 F 71 20 90/57 L 98 06/22/17 08:00 06/22/17 08:00 06/22/17 08:00 06/22/17 08:00 06/22/17 08:00 Intake and Output: 06/22/17 06/22/17 06:59 18:59 Intake Total 1050 Balance 1050 - Medications Medications: Current Medications Acetaminophen (Tylenol 325mg Tab) 650 mg PO Q6 PRN PRN Reason: pain, fever Last Admin: 06/20/17 22:35 Dose: 650 mg Famotidine (Pepcid) 20 mg PO BID [facility] Last Admin: 06/22/17 10:24 Dose: 20 mg Heparin Sodium (Porcine) (Heparin) 5,000 units SC Q8 [facility] Last Admin: 06/22/17 05:12 Dose: 5,000 units Sodium Chloride (Sodium Chloride 0.9%) 1,000 mls @ 100 mls/hr IV .Q10H [facility] Last Admin: 06/22/17 10:29 Dose: 100 mls/hr Insulin Human Isoph/Insulin Regular (Novolin 70/30 (70/30 Units/Ml) 10 Ml) 28 units SC ACB [facility] Insulin Human Isoph/Insulin Regular (Novolin 70/30 (70/30 Units/Ml) 10 Ml) 20 units SC ACD [facility] Insulin Human NPH (Novolin N) 14 unit SC HS [facility] Insulin Human Regular (Novolin R) 0 unit SC ACHS [facility] PRN Reason: Protocol Last Admin: 06/22/17 08:52 Dose: Not Given Rosuvastatin Calcium (Crestor) 5 mg PO HS [facility] Last Admin: 06/21/17 21:18 Dose: 5 mg - Labs Labs: 06/22/17 07:12 06/22/17 07:12
--- NOTE | 2017-06-22 13:02 | CP.PCM.DIS ---
<Kamala Martinez - Last Filed: 06/22/17 17:10> Provider - Provider Date of Admission: 06/19/17 20:44 Attending physician: Silviano Echols MD Primary care physician: [facility] Consults: Endo: Dr. Ward Time Spent in preparation of Discharge (in minutes): 45 Diagnosis - Discharge Diagnosis (1) DKA (diabetic ketoacidoses) Status: Resolved Priority: Medium (2) Hypophosphatemia Status: Resolved (3) Hypocalcemia Status: Resolved (4) Hyponatremia Status: Resolved Hospital Course - Lab Results Lab Results: Micro Results 06/19/17 21:54 Nose MRSA Culture (Admit) - Final MRSA NOT DETECTED Most Recent Lab Values WBC 4.2 K/uL (4.8-10.8) L 06/22/17 07:12 RBC 4.07 Mil/uL (3.80-5.20) 06/22/17 07:12 Hgb 12.4 g/dL (11.0-16.0) 06/22/17 07:12 Hct 36.3 % (34.0-47.0) 06/22/17 07:12 MCV 89.2 fL (81.0-99.0) 06/22/17 07:12 MCH 30.5 pg (27.0-31.0) 06/22/17 07:12 MCHC 34.2 g/dL (33.0-37.0) 06/22/17 07:12 RDW 13.1 % (11.5-14.5) 06/22/17 07:12 Plt Count 172 K/uL (130-400) 06/22/17 07:12 MPV 9.4 fL (7.2-11.7) 06/22/17 07:12 Neut % (Auto) 31.1 % (50.0-75.0) L 06/22/17 07:12 Lymph % (Auto) 57.8 % (20.0-40.0) H 06/22/17 07:12 [place] % (Auto) 9.4 % (0.0-10.0) 06/22/17 07:12 Eos % (Auto) 1.4 % (0.0-4.0) 06/22/17 07:12 Baso % (Auto) 0.3 % (0.0-2.0) 06/22/17 07:12 Neut # 1.3 K/uL (1.8-7.0) L 06/22/17 07:12 Lymph # 2.5 K/uL (1.0-4.3) 06/22/17 07:12 [place] # 0.4 K/uL (0.0-0.8) 06/22/17 07:12 Eos # 0.1 K/uL (0.0-0.7) 06/22/17 07:12 Baso # 0.0 K/uL (0.0-0.2) 06/22/17 07:12 pO2 29 mm/Hg (30-55) L 06/19/17 19:00 VBG pH 7.08 (7.32-7.43) L* 06/19/17 19:00 VBG pCO2 25 mmHg (40-60) L 06/19/17 19:00 VBG HCO3 6.7 mmol/L 06/19/17 19:00 VBG Total CO2 8.2 mmol/L (22-28) L 06/19/17 19:00 VBG O2 Sat (Calc) 65.3 % (40-65) H 06/19/17 19:00 VBG Base Excess -21.1 mmol/L (0.0-2.0) L 06/19/17 19:00 VBG Potassium 3.3 mmol/L (3.6-5.2) L 06/19/17 19:00 Sodium 132.0 mmol/l (132-148) 06/19/17 19:00 Chloride 102.0 mmol/L (98-107) 06/19/17 19:00 Glucose 358 mg/dl (65-105) H 06/19/17 19:00 Lactate 0.8 mmol/L (0.7-2.1) 06/19/17 19:00 Crit Value Called To Kike choudhary 06/19/17 19:00 Crit Value Called By Le barkley 06/19/17 19:00 Crit Value Read Back Y 06/19/17 19:00 Blood Gas Notified Time 1903 06/19/17 19:00 Sodium 132 mmol/L (132-148) 06/22/17 07:12 Potassium 3.5 mmol/L (3.6-5.2) L 06/22/17 07:12 Chloride 101 mmol/L (98-107) 06/22/17 07:12 Carbon Dioxide 29 mmol/L (22-30) 06/22/17 07:12 Anion Gap 5 (10-20) L 06/22/17 07:12 BUN 12 mg/dL (7-17) 06/22/17 07:12 Creatinine 0.3 mg/dL (0.7-1.2) L 06/22/17 07:12 Est GFR ( Amer) > 60 06/22/17 07:12 Est GFR (Non-Af Amer) > 60 06/22/17 07:12 POC Glucose (mg/dL) 219 mg/dL (65-110) H 06/22/17 11:10 Random Glucose 184 mg/dL (65-105) H 06/22/17 07:12 Hemoglobin A1c 16.6 % (4.2-6.5) H 06/19/17 21:44 Calcium 7.1 mg/dl (8.6-10.4) L 06/22/17 07:12 Phosphorus 3.3 mg/dL (2.5-4.5) 06/22/17 07:12 Magnesium 1.7 mg/dL (1.6-2.3) 06/22/17 07:12 Total Bilirubin 0.2 mg/dL (0.2-1.3) 06/22/17 07:12 AST 12 U/L (14-36) L 06/22/17 07:12 ALT 20 U/L (9-52) 06/22/17 07:12 Alkaline Phosphatase 38 U/L (38-126) 06/22/17 07:12 Total Creatine Kinase 32 U/L (30-135) 06/20/17 21:08 CK-MB (Mass) 0.76 ng/mL (0.0-3.38) 06/20/17 21:08 Troponin I < 0.0120 ng/mL (0.00-0.120) 06/20/17 21:08 NT-Pro-B Natriuret Pep 38.9 pg/mL (0-450) 06/19/17 21:44 Total Protein 5.0 g/dL (6.3-8.3) L 06/22/17 07:12 Albumin 2.6 g/dL (3.5-5.0) L 06/22/17 07:12 Globulin 2.4 gm/dL (2.2-3.9) 06/22/17 07:12 Albumin/Globulin Ratio 1.1 (1.0-2.1) 06/22/17 07:12 Triglycerides 67 mg/dL (0-149) D 06/22/17 07:12 Cholesterol 108 mg/dL (0-199) 06/22/17 07:12 LDL Cholesterol Direct 65 mg/dL (0-129) 06/22/17 07:12 HDL Cholesterol 38 mg/dL (30-70) 06/22/17 07:12 Lipase 153 U/L (23-300) 06/19/17 18:42 Free T4 0.99 ng/dL (0.78-2.19) 06/22/17 07:12 TSH 3rd Generation 2.05 mIU/L (0.46-4.68) 06/22/17 07:12 Venous Blood Potassium 3.3 mmol/L (3.6-5.2) L 06/19/17 19:00 Urine Color Straw (YELLOW) 06/19/17 18:42 Urine Clarity Clear (Clear) 06/19/17 18:42 Urine pH 6.0 (5.0-8.0) 06/19/17 18:42 Ur Specific [place] 1.026 (1.003-1.030) 06/19/17 18:42 Urine Protein 1+ mg/dL (NEGATIVE) H 06/19/17 18:42 Urine Glucose (UA) 3+ mg/dL (Normal) H 06/19/17 18:42 Urine Ketones 2+ mg/dL (NEGATIVE) H 06/19/17 18:42 Urine Blood 2+ (NEGATIVE) H 06/19/17 18:42 Urine Nitrate Negative (NEGATIVE) 06/19/17 18:42 Urine Bilirubin Negative (NEGATIVE) 06/19/17 18:42 Urine Urobilinogen Normal mg/dL (0.2-1.0) 06/19/17 18:42 Ur Leukocyte Esterase Neg [place]/uL (Negative) 06/19/17 18:42 Urine WBC (Auto) 4 /hpf (0-5) 06/19/17 18:42 Urine RBC (Auto) 17 /hpf (0-3) H 06/19/17 18:42 Ur Squamous Epith Cells 2 /hpf (0-5) 06/19/17 18:42 Urine Bacteria Rare (<OCC) 06/19/17 18:42 Urine HCG, Qual Negative (NEGATIVE) 06/19/17 18:42 Serum Ketones Moderate (NEGATIVE) 06/19/17 21:44 - Hospital Course Hospital Course: "CC: abdominal pain This is a 42 year old female with PMHx of uncontrolled diabetes who presented to the ED complaining of abdominal pain for the past 3 days. Pain is constant and localized in the janki-umbilical region. It does not radiate and is not associated with meals. Patient has tried Advil at home without relief. No alleviating factors were noted by the patient. Patient denies nausea but admits to one episode of vomiting today with non bloody yellow sputum. Patient denies diarrhea but admits to constipation. Her last BM was 3 days prior. Patient also complains of dysuria that also began about 3 days ago. Patient denies urinary frequency but does state that her urine output is decreased. Patient states that she has gotten short of breath with ambulation over these last 3 days. 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 Patient denies fever, chills, chest pain. Of note , patient states that she has not taken her diabetic medications for three months stating she ran out of her prescriptions. Patient states that she takes her insulin only in the morning and will vary the dose depending upon how high her sugar is. She is unable to return to the clinic to get refills because of how busy she is with her job." Hospital Course: Patient was admitted to ICU for DKA secondary to uncontrolled diabetes due to poor follow up and medication non-compliance. Her glucose was 333, and HbA1C 16.6. Blood gas showed metabolic acidosis with pH of 7.08, VBG pCO2 25, and VBG HCO3 6.7. Patient's UA showed 1+ protein, 3+ glucose, 2+ ketones, 2+ blood, and negative for nitrates and LE. Moderate serum ketone levels were also detected. She was treated with insulin drip as per DKA protocol, potassium, and fluids. Patient was transferred out of the ICU when her acidosis resolved. Endocrinology (Dr. Ward) was consulted and Novolin 70/30 regimen was recommended. Patient was given education on her diabetes, and medications as well as importance of medication compliance. Patient also complained of constipation, and palpitations which have resolved. Her EKG showed 1st AV block at 77 bpm. Patient's history of HLD was managed with Crestor 5 mg. Patient had hyponatremia (Na+ 126) upon admission likely secondary to hyperglycemia. She also presented with hypocalcemia, for which she received calcium gluconate, and hypophosphotemia, for which she received sodium phosphate. Her hyponatremia, hypophosphotemia have resolved, and her hypocalcemia has improved. This is a summary of patient's hospital course. Please see the chart for full details. Patient stable for discharge as per Dr. Lynn. Patient adviced on importance of being compliant with her medications, and following up with her appointments at [facility]. Patient to return to ED if symptoms return. Discharge Exam - Head Exam Head Exam: ATRAUMATIC, NORMAL INSPECTION, NORMOCEPHALIC - Eye Exam Eye Exam: EOMI, Normal appearance - ENT Exam ENT Exam: Mucous Membranes Moist - Respiratory Exam Respiratory Exam: Clear to PA & Lateral, NORMAL BREATHING PATTERN, UNREMARKABLE - Cardiovascular Exam Cardiovascular Exam: REGULAR RHYTHM, RRR, +S1 - GI/Abdominal Exam GI & Abdominal Exam: Normal Bowel Sounds, Soft. absent: Tenderness - Extremities Exam Extremities exam: full ROM, normal inspection - Neurological Exam Neurological exam: Alert, Oriented x3 - Psychiatric Exam Psychiatric exam: Normal Affect, Normal Mood - Skin Skin Exam: Intact, Normal Color, Warm Discharge Plan - Discharge Medications Prescriptions: Aspirin 81 mg PO DAILY #30 tab.chew Insulin Human (NPH)/Regular [Novolin 70/30 (70/30 units/ml) 10 ml] 28 units SC ACB #1 vial Insulin Human (NPH)/Regular [Novolin 70/30 (70/30 units/ml) 10 ml] 20 units SC ACD #1 vial Insulin Human Isophane (NPH) [Novolin N] 14 unit SC HS #1 vial Simvastatin 10 mg PO HS #30 tablet - Follow Up Plan Condition: CRITICAL Disposition: HOME/ ROUTINE Instructions: Aspirin (By mouth), Simvastatin (By mouth), Insulin NPH/Regular ( By injection), Diabetic Ketoacidosis (DC), Diabetic Ketoacidosis (GEN), Diabetic Foot Care (DC), Basic Carbohydrate Counting (DC), Meal Planning with the Plate Method (DC), Meal Planning with Diabetes Exchanges (DC) Additional Instructions: Patient stable for discharge as per Dr. Lynn. Patient explained importance of following up with the [facility] for diabetes management. ([phone] Patient explained the importance of using her insulin and checking her blood sugars. Patient will be contacted by insulin clinic on information about further insulin supplies. Patient has lancets and strips at home. Patient to take: Novolin 70/30 28 units in the morning before breakfast. Novolin 70/30 20 u before dinner. Novolin 70/30 14 units before bed. Patient to take Simvastatin 10 mg before bed. Patient to take Aspirin 81mg daily. Patient understand instructions and agrees. Patient to please return to ED if symptoms return. Referrals: [facility] [Provider Group] [facility] at [facility] [Outside] <Shukri Lynn - Last Filed: 06/22/17 20:25> Provider - Provider Date of Admission: 06/19/17 20:44 Attending physician: Silviano Echols MD Hospital Course - Lab Results Lab Results: Micro Results 06/19/17 21:54 Nose MRSA Culture (Admit) - Final MRSA NOT DETECTED Most Recent Lab Values WBC 4.2 K/uL (4.8-10.8) L 06/22/17 07:12 RBC 4.07 Mil/uL (3.80-5.20) 06/22/17 07:12 Hgb 12.4 g/dL (11.0-16.0) 06/22/17 07:12 Hct 36.3 % (34.0-47.0) 06/22/17 07:12 MCV 89.2 fL (81.0-99.0) 06/22/17 07:12 MCH 30.5 pg (27.0-31.0) 06/22/17 07:12 MCHC 34.2 g/dL (33.0-37.0) 06/22/17 07:12 RDW 13.1 % (11.5-14.5) 06/22/17 07:12 Plt Count 172 K/uL (130-400) 06/22/17 07:12 MPV 9.4 fL (7.2-11.7) 06/22/17 07:12 Neut % (Auto) 31.1 % (50.0-75.0) L 06/22/17 07:12 Lymph % (Auto) 57.8 % (20.0-40.0) H 06/22/17 07:12 [place] % (Auto) 9.4 % (0.0-10.0) 06/22/17 07:12 Eos % (Auto) 1.4 % (0.0-4.0) 06/22/17 07:12 Baso % (Auto) 0.3 % (0.0-2.0) 06/22/17 07:12 Neut # 1.3 K/uL (1.8-7.0) L 06/22/17 07:12 Lymph # 2.5 K/uL (1.0-4.3) 06/22/17 07:12 [place] # 0.4 K/uL (0.0-0.8) 06/22/17 07:12 Eos # 0.1 K/uL (0.0-0.7) 06/22/17 07: Baso # 0.0 K/uL (0.0-0.2) 06/22/17 07:12 pO2 29 mm/Hg (30-55) L 06/19/17 19:00 VBG pH 7.08 (7.32-7.43) L* 06/19/17 19:00 VBG pCO2 25 mmHg (40-60) L 06/19/17 19:00 VBG HCO3 6.7 mmol/L 06/19/17 19:00 VBG Total CO2 8.2 mmol/L (22-28) L 06/19/17 19:00 VBG O2 Sat (Calc) 65.3 % (40-65) H 06/19/17 19:00 VBG Base Excess -21.1 mmol/L (0.0-2.0) L 06/19/17 19:00 VBG Potassium 3.3 mmol/L (3.6-5.2) L 06/19/17 19:00 Sodium 132.0 mmol/l (132-148) 06/19/17 19:00 Chloride 102.0 mmol/L (98-107) 06/19/17 19:00 Glucose 358 mg/dl (65-105) H 06/19/17 19:00 Lactate 0.8 mmol/L (0.7-2.1) 06/19/17 19:00 Crit Value Called To Kike choudhary 06/19/17 19:00 Crit Value Called By Le barkley 06/19/17 19:00 Crit Value Read Back Y 06/19/17 19:00 Blood Gas Notified Time 1903 06/19/17 19:00 Sodium 132 mmol/L (132-148) 06/22/17 07:12 Potassium 3.5 mmol/L (3.6-5.2) L 06/22/17 07:12 Chloride 101 mmol/L (98-107) 06/22/17 07:12 Carbon Dioxide 29 mmol/L (22-30) 06/22/17 07:12 Anion Gap 5 (10-20) L 06/22/17 07:12 BUN 12 mg/dL (7-17) 06/22/17 07:12 Creatinine 0.3 mg/dL (0.7-1.2) L 06/22/17 07:12 Est GFR ( Amer) > 60 06/22/17 07:12 Est GFR (Non-Af Amer) > 60 06/22/17 07:12 POC Glucose (mg/dL) 219 mg/dL (65-110) H 06/22/17 11:10 Random Glucose 184 mg/dL (65-105) H 06/22/17 07:12 Hemoglobin A1c 16.6 % (4.2-6.5) H 06/19/17 21:44 Calcium 7.1 mg/dl (8.6-10.4) L 06/22/17 07:12 Phosphorus 3.3 mg/dL (2.5-4.5) 06/22/17 07:12 Magnesium 1.7 mg/dL (1.6-2.3) 06/22/17 07:12 Total Bilirubin 0.2 mg/dL (0.2-1.3) 06/22/17 07:12 AST 12 U/L (14-36) L 06/22/17 07:12 ALT 20 U/L (9-52) 06/22/17 07:12 Alkaline Phosphatase 38 U/L (38-126) 06/22/17 07:12 Total Creatine Kinase 32 U/L (30-135) 06/20/17 21:08 CK-MB (Mass) 0.76 ng/mL (0.0-3.38) 06/20/17 21:08 Troponin I < 0.0120 ng/mL (0.00-0.120) 06/20/17 21:08 NT-Pro-B Natriuret Pep 38.9 pg/mL (0-450) 06/19/17 21:44 Total Protein 5.0 g/dL (6.3-8.3) L 06/22/17 07:12 Albumin 2.6 g/dL (3.5-5.0) L 06/22/17 07:12 Globulin 2.4 gm/dL (2.2-3.9) 06/22/17 07:12 Albumin/Globulin Ratio 1.1 (1.0-2.1) 06/22/17 07:12 Triglycerides 67 mg/dL (0-149) D 06/22/17 07:12 Cholesterol 108 mg/dL (0-199) 06/22/17 07:12 LDL Cholesterol Direct 65 mg/dL (0-129) 06/22/17 07:12 HDL Cholesterol 38 mg/dL (30-70) 06/22/17 07:12 Lipase 153 U/L (23-300) 06/19/17 18:42 Free T4 0.99 ng/dL (0.78-2.19) 06/22/17 07:12 TSH 3rd Generation 2.05 mIU/L (0.46-4.68) 06/22/17 07:12 Venous Blood Potassium 3.3 mmol/L (3.6-5.2) L 06/19/17 19:00 Urine Color Straw (YELLOW) 06/19/17 18:42 Urine Clarity Clear (Clear) 06/19/17 18:42 Urine pH 6.0 (5.0-8.0) 06/19/17 18:42 Ur Specific [place] 1.026 (1.003-1.030) 06/19/17 18:42 Urine Protein 1+ mg/dL (NEGATIVE) H 06/19/17 18:42 Urine Glucose (UA) 3+ mg/dL (Normal) H 06/19/17 18:42 Urine Ketones 2+ mg/dL (NEGATIVE) H 06/19/17 18:42 Urine Blood 2+ (NEGATIVE) H 06/19/17 18:42 Urine Nitrate Negative (NEGATIVE) 06/19/17 18:42 Urine Bilirubin Negative (NEGATIVE) 06/19/17 18:42 Urine Urobilinogen Normal mg/dL (0.2-1.0) 06/19/17 18:42 Ur Leukocyte Esterase Neg [place]/uL (Negative) 06/19/17 18:42 Urine WBC (Auto) 4 /hpf (0-5) 06/19/17 18:42 Urine RBC (Auto) 17 /hpf (0-3) H 06/19/17 18:42 Ur Squamous Epith Cells 2 /hpf (0-5) 06/19/17 18:42 Urine Bacteria Rare (<OCC) 06/19/17 18:42 Urine HCG, Qual Negative (NEGATIVE) 06/19/17 18:42 Serum Ketones Moderate (NEGATIVE) 06/19/17 21:44 Attending/Attestation - Attestation I have personally seen and examined this patient.: Yes I have fully participated in the care of the patient.: Yes I have reviewed all pertinent clinical information, including history, physical exam and plan: Yes Notes (Text): 06/22/17 20:25 Please also see my progress note 06/22/17. Exam, assessment and plan were thoroughly gone over with the resident. Shukri Lynn D.O.
--- NOTE | 2017-06-22 15:02 | CARD ---
APPROVED REPORT EKG Measurement Heart [id number] <Conclusion> Sinus rhythm with 1st degree AV block with occasional premature ventricular complexes Low voltage QRS Cannot rule out Anterior infarct, age undetermined Abnormal ECG
[2017-06-22] MEDS ORDERED: (Novolin 70/30) NPH/Regular 70/30 Units/ml 10 ml vial SC SCH (16:30)
[2017-06-22] MEDS ORDERED: (Novolin N) Insulin Human Isophane (NPH) 100 u/ml 10 ml vial SC SCH (22:00)
--- NOTE | 2017-06-22 23:07 | CARD ---
APPROVED REPORT EKG Measurement Heart [id number] <Conclusion> Sinus rhythm with 1st degree AV block Otherwise normal ECG
[2017-06-23] MEDS ORDERED: (Novolin 70/30) NPH/Regular 70/30 Units/ml 10 ml vial SC SCH (07:30)
--- NOTE | 2017-06-23 10:45 | PN ---
DATE: LOCATION: Room 658. This is a 42-year-old female with recent uncontrolled type 2 insulin requiring diabetes, now being followed closely for metabolic management. Her glycemic levels are fluctuating, but improved and the latest glucose levels have ranged from 183 to 221 mg/dL. The latest chemistry showed BUN of 12, sodium 132, potassium 32.5, chloride 101, CO2 of 29, glucose 184 and creatinine 0.3. So at this time, we will modify once again her basal and premixed insulin regimen and increase the NPH to 14 units subcutaneous at bedtime daily to start tonight. We will also modify the premixed insulin regimen with Novolin 70/30 given as 28 units subcutaneous before meals, breakfast daily and Novolin 70/30 given as 20 units subcutaneous at bedtime daily as ordered. We will titrate incrementally as indicated to optimize metabolic control. We will obtain serial chemistries and supplement accordingly as needed. We will follow and advice accordingly. Susanne Ward MD
== END 2017-06-22 14:00 | disposition home or self-care (01) | DRG 294 ==
LOC: C.ER 16:33 → C.9I 20:44 → C.6T 06-21 01:11
PROVIDERS: ADMIT Family Medicine; ATTEND Family Medicine
DX: E11.10 Type 2 diabetes mellitus with ketoacidosis without coma (principal); E83.51 Hypocalcemia; E86.0 Dehydration; E87.1 Hypo-osmolality and hyponatremia; E87.6 Hypokalemia; E78.5 Hyperlipidemia, unspecified; I10 Essential (primary) hypertension; I44.0 Atrioventricular block, first degree; K59.00 Constipation, unspecified; Z79.4 Long term (current) use of insulin; Z91.14 Patient's other noncompliance with medication regimen; R00.2 Palpitations; Z68.21 Body mass index [BMI] 21.0-21.9, adult